=== PATIENT | female | born 1955 | race Caucasian/White ===

== ENCOUNTER → 2016-08-05 | Outpatient (CLI) | payer OTHER ==
--- NOTE | 2016-08-05 12:40 | MA ---
Screening Digital Mammogram With iCAD Analysis Clinical Indications: Routine screening. Her maternal grandmother was diagnosed with breast cancer in her 70s and a maternal aunt in her 60s. Technique: Standard cephalocaudal and mediolateral oblique projections were obtained. This examinatio n was processed by the iCAD computer aided detection system. Comparison: June 2015, May 2014, May 2013, May 2012, May 2011, April 2011, March 2010, February 2009. Breast density: Type C; Heterogeneously dense. Findings: CAD was reviewed. No masses, suspicious calcifications or other signs of malignancy are id entified. There has been no significant change in the appearance of either breast. Impression: Negative mammogram. BI-RADS 1. Recommendation: Routine screening in one year as long as physical examination is negative in this pat ient with heterogeneously dense breasts. [facility] a result letter to the patient. Dense breast parenchyma diminishes mammographic sensitivity. Negative mammography should not preclude additional workup of a clinically suspicious finding. The patient's information is entered into a reminder system with a target due date for her next mammo gram.
== END ==
LOC: BRMIMAGING 11:08
DX: Z12.31 Encounter for screening mammogram for malignant neoplasm of breast (principal)
CPT/HCPCS: G0202

== ENCOUNTER → 2017-08-20 | Outpatient (CLI) | payer OTHER | LOC: BRMIMAGING 11:08 | PROVIDERS: ATTEND Obstetrics & Gynecology | DX: Z12.31 Encounter for screening mammogram for malignant neoplasm of breast (principal) ==

== ENCOUNTER → 2018-08-21 | Outpatient (CLI) | payer OTHER | LOC: BRMIMAGING 10:52 | PROVIDERS: ATTEND Obstetrics & Gynecology | DX: Z12.31 Encounter for screening mammogram for malignant neoplasm of breast (principal); Z80.3 Family history of malignant neoplasm of breast ==

== ENCOUNTER 2018-09-03 05:28 | Inpatient (IN) | payer OTHER | END 2018-09-08 16:27 | LOC: F3N 05:28 → F2N 13:02 ==

== ENCOUNTER 2018-09-15 14:38 | Inpatient (IN) | payer OTHER ==
[2018-09-15] MEDS ORDERED: ACETAMINOPHEN 325 MG TAB PO PRN (17:22)
[2018-09-15] MEDS ORDERED: GADOBUTROL 10 ML VIAL IVP ONE (18:09)
[2018-09-15] MEDS: NS 1,000 ML IV SCH (21:16)
[2018-09-15] MEDS: oxyCODONE IR 5 MG TAB PO PRN (21:17)
[2018-09-15 22:22] LABS: PLATELET COUNT 410 10^3/uL (150-400)
[2018-09-16] MEDS ORDERED: BUPIVACAINE 0.25% 30 ML SDV ONE (00:03)
[2018-09-16] MEDS ORDERED: EPINEPHrine 1 MG/ML INJ ONE (00:03)
[2018-09-16] MEDS ORDERED: CHLORHEXIDINE GLUC HIBICLENS 118 ML BTL TP ONE (00:03)
[2018-09-16] MEDS ORDERED: THROMBIN (BOVINE) 5,000 UNIT VIAL TP ONE (00:03)
[2018-09-16] MEDS ORDERED: BACITRACIN 50,000 UNITS/10 ML SYR IRR ONE ×2 (00:04→06:50)
[2018-09-16] MEDS ORDERED: AVITENE POWDER 1 GM JAR TP ONE (00:05)
[2018-09-16] MEDS: HYDROmorphONE/DILAUDID 1 MG/ML INJ IVP PRN (03:07)
[2018-09-16 05:19] LABS: PLATELET COUNT 392 10^3/uL (150-400)
[2018-09-16] MEDS ORDERED: MIDAZOLAM 2 MG/2 ML VIAL IVP ONE (05:47)
--- NOTE | 2018-09-16 05:50 | PDANEPAE ---
ANE History of Present Illness infection s/p back surgery on 09/03/18 ANE Past Medical History - Cardiovascular History Hx Hypertension: No Hx Arrhythmias: No Hx Chest Pain: No Hx Coronary Artery / Peripheral Vascular Disease: No Hx CHF / Valvular Disease: No Hx Palpitations: No Cardiovascular History Comment: RUNS LOW BP - Pulmonary History Hx COPD: No Hx Asthma/Reactive Airway Disease: No Hx Recent Upper Respiratory Infection: No Hx Oxygen in Use at Home: No Hx Sleep Apnea: No Sleep Apnea Screening Result - Last Documented: Negative - Neurologic History Hx Cerebrovascular Accident: No Hx Seizures: No Hx Dementia: No - Endocrine History Hx Diabetes: No Hypothyroid: Yes Hyperthyroid: No Obesity: no Endocrine History Comment: HYPOTHYROID - Renal History Hx Renal Disorders: Yes Renal History Comment: URINARY RETENTION - Liver History Hx Hepatic Disorders: No - Neurological & Psychiatric Hx Hx Neurological and Psychiatric Disorders: No - Cancer History Hx Cancer: No Cancer History Comment: BASAL CELLS REMOVED - Congenital Disorder History Hx Congenital Disorders: No - GI History Hx Gastrointestinal Disorders: No Gastrointestinal History Comment: GERD - Other Health History Other Health History: MICH OVARIAN CYSTS. DDD. SCOLOSIS. CHRONIC BACK PAIN - Chronic Pain History Chronic Pain: Yes (BACK) - Surgical History Prior Surgeries: NONE ANE Review of Systems Review of systems is: negative Review of Systems: - Exercise capacity Exercise capacity: >=4 METS ANE Patient History - Allergies Allergies/Adverse Reactions: Penicillins Allergy (Verified 09/03/18 06:36) Rash - Home Medications Home Medications: Levothyroxine [Synthroid 88 mcg (*)] 88 mcg PO HS 01/04/16 [Last Taken 09/02/18 21:00] Multivitamins [Multivitamin (*)] 1 each PO DAILY 01/04/16 [Last Taken 08/24/18] Estring 1 each VG Q90D 08/17/18 [Last Taken 08/24/18] [place]-3 Fatty Acids [Fish Oil 1000 mg (*)] 1,000 mg PO DAILY 08/17/18 [Last Taken 08/24/18] Herbals/Supplements -Info Only 1 ea PO 09/15/18 [Last Taken Unknown] Hydrocodone/Acetaminophen [Hydrocodon-Acetaminophen 5-325] 1 - 2 each PO Q4- 6PRN PRN 09/15/18 [Last Taken Unknown] Ibuprofen [Ibu-200] 200 - 600 mg PO Q8HRS PRN 09/15/18 [Last Taken Unknown] - NPO status NPO Status: no food or drink >8 hours NPO Since - Liquids (Date): 09/15/18 NPO Since - Liquids (Time): 23:55 NPO Since - Solids (Date): 09/15/18 NPO Since - Solids (Time): 22:00 - Anes Hx Anes Hx: no prior problems - Smoking Hx Smoking Status: Former smoker - Family Anes Hx Family Anes Hx: none Family Hx Anesthesia Complications: NONE ANE Labs/Vital Signs - Labs Result Diagrams: 09/16/18 04:45 09/15/18 19:17 - Vital Signs Vital Signs: reviewed preoperatively; see RN documention for details Blood Pressure: 100/65 Heart Rate: 97 Respiratory Rate: 16 O2 Sat (%): 94 Height: 162.56 cm Weight: 54.25 kg ANE Physical Exam - Airway Neck exam: FROM Mallampati Score: Class 2 Mouth exam: normal dental/mouth exam - Pulmonary Pulmonary: no respiratory distress - Cardiovascular Cardiovascular: regular rate and rhythym - ASA Status ASA Status: II, E ANE Anesthesia Plan Anesthesia Plan: general endotracheal anesthesia
[2018-09-16] MEDS ORDERED: MIDAZOLAM 2 MG/2 ML VIAL ONE (05:53)
[2018-09-16] MEDS ORDERED: PROPOFOL 200 MG/20 ML VIAL ONE (05:56)
[2018-09-16] MEDS ORDERED: LACTULOSE 20 GM/30 ML UDCUP PO PRN (05:57)
[2018-09-16] MEDS ORDERED: BISACODYL 10 MG SUPP PR PRN (05:57)
[2018-09-16] MEDS ORDERED: fentaNYL 100 MCG/2 ML INJ ONE (05:57)
[2018-09-16] MEDS ORDERED: NALOXONE HCL 0.4 MG/ML INJ IVP PRN ×2 (05:57→07:11)
[2018-09-16] MEDS ORDERED: diphenhydrAMINE 25 MG CAP PO PRN (05:57)
--- NOTE | 2018-09-16 05:57 | PDHPUP ---
History & Physical Update H&P update statement: This history and physical update is based on an assessment of the patient which was completed after admission or registration (within 24 hours), but prior to the surgery/procedure. H&P update: H&P reviewed & patient examined, no change in patient's condition since H&P completed
[2018-09-16] MEDS ORDERED: ESTRING VG SCH (06:00)
--- NOTE | 2018-09-16 06:22 | SOAPPROG ---
SOAP Progress Note Assessment/Plan: Plan: Pt has post op fluid collection noted on MRI of the L spine. She has an elevated CRP and WBC. She has lower back pain. Dr Kuo is worried about post op infection. CXR ok. UA ok. Pt's MRI was reviewed with Dr Kuo and recommended to take for I and D of L spine incision. Consents reviewed in detail. Risks and need for surgery was discussed and reviewed. Pt understands and agrees and wants to proceed. To OR this am at 0600 09/16/18 06:19 Objective: Vital Signs Temp Pulse Resp BP Pulse Ox 38.1 C 97 16 100/65 94 09/16/18 03:12 09/16/18 05:50 09/16/18 05:50 09/16/18 05:50 09/16/18 05:50 Laboratory Results 09/16/18 04:45 09/15/18 19:17 09/15/18 09/16/18 09/17/18 05:59 05:59 05:59 Output Total 1700 Balance -1700 ICD10 Worksheet Patient Problems: Problems Problem Status Onset Fusion of spine of thoracolumbar region Acute MRSA (methicillin resistant Staphylococcus aureus) Acute 08/02/16
[2018-09-16] MEDS ORDERED: DEXAMETHASONE 4 MG/ML VIAL ONE (06:26)
[2018-09-16] MEDS ORDERED: ONDANSETRON 4 MG/2 ML VIAL ONE (06:26)
[2018-09-16] MEDS ORDERED: ROCURONIUM 50 MG/5 ML VIAL ONE (06:26)
[2018-09-16] MEDS ORDERED: VANCOMYCIN 1 GM VIAL ONE ×2 (06:49→07:03)
[2018-09-16] MEDS ORDERED: VANCOMYCIN HCL/NORMAL SALINE 250 ML IV ONE (07:00)
[2018-09-16] MEDS ORDERED: CEFUROXIME 1,500 MG in NS 50 ML IV SCH (07:00)
[2018-09-16] MEDS ORDERED: SUGAMMADEX SODIUM 200 MG/2 ML VIAL IVP ONE (07:05)
[2018-09-16] MEDS ORDERED: oxyCODONE IR 5 MG TAB PO PRN (07:11)
[2018-09-16] MEDS ORDERED: LABETALOL HCL 5 MG/ML 20 ML MDV IVP PRN (07:11)
[2018-09-16] MEDS ORDERED: PROMETHAZINE HCL 25 MG/ML INJ IVP PRN (07:11)
[2018-09-16] MEDS ORDERED: MEPERIDINE 25 MG/0.5 ML AMP IVP PRN (07:11)
[2018-09-16] MEDS ORDERED: METOCLOPRAMIDE 10 MG/2 ML VIAL IVP PRN (07:11)
[2018-09-16] MEDS ORDERED: PHENYLEPHRINE HCL 100 MCG/ML SYR IVP PRN (07:11)
[2018-09-16] MEDS ORDERED: DEXAMETHASONE 4 MG/ML VIAL IVP PRN (07:11)
[2018-09-16] MEDS ORDERED: ONDANSETRON 4 MG/2 ML VIAL IVP PRN (07:11)
[2018-09-16] MEDS ORDERED: ALBUTEROL 3 ML DEYVIAL IH PRN (07:11)
[2018-09-16] MEDS ORDERED: ACETAMINOPHEN 500 MG TAB PO PRN (07:11)
[2018-09-16] MEDS ORDERED: KETOROLAC 30 MG/1 ML SDV ONE (07:18)
[2018-09-16] MEDS ORDERED: BACITRACIN ZINC 0.5 OZ OINTTUBE TP ONE (07:26)
--- NOTE | 2018-09-16 07:46 | POSTOPPROG ---
Post Op Note Date of Operation: 09/16/18 Surgeon: Yan Nolasco Biology Lecturer: RENATA Hayden Anesthesiologist: MD Tom Anesthesia: GET(General Endotracheal) Pre-op Diagnosis: back pain after T-L spine surgery, fevers Post-op Diagnosis: wound infection Indication: elevated CRP/ESR and fevers Procedure: wound washout for T-L spine fusion Findings: see op report Inf/Abcess present in the surg proc area at time of surgery?: No Depth: Deep Incisional (Fascial) EBL: 100-500 Total fluids administered: see anesthesia record Complications: none Bowel Protocol: Yes Clean Closure Performed: Yes Drains: Baldo Lord Specimen(s): cultures
[2018-09-16] MEDS: fentaNYL 100 MCG/2 ML INJ IVP PRN ×4 (07:49→08:27)
--- NOTE | 2018-09-16 07:52 | SOAPPROG ---
SOAP Progress Note Assessment/Plan: Post Op Visit: S: Awake and alert. NAD. Pt with expected back pain O: AFVSS/PERRLA/EOMI no droop CN 2-12 grossly intact +lt touch 5/5 BUE/BLE = ROLF in place Dressing in place A/P: 63 yo female that is s/p wound wash out of a T-L fusion from 3 weeks ago -orders in place -call with any questions or concerns -pt understands and agrees -Dr Adams consulted -Hospitalist consulted -Pharmacy to dose Vanco -pt understands and agrees 09/16/18 07:51 Objective: Vital Signs Temp Pulse Resp BP Pulse Ox 38.1 C 97 16 100/65 94 09/16/18 03:12 09/16/18 07:20 09/16/18 07:20 09/16/18 07:20 09/16/18 07:20 Microbiology 09/16/18 06:50 Gram Stain - Final Other - Eswab 09/16/18 06:50 Gram Stain - Final Other - Eswab 09/16/18 06:50 Gram Stain - Final Other - Eswab Laboratory Results 09/16/18 04:45 09/15/18 19:17 09/15/18 09/16/18 09/17/18 05:59 05:59 05:59 Output Total 1700 Balance -1700 ICD10 Worksheet Patient Problems: Problems Problem Status Onset Arthrodesis status Acute Post op infection Acute Fusion of spine of thoracolumbar region Acute MRSA (methicillin resistant Staphylococcus aureus) Acute 08/02/16 - ICD10 Problem Qualifiers (1) Post op infection Qualifiers: Encounter type: initial encounter Postoperative infection type: deep incisional surgical site Qualified Code(s): T81.42XA - Infection following a procedure, deep incisional surgical site, initial encounter (2) Arthrodesis status
[2018-09-16] MEDS ORDERED: VANCOMYCIN HCL/NORMAL SALINE 250 ML IV SCH ×3 (08:00→19:30)
[2018-09-16] MEDS: HYDROmorphONE/DILAUDID 2 MG/ML INJ IVP PRN ×3 (08:00→08:39)
[2018-09-16] MEDS: ACETAMINOPHEN 500 MG TAB PO SCH ×2 (08:34→22:20)
--- NOTE | 2018-09-16 08:59 | PDMN ---
Medical Necessity Medical necessity: Change to IP, as of 09/16/18, per PA & MCG MG-SIC Systemic or Infectious Condition; los >2 mn for eval/tx of post-op wound infection w/ elevated WBC/CRP & fevers; fluid collection noted on MRI of spine; requiring urgent I&D, PICC placement, IV abx & pain management; hx recent T11-L5 fusion
[2018-09-16] MEDS: ONDANSETRON 4 MG/2 ML VIAL IVP PRN (09:32)
[2018-09-16] MEDS: METHOCARBAMOL 750 MG TAB PO PRN ×2 (09:35→15:15)
[2018-09-16] MEDS: GABAPENTIN 300 MG CAP PO SCH ×2 (09:36→22:20)
[2018-09-16] MEDS: SENNOSIDES/DOCUSATE SODIUM TAB PO SCH ×2 (09:36→20:24)
[2018-09-16] MEDS: POLYETHYLENE GLYCOL 3350 17 GM PKT PO PRN (09:37)
[2018-09-16] MEDS: HYDROCODONE/APAP 5/325 TAB PO PRN ×3 (09:38→20:24)
[2018-09-16] MEDS: FAMOTIDINE 20 MG TAB PO SCH ×2 (09:46→20:25)
--- NOTE | 2018-09-16 10:33 | ASMTCMCOM ---
CM Note CM Note Notes: Pt had I&D for wound infection, had a spinal fusion 3 weeks ago at [facility]. Pt went to [facility] inpatient rehab and d/c from [facility] 09/12/18. Pt now on IV Vanco. Pt has no HHC, pt d/c from [facility] with outpatient therapies set up. Pt resides with renetta Mejia who has been bedside. OT/PT evals pending. CM to follow for d/c planning. Date Signed: 09/16/2018 10:33 AM Electronically Signed By:BRANDY Phillip
--- NOTE | 2018-09-16 10:35 | GOP ---
[f rep st] OPERATIVE REPORT DATE OF OPERATION: 09/16/2018 SURGEON: Yan Nolasco MD NEUROSURGEON: Dr. Yan Nolacso WIRE TINNER: Marshal Hayden PA-C ANESTHESIA: General endotracheal. PREOPERATIVE DIAGNOSIS: Infected complex deep postsurgical wound of the thoracolumbar spine. POSTOPERATIVE DIAGNOSIS: Infected complex deep postsurgical wound of the thoracolumbar spine. PROCEDURE PERFORMED: Incision and drainage/washout of deep complex postoperative wound in the thorac olumbar spine. FINDINGS: ESTIMATED BLOOD LOSS: Trace. INDICATIONS: The patient is a 63-year-old woman who recently underwent extensive thoracolumbar spina l reconstruction surgery involving instrumentation and multilevel fusion who presents with fevers, sw eats, chills, and elevated white blood count. She presents now for exploration of her wound. DESCRIPTION OF PROCEDURE: After informed consent was obtained, the patient was taken to the operatin g room and placed in the prone position on the Baldo table. The thoracolumbosacral areas were prep ped and draped in a sterile fashion, and the prior incision carefully opened all the way down to belo w the fascia where there was an extensive amount of purulent material and was widely decompressed and copiously irrigated with approximately 4 to 5 liters of antibiotic solution. A drain was then place d and vancomycin powder placed in the wound, and the wound was then closed in a layered fashion using interrupted Vicryl sutures, followed by tyler in the skin. COMPLICATIONS: None. DISPOSITION: The patient was extubated and transferred to the recovery room in stable condition. /[id number]/MODL
--- NOTE | 2018-09-16 19:32 | GCON ---
[f rep st] CONSULTATION INFECTIOUS DISEASE CONSULTATION REFERRING PHYSICIAN: Yan Nolasco MD REASON FOR CONSULTATION: Postoperative infection and bacteremia. HPI: 63-year-old woman who is healthy, other than osteoarthritis of the spine who underwent a T11 to L5 fusion on 09/03/2018. She did well postoperatively with significant relief in the back pain and leg pain prior to the procedure. She originally went to rehab, but was discharged on the , at which time she started to note increasing low back pain. This back pain was progressive and was characterized as " massive" by September 14, at which time she underwent laboratory evaluation and found to have a markedly elevated white count at 20,000, an ESR of 144, and a CRP of 36. She underwent an MRI of the T and L-spine, and it was identified she had an ill-defined fluid collection, most prominent at L3-L4. Patient went back to the OR today, September 16 with purulence noted down to hardware. Debridement occurred and drain was placed postoperatively. Preoperatively, blood cultures were collected and grew out in less than 24 hours showing MRSA. Gram stain of tissue from the OR also showed GPCs. Patient was empirically started on IV vancomycin once hospitalized. Notably, patient does have a history of MRSA 2 years ago. Preceding return to the hospital today, patient did describe chills at home and a temperature over 102. PAST MEDICAL/SURGICAL HISTORY: Ingrown toenail 2 years ago, positive for MRSA. She was evaluated by Infectious Disease doctor in [place]. She had bilateral oophorectomy for cysts. 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 No tobacco. Minimal alcohol. She lives in [place]. She is for 30 years. FAMILY HISTORY: Positive for colon cancer in her dad and breast cancer in multiple first-degree relatives. ALLERGIES: Penicillin occurred 30 years ago with a rash, did not require hospitalization. MEDICATIONS: Vancomycin x1 one g and was dosed at 750 mg IV q.12 h. REVIEW OF SYSTEMS: A complete 10-point review of systems was performed and is negative, except as mentioned in the HPI. PHYSICAL EXAMINATION: VITAL SIGNS: Reviewed. GENERAL: This is a pleasant articulate woman who appears younger than her stated age, lying in bed with mild pallor, in no acute distress. HEENT: Good dentition. Moist mucous membranes. No oral ulcerations or exudate. NECK: Supple. CARDIOVASCULAR: Regular rate and rhythm with a 2/6 systolic murmur loudest at the upper left sternal border. CHEST: Clear to auscultation bilaterally. ABDOMEN: Soft. BACK : Incision was covered with recent surgical dressings and a ROLF drain was in place with no drainage in the bulb at this point. NEUROLOGIC: the lower extremity strength and sensation were intact. SKIN: No rashes. Peripheral IV right forearm clean, dry, and intact. LABORATORY: Showed elevated white count, normal creatinine. Blood cultures from 09/15/2018, showed 2 sets positive for MRSA. OR samples from today, gram- positive cocci 3+ and PMNs. IMAGING: As per HPI. ASSESSMENT AND PLAN: Methicillin-resistant Staphylococcus aureus deep postoperative thoracic and lumbar spine deep wound infection complicated by bacteremia. 1. Contact precautions. 2. Systolic murmur noted on exam. We will perform a surface echo and discussed the potential for complications, such as endocarditis with patient at bedside. 3. Discussed duration of intravenous antibiotic therapy and process for blood culture clearance and placement of the PICC line, as well as suppressive antibiotics at the end of therapy. 4. Discussed risks and benefits of intravenous vancomycin, including renal toxicity and complication of Clostridium difficile. Time was 85 minutes, greater than 50% of time spent with education and counseling regarding IV antibiotic therapy, duration of 8 weeks, and planned additional evaluation with echocardiogram, and concerns for complications of endocarditis. /[id number]/MODL TIARRA
--- NOTE | 2018-09-16 19:32 | GHP ---
[f rep st] PREOP HISTORY AND PHYSICAL DATE OF ADMISSION: 09/15/2018 CHIEF COMPLAINT: Back pain. HISTORY OF PRESENT ILLNESS: The patient is a 63-year-old female who underwent a T11 through L5 posterior instrumentation and fusion with Dr. Nolasco approximately 3 weeks ago. She was discharged from [facility] and sent to inpatient rehab. She was discharged from rehab on September 12. She noticed some worsening back pain on the and contacted [facility] on September 14. Her back pain had improved by then, and she had a followup appointment scheduled for September 16. It was discussed that we should have her just monitor her symptoms. She contacted [facility] again on 09/15/18 with worsening back pain and spasms. Some blood work was obtained including a CBC, ESR, and CRP, all of which were elevated. At that point, it was decided she should be admitted to the hospital for further evaluation and treatment. She currently complains of ongoing back pain. She has some hypersensitivity in the right anterior thigh. She is not having any leg weakness, ataxia, bowel or bladder problems, or incontinence. She has noticed some shivering. PAST MEDICAL HISTORY: Recent spine surgery. MEDICATIONS: Prior to admission, please see medication list. ALLERGIES: No known drug allergies. FAMILY HISTORY: Patient has no family history of spinal problems. SOCIAL HISTORY: Patient is with grown children. She denies smoking, drinking, drug use. REVIEW OF SYSTEMS: Negative. PHYSICAL EXAMINATION: GENERAL: Patient is a 63-year-old female lying in bed in no apparent distress today. HEAD/EYES/EARS/NOSE/THROAT: Negative for drainage. EXTREMITIES: Sumpter, warm, and dry. NEUROLOGICAL: Patient is awake, alert, oriented x4. Pupils equal, round, reactive to light. Extraocular motions are intact. There is no evidence of facial droop. Tongue and uvula are midline. Spinal access muscles are intact. Her motor strength is 5/5 in her arms and legs. Her sensation is grossly intact to light touch in her arms and legs. Deep tendon reflexes are 1/4 throughout. Her incision is clean, dry , and intact. DIAGNOSTIC STUDIES: MRI of the lumbar spine at [facility] on shows postoperative changes consistent with a T11 through L5 fusion. There is a small amount of paraspinal fluid localized to the L3-4 level with slight enhancement. Blood cultures on admission 09/15/18 are positive for MRSA. Blood work prior to admission on 09/15/18, shows a white blood cell count of 20, ESR of 144, and CRP of 36, as well as elevated platelets of 540. IMPRESSION: This is a 63-year-old female who is approximately 3 weeks out from a T11 through L5 posterior instrumentation and fusion, admitted with a wound infection and methicillin-resistant Staphylococcus aureus bacteremia. She is neurologically stable. PLAN: All the above were discussed in detail with the patient. This patient was seen and examined by Dr. Nolasco. Dr. Nolasco took the patient to the operating this morning at 6 a.m. for incision and drainage of her lumbar wound. Initial cultures are consistent with gram-positive cocci, and she does have an MRSA bacteremia. She has been started on IV vancomycin, and Dr. Adams from Infectious Disease is seeing the patient currently. At this point in time , she has a ROLF drain in place, and we will continue the ROLF drain for an extended period of time. Her antibiotics will be handled by Infectious Disease. Please call with any neurological changes. /[id number]/MODL MTDD
--- NOTE | 2018-09-16 19:33 | GCON ---
[f rep st] CONSULTATION DATE OF CONSULTATION: 09/16/2018 REASON FOR CONSULTATION: I was asked by Dr. Nolasco to see the patient in regard to her medica l problems. HISTORY OF PRESENT ILLNESS: This is a 63-year-old female who had a recent T11-L5 fusion with rods on September 03. She did well postoperatively. She went to rehab shortly and was discharged. Approxim ately 4 days ago, she had an increase in her back pain, became severe yesterday. She saw Dr. Mya hernandez, labs revealed an ESR of 144 and a white count of 20,000. MRI showed a fluid collection in th e operative bed. She was taken back to the operating room where they found pus all the way down to h er hardware. Blood cultures were drawn and have already grown out MRSA. She is also complaining of some right leg neuropathic pain. PAST MEDICAL/SURGICAL HISTORY: 1. MRSA about 2 years ago due to an ingrown toenail. 2. Bilateral oophorectomy. 3. Facelift 10 years ago. MEDICATIONS: Please see medication reconciliation. ALLERGIES: Possibly to penicillin. FAMILY HISTORY: Cancer in her family. 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 She drinks about 1 glass of wine a wee k. REVIEW OF SYSTEMS: A 10-point review of systems is conducted and is negative except per HPI. PHYSICAL EXAM: VITAL SIGNS: Temperature is 39.4, heart rate is 97, blood pressure 100/65, heart rat e 83, respiration rate 16, saturating 94% on 2 L. GENERAL: The patient is a pleasant female who is resting comfortably. She is wearing a lumbar back support. She is in no acute distress. HEENT: ows her to be normocephalic, atraumatic. CARDIOVASCULAR: Shows regular rate and rhythm. I do not a ppreciate any murmurs, rubs, or gallops. PULMONARY: Shows her lungs to be clear to auscultation shree aterally. ABDOMEN: Below her brace is soft, nontender, nondistended. BACK: Shows her to have a short rgical dressing in place. It is mildly soaked through with serosanguineous fluid. SKIN: Shows no r grace. : No Iserra. NEUROLOGIC: Shows her to be alert and oriented x3. She is moving all extremit ies. PSYCHIATRIC: Exam shows normal mood and affect. LABORATORY DATA: Notable for white count of 20,000. ESR of 144. DATA: 1. Discussed with Dr. Adams. 2. Her MRI showed a fluid collection. IMPRESSION AND PLAN: 1. Perioperative infection down to rods with methicillin-resistant Staphylococcus aureus bacteremia: Vancomycin is being dosed per Infectious Disease. Echocardiogram has been ordered to evaluate for endocarditis. 2. Right leg neuropathic pain: I have placed a call to Bandar Hayden to further discuss this. I will review her gabapentin dose and potentially increase this. Thank you for involving Hospital Medicine in the care of this patient. We will continue to follow natividad watts. /[id number]/MODL
[2018-09-16 19:52] LABS: PLATELET COUNT 416 10^3/uL (150-400)
[2018-09-16] MEDS: VANCOMYCIN 750 MG in D5W 150 ML IV SCH (20:31)
[2018-09-16] MEDS ORDERED: LEVOTHYROXINE 88 MCG TAB PO SCH (21:00)
[2018-09-17] MEDS: ACETAMINOPHEN 500 MG TAB PO SCH ×4 (00:10→22:28)
[2018-09-17] MEDS: GABAPENTIN 300 MG CAP PO SCH ×4 (00:13→21:57)
[2018-09-17] MEDS: NS 1,000 ML IV SCH (00:40)
[2018-09-17] MEDS: METHOCARBAMOL 750 MG TAB PO PRN ×3 (00:49→23:47)
[2018-09-17] MEDS: oxyCODONE IR 5 MG TAB PO PRN ×6 (02:14→23:47)
[2018-09-17 05:43] LABS: PLATELET COUNT 374 10^3/uL (150-400)
--- NOTE | 2018-09-17 08:19 | NEUSURGPN ---
Date of Surgery: 09/16/18 Post Op Day: 1 Assessment/Plan: Assessment: 63 yo female that is s/p wound wash out of a T-L fusion from 3 weeks ago POD #1 Plan: -s/p I & D-POD #1: Pt with continued dc from incision. Initially drain was not working. Drain pulled back about 1.5 inches after securing stitch was removed. Drain was able to be pulled back. Drain flushed and working now. We will continue to watch this at this time. Dr Kuo updated -orders in place -call with any questions or concerns -pt understands and agrees -ID on board -Hospitalist on board -Pharmacy to dose Vanco-appreciate their input -pt understands and agrees -call with any questions or concerns Subjective: Awake and alert. NAD. Eating/drinking and voiding. No n/v/d. No neri/neck/ chest/abd or gu complaints. Objective: AFVSS/PERRLA/EOMI no droop CN 2-12 grossly intact +lt touch 5/5 BUE/BLE = ROLF in place-backed out 1.5 inches Dressing changed Neuro Check Frequency: per routine Urinary Catheter in Place: No - Physician Discussed Patient with : [facility] Physical Exam - Vitals, I&O, Labs I and O 09/16/18 09/17/18 09/18/18 05:59 05:59 05:59 Intake Total 1250 Output Total 1700 1 Balance -1700 1249 Weight 54.25 kg 54.25 kg Intake: IV Intake (ml) 800 IV Infused (ml) 450 Ns 1,000 ml @ 75 mls/hr 450 IV CONT CHEVY Rx#: [id number] Output: Urine (ml) 1700 1 Bedside Commode 1700 Toilet 1 Other: Number of Voids Bedside Commode 1 Number of Stools Toilet 1 Microbiology 09/15/18 19:21 Blood Panel (PCR) - Final Blood MRSA 09/16/18 06:50 Gram Stain - Final Other - Eswab 09/16/18 06:50 Gram Stain - Final Other - Eswab 09/16/18 06:50 Gram Stain - Final Other - Eswab Vital Signs Temp Pulse Resp BP Pulse Ox 36.8 C 83 14 83/53 L 96 09/17/18 07:58 09/17/18 07:58 09/17/18 07:58 09/17/18 04:00 09/17/18 07:58 Laboratory Results 09/17/18 05:00 09/17/18 05:00 ICD10 Worksheet Patient Problems: Problems Problem Status Onset Arthrodesis status Acute Post op infection Acute Fusion of spine of thoracolumbar region Acute MRSA (methicillin resistant Staphylococcus aureus) Acute 08/02/16 - ICD10 Problem Qualifiers (1) Post op infection Qualifiers: Encounter type: initial encounter Postoperative infection type: deep incisional surgical site Qualified Code(s): T81.42XA - Infection following a procedure, deep incisional surgical site, initial encounter (2) Arthrodesis status
[2018-09-17] MEDS: FAMOTIDINE 20 MG TAB PO SCH ×2 (08:37→21:57)
[2018-09-17] MEDS: VANCOMYCIN 750 MG in D5W 150 ML IV SCH ×2 (08:37→21:57)
[2018-09-17] MEDS: SENNOSIDES/DOCUSATE SODIUM TAB PO SCH ×2 (08:40→21:57)
--- NOTE | 2018-09-17 12:50 | PCMIDPN ---
Assessment/Plan: # MRSA deep postop infection complicated by MRSA bacteremia. Some measures of improvement with resolved leukocytosis and fever, but patient's back pain is minimally improved. --continue IV vancomycin, check vancomycin trough tomorrow. --repeat blood cultures tomorrow --will have to exchange PICC line over a wire after blood cultures are cleared --continue to monitor closely to reassess need for repeat debridement, place patient NPO after midnight --follow up on formal sensi MRSA # Systolic Murmur --ECHO to evaluate for possible endocarditis # H/o MRSA prior to surgery Medications Vancomycin 750 mg IV q.12, # 2 Microbiology 09/15/18 19:21 Blood Cx /2: MRSA 09/16/18 06:50 Surgical specimens all positive: MRSA Subjective: Patient with minimal improvement in back pain today. She felt a tiny bit better late yesterday but now her pain is back to levels it was prior to washout. Troubles with ROLF drain today with leakage of fluid around the drain. Objective: Vital Signs Temp Pulse Resp BP Pulse Ox 37.0 C 81 14 105/65 94 09/17/18 12:00 09/17/18 12:00 09/17/18 12:00 09/17/18 12:00 09/17/18 12:00 Microbiology 09/16/18 06:50 Gram Stain - Final Other - Eswab 09/16/18 06:50 Gram Stain - Final Other - Eswab 09/16/18 06:50 Gram Stain - Final Other - Eswab 09/15/18 19:21 Blood Panel (PCR) - Final Blood MRSA Laboratory Results 09/17/18 05:00 09/17/18 05:00 09/16/18 09/17/18 09/18/18 05:59 05:59 05:59 Intake Total 1250 Output Total 1700 1 500 Balance -1700 1249 -500 ESR 26 MM/HR (0-30) 09/15/18 22:10 C-Reactive Protein 220.9 mg/L (<10.0) H 09/15/18 22:10 - Physical Exam General Appearance: alert, no apparent distress Respiratory: No accessory muscle use Back: other (Al erythema over the thoracic component of incision with some dehiscence; ROLF drain with serosanguineous fluid, lumbar portion of incision with gauze saturated with serosanguineous fluid) Skin: pallor, No rash Neuro/Psych: alert, normal mood/affect, oriented x 3 - Line/s RUE PICC Lines: No drainage, No erythema - Time Spent With Patient Time Spent with Patient: greater than 35 minutes (Extensively reviewed course of treatment including 8 weeks of IV therapy, risks and benefits of vancomycin and need for ongoing suppressive antibiotic therapy following IV antibiotics) Time Spent with Patient: Greater than 35 minutes spent on this patients care, greater than 50% of time spent counseling, educating, and coordinating care regarding the above mentioned plan. ICD10 Worksheet Patient Problems: Problems Problem Status Onset Arthrodesis status Acute Post op infection Acute Fusion of spine of thoracolumbar region Acute MRSA (methicillin resistant Staphylococcus aureus) Acute 08/02/16
[2018-09-17] MEDS ORDERED: NEOMY SULF/BACITRAC ZN/POLY 30 GM OINTTUBE TP SCH (13:00)
--- NOTE | 2018-09-17 13:22 | HOSPPROG ---
Hospitalist Progress Note Assessment/Plan: # MRSA post-op infection with bacteremia - s/p debridement, operative cultures with MRSA - recheck BCx today - echo pending - cont pain control # R leg neuropathic pain - cont gabapentin # hypotension - this is approx baseline for her # Katelynna - better today Subjective: seen with her ; ongoing back pain; ongoing leg pain; normally her BP runs low Objective: Vital Signs Temp Pulse Resp BP Pulse Ox 37.0 C 81 14 105/65 94 09/17/18 12:00 09/17/18 12:00 09/17/18 12:00 09/17/18 12:00 09/17/18 12:00 Microbiology 09/16/18 06:50 Gram Stain - Final Other - Eswab 09/16/18 06:50 Gram Stain - Final Other - Eswab 09/16/18 06:50 Gram Stain - Final Other - Eswab 09/15/18 19:21 Blood Panel (PCR) - Final Blood MRSA Laboratory Results 09/17/18 05:00 09/17/18 05:00 09/16/18 09/17/18 09/18/18 05:59 05:59 05:59 Intake Total 1250 Output Total 1700 1 590 Balance -1700 1249 -590 high risk with MRSA bacteremia - Physical Exam Constitutional: no apparent distress, appears nourished, other (wearing brace) Cardiovascular: regular rate and rhythym, no murmur, rub, or gallop Respiratory: no respiratory distress, no rales or rhonchi, clear to auscultation Gastrointestinal: soft, non-tender abdomen, no palpable masses, No guarding, No rebound ICD10 Worksheet Patient Problems: Problems Problem Status Onset MRSA (methicillin resistant Staphylococcus aureus) Acute 08/02/16 Fusion of spine of thoracolumbar region Acute Post op infection Acute Arthrodesis status Acute
[2018-09-17] MEDS ORDERED: LEVOTHYROXINE 88 MCG TAB PO ONE (16:30)
[2018-09-17] MEDS: HYDROmorphONE/DILAUDID 1 MG/ML INJ IVP PRN ×2 (16:40→23:36)
[2018-09-17] MEDS: HYDROCODONE/APAP 5/325 TAB PO PRN (20:30)
[2018-09-18] MEDS: HYDROmorphONE/DILAUDID 6 MG/30 ML PCA IV PRN (01:00)
[2018-09-18] MEDS: BACITRACIN/POLYMYXIN B SULFATE 28.3 GM TUBE TP SCH ×3 (02:09→22:43)
[2018-09-18 03:27] LABS: PLATELET COUNT 409 10^3/uL (150-400)
[2018-09-18] MEDS: GABAPENTIN 300 MG CAP PO SCH ×4 (05:10→20:33)
[2018-09-18] MEDS ORDERED: LEVOTHYROXINE 88 MCG TAB PO ONE (06:00)
[2018-09-18] MEDS: ACETAMINOPHEN 500 MG TAB PO SCH ×3 (06:37→22:42)
[2018-09-18] MEDS ORDERED: VANCOMYCIN 1,000 MG in D5W 150 ML IV SCH (08:31)
--- NOTE | 2018-09-18 08:33 | PDIAF ---
- Diagnosis Diagnosis: MRSA bacteremia and post op infection T-L spine Code Status: Full Code - Medication Management Roll Wrapper Antibiotics: vancomycin 1.75gm IV continous infusion Custodial Antibiotic Stop Date: 11/13/18 Discharge Medications: electronically signed and located in the Home Medication List. PICC Care - Routine: Yes - Labs/Radiology BMP Date: 10/01/18 (Weekly ) CBC w/diff Date: 09/28/18 (Weekly Friday) CMP Date: 09/28/18 (Weekly Friday) CRP Date: 09/28/18 (Weekly Friday) Vanco Trough Date and Time: Weekly Friday and Vanco Random Date: 09/24/18 (Weekly Friday and ) Call or Fax Lab and Imaging Results to: Arlette Adams MD [facility] at fax [phone] - Follow Up Care Current Providers and Referrals: Arlette Adams MD [Medical Doctor] - 09/30/18 1:00 pm PATRIZIA WARD [Primary Care Provider] -
--- NOTE | 2018-09-18 08:43 | SOAPPROG ---
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 Kuo and he is ok with giving blood today. Discussed MRSA infection with Dr. Kuo and Dr. Adams and they agree to another wound washout today. Patient in agreement to proceed. Continue ROLF drain Continue PT/OT as tolerated. 09/18/18 08:40 09/18/18 08:54 Subjective: Lying in bed, pain better controlled now with GUN REPAIR CLERK. Still reports back pain and sciatica bilaterally in buttocks and post thighs. Denies numbness, tingling or weakness Objective: Vital Signs Temp Pulse Resp BP Pulse Ox 37.5 C 87 16 103/66 97 09/18/18 04:59 09/18/18 04:59 09/18/18 04:59 09/18/18 04:59 09/18/18 04:59 Microbiology 09/15/18 19:21 Blood Culture - Final Blood MRSA Blood Panel (PCR) - Final MRSA 09/15/18 19:17 Blood Culture - Final Blood MRSA 09/16/18 06:50 Gram Stain - Final Other - Eswab 09/15/18 22:45 Urine Culture - Final Urine,Clean Catch Escherichia Coli Staphylococcus Sp Coag Neg Two [place] Types 09/16/18 06:50 Gram Stain - Final Other - Eswab 09/16/18 06:50 Gram Stain - Final Other - Eswab Laboratory Results 09/18/18 03:00 09/18/18 07:50 09/17/18 09/18/18 09/19/18 05:59 05:59 05:59 Intake Total 1250 800 Output Total 1 2480 Balance 1249 -1680 Neuro: RICE, sens +LT 5/5 bilateral LE INcision:Draining clear, yellowish fluid. Upper dressing is saturated. ROLF: 280 ml overnight ICD10 Worksheet Patient Problems: Problems Problem Status Onset Arthrodesis status Acute Post op infection Acute Fusion of spine of thoracolumbar region Acute MRSA (methicillin resistant Staphylococcus aureus) Acute 08/02/16
--- NOTE | 2018-09-18 08:49 | PCMIDPN ---
Assessment/Plan: # MRSA deep postop infection complicated by MRSA bacteremia. Some measures of improvement with resolved leukocytosis and fever, but patient's back pain significantly worsened overnight requiring a CARDIOPULMONARY TECHNICIAN AND EEG TECH pump and significant ongoing wound drainage --vanco trough a little low this AM, increase vancomycin 1gm IV q12, plan to dc on continuous infusion --recommended repeat washout of back due today to lack of improvement of severe back pain suggestive of ongoing inflammation and infection in the wound bed. Care coordinated with neurosurgical team --PICC line will need to be exchanged before discharge --repeat blood cultures today # Systolic Murmur --ECHO to evaluate for possible endocarditis # H/o MRSA prior to surgery Medications Vancomycin 1000 mg IV q.12, #3 Microbiology 09/15/18 19:21 Blood Cx 08/08: MRSA vancomycin VAISHNAVI= 1 09/16/18 06:50 Surgical specimens all positive: MRSA Subjective: Patient states she has had the worst back pain of her life last night. Pain radiating down bilateral legs Objective: Vital Signs Temp Pulse Resp BP Pulse Ox 37.5 C 87 16 103/66 97 09/18/18 04:59 09/18/18 04:59 09/18/18 04:59 09/18/18 04:59 09/18/18 04:59 Microbiology 09/15/18 19:21 Blood Culture - Final Blood MRSA Blood Panel (PCR) - Final MRSA 09/15/18 19:17 Blood Culture - Final Blood MRSA 09/16/18 06:50 Gram Stain - Final Other - Eswab 09/15/18 22:45 Urine Culture - Final Urine,Clean Catch Escherichia Coli Staphylococcus Sp Coag Neg Two [place] Types 09/16/18 06:50 Gram Stain - Final Other - Eswab 09/16/18 06:50 Gram Stain - Final Other - Eswab Laboratory Results 09/18/18 03:00 09/18/18 07:50 09/17/18 09/18/18 09/19/18 05:59 05:59 05:59 Intake Total 1250 800 Output Total 1 2480 Balance 1249 -1680 ESR 26 MM/HR (0-30) 09/15/18 22:10 C-Reactive Protein 220.9 mg/L (<10.0) H 09/15/18 22:10 - Physical Exam General Appearance: alert, apparent distress (Due to pain) EENT: pale conjunctiva, dry mucous membranes, No scleral icterus Respiratory: lungs clear, No accessory muscle use Neck: supple Cardiac/Chest: regular rate, rhythm Abdomen: non-tender, soft Back: other (Dressing from back incision completely transient serosanguineous fluid, appearance of T-spine incision somewhat prabha with small amount of necrotic material in the medial portion of the incision, crepitus along left side of incision) Skin: pallor, No jaundice, No rash Neuro/Psych: alert, depressed affect, other (Moving lower extremities equally, motor intact) - Line/s RUE PICC Lines: No drainage, No erythema - Time Spent With Patient Time Spent with Patient: greater than 35 minutes Time Spent with Patient: Greater than 35 minutes spent on this patients care, greater than 50% of time spent counseling, educating, and coordinating care regarding the above mentioned plan. ICD10 Worksheet Patient Problems: Problems Problem Status Onset Arthrodesis status Acute Post op infection Acute Fusion of spine of thoracolumbar region Acute MRSA (methicillin resistant Staphylococcus aureus) Acute 08/02/16
[2018-09-18] MEDS: FAMOTIDINE 20 MG TAB PO SCH ×2 (08:55→20:33)
[2018-09-18] MEDS: METHOCARBAMOL 750 MG TAB PO PRN ×3 (08:55→22:42)
[2018-09-18] MEDS: SENNOSIDES/DOCUSATE SODIUM TAB PO SCH ×2 (08:55→20:33)
[2018-09-18] MEDS: VANCOMYCIN HCL/NORMAL SALINE 250 ML IV SCH ×2 (08:58→20:34)
[2018-09-18] MEDS ORDERED: BACITRACIN 50,000 UNITS/10 ML SYR IRR ONE ×2 (09:09→10:27)
[2018-09-18] MEDS ORDERED: BUPIVACAINE/EPI 0.25% 10 ML SDV ONE (09:09)
--- NOTE | 2018-09-18 09:15 | POSTANESTH ---
Post Anesthetic Evaluation Cardiovascular Status: Normal, Stable Respiratory Status: Normal, Stable Level of Consciousness/Mental Status: Can Participate in Eval Pain Control: Adequate, Prn Tx Ordered Nausea/Vomiting Control: Adequate, Prn Tx Ordered Complications Possibly Related to Anesthesia: None Noted Notes: for surgery on 09/16/18
--- NOTE | 2018-09-18 09:17 | PDANEPAE ---
ANE History of Present Illness back infection s/p back surgery ANE Past Medical History - Cardiovascular History Hx Hypertension: No Hx Arrhythmias: No Hx Chest Pain: No Hx Coronary Artery / Peripheral Vascular Disease: No Hx CHF / Valvular Disease: No Hx Palpitations: No Cardiovascular History Comment: RUNS LOW BP - Pulmonary History Hx COPD: No Hx Asthma/Reactive Airway Disease: No Hx Recent Upper Respiratory Infection: No Hx Oxygen in Use at Home: No Hx Sleep Apnea: No Sleep Apnea Screening Result - Last Documented: Negative - Neurologic History Hx Cerebrovascular Accident: No Hx Seizures: No Hx Dementia: No - Endocrine History Hx Diabetes: No Hypothyroid: Yes Hyperthyroid: No Obesity: no Endocrine History Comment: HYPOTHYROID - Renal History Hx Renal Disorders: Yes Renal History Comment: URINARY RETENTION - Liver History Hx Hepatic Disorders: No - Neurological & Psychiatric Hx Hx Neurological and Psychiatric Disorders: No - Cancer History Hx Cancer: No Cancer History Comment: BASAL CELLS REMOVED - Congenital Disorder History Hx Congenital Disorders: No - GI History Hx Gastrointestinal Disorders: No Gastrointestinal History Comment: GERD - Other Health History Other Health History: MICH OVARIAN CYSTS. DDD. SCOLOSIS. CHRONIC BACK PAIN - Chronic Pain History Chronic Pain: Yes (BACK) - Surgical History Prior Surgeries: NONE ANE Review of Systems Review of systems is: negative Review of Systems: - Exercise capacity Exercise capacity: >=4 METS ANE Patient History - Allergies Allergies/Adverse Reactions: Penicillins Allergy (Verified 09/03/18 06:36) Rash - Home Medications Home medications: home medication list seen and reviewed Home Medications: RX: Levothyroxine [Synthroid 88 mcg (*)] 88 mcg PO HS 01/04/16 [Last Taken 09/02 21:00] RX: Multivitamins [Multivitamin (*)] 1 each PO DAILY 01/04/16 [Last Taken ] Estring 1 each VG Q90D 08/17/18 [Last Taken 08/24/18] RX: [place]-3 Fatty Acids [Fish Oil 1000 mg (*)] 1,000 mg PO DAILY 08/17/18 [Last Taken 08/24/18] Hydrocodone/Acetaminophen [Hydrocodon-Acetaminophen 5-325] 1 - 2 each PO Q4- 6PRN PRN 09/15/18 [Last Taken Unknown] Ibuprofen [Ibu-200] 200 - 600 mg PO Q8HRS PRN 09/15/18 [Last Taken Unknown] RX: Herbals/Supplements -Info Only 1 ea PO DAILY 09/15/18 [Last Taken Unknown] - NPO status NPO Status: no food or drink >8 hours NPO Since - Liquids (Date): 09/15/18 NPO Since - Liquids (Time): 23:55 NPO Since - Solids (Date): 09/15/18 NPO Since - Solids (Time): 22:00 - Anes Hx Anes Hx: no prior problems - Smoking Hx Smoking Status: Former smoker - Family Anes Hx Family Hx Anesthesia Complications: NONE ANE Labs/Vital Signs - Labs Result Diagrams: 09/18/18 03:00 09/18/18 07:50 - Vital Signs Vital Signs: reviewed preoperatively; see RN documention for details Blood Pressure: 103/66 Heart Rate: 87 Respiratory Rate: 16 O2 Sat (%): 97 Height: 162.56 cm Weight: 54.25 kg ANE Physical Exam - Airway Neck exam: FROM Mallampati Score: Class 2 Mouth exam: normal dental/mouth exam - Pulmonary Pulmonary: no respiratory distress - Cardiovascular Cardiovascular: regular rate and rhythym - ASA Status ASA Status: II ANE Anesthesia Plan Anesthesia Plan: general endotracheal anesthesia
[2018-09-18] MEDS ORDERED: NS 1,000 ML IV ONE (09:28)
[2018-09-18] MEDS ORDERED: MIDAZOLAM 2 MG/2 ML VIAL IVP ONE (09:29)
[2018-09-18] MEDS ORDERED: PROPOFOL 200 MG/20 ML VIAL ONE (09:36)
[2018-09-18] MEDS ORDERED: LIDOCAINE 2% 5 ML SDV ONE (09:38)
[2018-09-18] MEDS ORDERED: ROCURONIUM 50 MG/5 ML VIAL ONE (09:39)
[2018-09-18] MEDS ORDERED: fentaNYL 100 MCG/2 ML INJ ONE ×2 (09:40→12:08)
[2018-09-18] MEDS ORDERED: LABETALOL HCL 5 MG/ML 20 ML MDV IVP PRN (10:21)
[2018-09-18] MEDS ORDERED: NALOXONE HCL 0.4 MG/ML INJ IVP PRN (10:21)
[2018-09-18] MEDS ORDERED: ACETAMINOPHEN 500 MG TAB PO PRN (10:21)
[2018-09-18] MEDS ORDERED: METOCLOPRAMIDE 10 MG/2 ML VIAL IVP PRN (10:21)
[2018-09-18] MEDS ORDERED: ALBUTEROL 3 ML DEYVIAL IH PRN (10:21)
[2018-09-18] MEDS ORDERED: oxyCODONE IR 5 MG TAB PO PRN (10:21)
[2018-09-18] MEDS ORDERED: MEPERIDINE 25 MG/0.5 ML AMP IVP PRN (10:21)
[2018-09-18] MEDS ORDERED: DIAZEPAM 5 MG/ML 1 ML SYR IVP PRN (10:21)
[2018-09-18] MEDS ORDERED: PHENYLEPHRINE HCL 100 MCG/ML SYR IVP PRN (10:21)
[2018-09-18] MEDS ORDERED: PROMETHAZINE HCL 25 MG/ML INJ IVP PRN (10:21)
[2018-09-18] MEDS ORDERED: LR 500 ML IV PRN (10:21)
[2018-09-18] MEDS ORDERED: ONDANSETRON 4 MG/2 ML VIAL IVP PRN (10:21)
[2018-09-18] MEDS ORDERED: VANCOMYCIN 1 GM VIAL ONE (10:40)
[2018-09-18] MEDS ORDERED: ONDANSETRON 4 MG/2 ML VIAL ONE (10:49)
[2018-09-18] MEDS ORDERED: KETOROLAC 30 MG/1 ML SDV ONE (10:50)
[2018-09-18] MEDS ORDERED: SUGAMMADEX SODIUM 200 MG/2 ML VIAL IVP ONE (10:50)
[2018-09-18] MEDS ORDERED: BACITRACIN ZINC 0.5 OZ OINTTUBE TP ONE (11:00)
[2018-09-18] MEDS ORDERED: CALCIUM CHLORIDE 1 GM/10 ML INJ ONE (11:07)
--- NOTE | 2018-09-18 11:53 | GOP ---
[f rep st] OPERATIVE REPORT DATE OF OPERATION: 09/18/2018 SURGEON: Yan Nolasco MD NEUROSURGEON: Yan Nolasco MD CAMERA SYSTEMS ENGINEER: None. ANESTHESIA: General endotracheal. PREOPERATIVE DIAGNOSIS: Recurring thoracolumbar complex deep postoperative wound infection. POSTOPERATIVE DIAGNOSIS: Recurring thoracolumbar complex deep postoperative wound infection. PROCEDURE PERFORMED: Redo incision and drainage of infected wound and placement of Baldo-Lord daron in. Use of intraoperative microscopy. Identification and repair of spinal leak not requiring chadd ctomy FINDINGS: ESTIMATED BLOOD LOSS: 100 cc. INDICATIONS: The patient is a 63-year-old woman with a recent complex thoracolumbar decompression an d fusion and stabilization complicated by a wound infection, which was washed out 2 days ago and now presents for washout again due to ongoing pain and drainage from her incision. DESCRIPTION OF PROCEDURE: After informed consent was obtained, the patient was taken to the operatin g room and placed in the prone position on the Baldo table. The thoracolumbosacral areas were prep ped and draped in sterile fashion and the prior wound carefully opened all the way down to the instru mentation in spinal area, which was copiously irrigated with antibiotic irrigation with the pulse lav age. Upon removing all the irrigation fluid, there was a small tear in the dura from what appeared t o be a piece of sharp allograft. This was removed and a single neural 4-0 Nurolon suture placed with good closure. A piece of DuraGen was placed over this and a piece of Gelfoam over that. The wound was further copiously irrigated and debrided of any infected looking material. A drain was placed, a nd the wound was closed in a layered fashion using interrupted Vicryl sutures, followed by a running Prolene on the skin. COMPLICATIONS: None. DISPOSITION: The patient is currently in the process of being repositioned for extubation. /[id number]/MODL
[2018-09-18] MEDS ORDERED: HYDROCODONE/APAP 5/325 TAB ONE (12:02)
--- NOTE | 2018-09-18 12:02 | POSTANESTH ---
Post Anesthetic Evaluation Cardiovascular Status: Normal, Stable Respiratory Status: Normal, Stable Level of Consciousness/Mental Status: Can Participate in Eval Pain Control: Adequate, Prn Tx Ordered Nausea/Vomiting Control: Adequate, Prn Tx Ordered Complications Possibly Related to Anesthesia: None Noted
--- NOTE | 2018-09-18 12:03 | POSTOPPROG ---
Post Op Note Date of Operation: 09/18/18 Surgeon: Yan Nolasco Contractor General Engineering: none Anesthesiologist: Ha richards MD Anesthesia: GET(General Endotracheal) Pre-op Diagnosis: Persistent wound infection with drainage Post-op Diagnosis: wound infection. Durotomy Indication: continued wound drainage after initial I&D on 09/15/18 Procedure: Thoracolumbar wound I&D Findings: pus Inf/Abcess present in the surg proc area at time of surgery?: Yes Depth: Deep Incisional (Fascial) EBL: Minimal Complications: Durotomy Drains: Baldo Lord (to dimple suction) Specimen(s): none
--- NOTE | 2018-09-18 12:07 | ASMTCMCOM ---
CM Note CM Note Notes: Pt to have another washout today. Pt to d/c with IV Vanco continuous, referral sent to [facility] and [facility] can accept pt. kristyn will secure the HC, informed Deja with [facility] that prior to the original spinal fusion pt was set up with [facility] by MD office so maybe they can do the HC, Deja to discuss with Hayley at [facility]. OT rec home/HHC, PT eval is pending and may not happen today due to pt having another washout. CM to follow. D/c plan of care: Home with IV antibiotics provided by [facility] and HC Date Signed: 09/18/2018 12:06 PM Electronically Signed By:RBANDY Phillip
[2018-09-18] MEDS: fentaNYL 100 MCG/2 ML INJ IVP PRN ×3 (12:10→12:39)
[2018-09-18] MEDS: HYDROCODONE/APAP 5/325 TAB PO PRN (12:10)
[2018-09-18] MEDS ORDERED: HYDROmorphONE/DILAUDID 2 MG/ML INJ ONE (12:20)
[2018-09-18] MEDS: HYDROmorphONE/DILAUDID 2 MG/ML INJ IVP PRN ×2 (12:21→12:39)
--- NOTE | 2018-09-18 12:59 | SOAPPROG ---
SOAP Progress Note Assessment/Plan: Assesment: Status post wound I&D Doing well in PACU Plan: CPM in PACU transfer to floor per protocol HOB flat x 48 hrs ROLF to dimple suction Subjective: Awake, conversant, but falls asleep once she stops talking.Pain well controlled denies numbness, tingling or weakness Objective: Vital Signs Temp Pulse Resp BP Pulse Ox 36.3 C 87 13 131/78 H 97 09/18/18 12:45 09/18/18 10:20 09/18/18 12:01 09/18/18 12:01 09/18/18 12:45 Microbiology 09/16/18 06:50 Gram Stain - Final Other - Eswab 09/16/18 06:50 Gram Stain - Final Other - Eswab 09/16/18 06:50 Gram Stain - Final Other - Eswab 09/15/18 19:21 Blood Culture - Final Blood MRSA Blood Panel (PCR) - Final MRSA 09/15/18 19:17 Blood Culture - Final Blood MRSA 09/15/18 22:45 Urine Culture - Final Urine,Clean Catch Escherichia Coli Staphylococcus Sp Coag Neg Two [place] Types Laboratory Results 09/18/18 03:00 09/18/18 07:50 09/17/18 09/18/18 09/19/18 05:59 05:59 05:59 Intake Total 6686 108 9153 Output Total 1 2480 130 Balance 1249 -1680 2490 Neuro: RICE to command, sens +LT ROLF: 5ml in bulb Vitals: HR: 78 O2: 94% nasal cannula BP: 109/72 ICD10 Worksheet Patient Problems: Problems Problem Status Onset Arthrodesis status Acute Post op infection Acute Fusion of spine of thoracolumbar region Acute MRSA (methicillin resistant Staphylococcus aureus) Acute 08/02/16
[2018-09-18] MEDS: VANCOMYCIN 750 MG in D5W 150 ML IV SCH (15:44)
--- NOTE | 2018-09-18 16:39 | HOSPPROG ---
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 dilaudid PO # durotomy - laying flat x 48 hours # R leg neuropathic pain - cont gabapentin # hypotension - this is approx baseline for her # hypoNa - stable, follow again tomorrow Subjective: s/p repeat washout and durotomy repair today; now laying flat Objective: Vital Signs Temp Pulse Resp BP Pulse Ox 36.7 C 76 14 107/74 96 09/18/18 15:15 09/18/18 15:15 09/18/18 15:15 09/18/18 15:15 09/18/18 15:15 Microbiology 09/16/18 06:50 Gram Stain - Final Other - Eswab 09/16/18 06:50 Gram Stain - Final Other - Eswab 09/16/18 06:50 Gram Stain - Final Other - Eswab 09/15/18 19:21 Blood Culture - Final Blood MRSA Blood Panel (PCR) - Final MRSA 09/15/18 19:17 Blood Culture - Final Blood MRSA 09/15/18 22:45 Urine Culture - Final Urine,Clean Catch Escherichia Coli Staphylococcus Sp Coag Neg Two [place] Types Laboratory Results 09/18/18 03:00 09/18/18 07:50 09/17/18 09/18/18 09/19/18 05:59 05:59 05:59 Intake Total 0833 240 6301 Output Total 1 2480 130 Balance 1249 -1680 2490 high risk with MRSA bacteremia - Physical Exam Constitutional: uncomfortable Eyes: anicteric sclera Ears, Nose, Mouth, Throat: hearing normal Cardiovascular: No edema Respiratory: no respiratory distress Gastrointestinal: No distension Genitourinary: No stuart in urethra Skin: warm Neurologic: AAOx3 Psychiatric: not anxious ICD10 Worksheet Patient Problems: Problems Problem Status Onset MRSA (methicillin resistant Staphylococcus aureus) Acute 08/02/16 Fusion of spine of thoracolumbar region Acute Post op infection Acute Arthrodesis status Acute
[2018-09-18] MEDS: HYDROmorphONE/DILAUDID 2 MG TAB PO PRN ×3 (17:17→23:42)
[2018-09-19] MEDS: GABAPENTIN 300 MG CAP PO SCH ×4 (05:59→20:41)
[2018-09-19] MEDS: HYDROmorphONE/DILAUDID 2 MG TAB PO PRN ×5 (05:59→20:39)
[2018-09-19] MEDS: ACETAMINOPHEN 500 MG TAB PO SCH ×3 (05:59→20:40)
[2018-09-19 06:20] LABS: PLATELET COUNT 431 10^3/uL (150-400)
[2018-09-19] MEDS: FAMOTIDINE 20 MG TAB PO SCH ×2 (08:45→20:39)
[2018-09-19] MEDS: METHOCARBAMOL 750 MG TAB PO PRN ×3 (08:46→20:39)
[2018-09-19] MEDS: SENNOSIDES/DOCUSATE SODIUM TAB PO SCH ×2 (08:46→20:40)
[2018-09-19] MEDS: VANCOMYCIN HCL/NORMAL SALINE 250 ML IV SCH ×2 (08:55→20:41)
--- NOTE | 2018-09-19 09:12 | HOSPPROG ---
Hospitalist Progress Note Assessment/Plan: # MRSA post-op infection with bacteremia - s/p debridement x 2, operative cultures with MRSA -IV Vancomycin - +bld cultures 09/18 - echo with no vegetations (printed report in chart; not in [employer]). May warrant ADRIANA if cultures don't clear -exchange PICC line once blood cxs clear #Urinary retention: >1000mL. Sierra placed #Neurpathic hogue: better with increased PO Dilaudid -increase Gabapentin #Durotomy - laying flat x 48 hours, 12pm Friday #ABLA: 2 units RBCs 09/18 #Hypotension -resolved # hypoNa -resolved #Diet: reg #DVT ppx: Lovenox #Disp: inpatient admission with ongoing bacteremia. IV abx and Dilaudid Subjective: pain 10 currently. Shooting pain down right leg Objective: Vital Signs Temp Pulse Resp BP Pulse Ox 36.8 C 76 18 119/74 97 09/19/18 08:00 09/19/18 08:00 09/19/18 08:00 09/19/18 08:00 09/19/18 08:00 Microbiology 09/18/18 09:05 Blood Panel (PCR) - Final Blood MRSA 09/16/18 06:50 Gram Stain - Final Other - Eswab 09/16/18 06:50 Gram Stain - Final Other - Eswab 09/16/18 06:50 Gram Stain - Final Other - Eswab 09/15/18 19:21 Blood Culture - Final Blood MRSA Blood Panel (PCR) - Final MRSA 09/15/18 19:17 Blood Culture - Final Blood MRSA Laboratory Results 09/19/18 06:00 09/19/18 06:00 09/18/18 09/19/18 09/20/18 05:59 05:59 05:59 Intake Total 800 3945 450 Output Total 2480 1910 195 Balance -1680 2035 255 - Time Spent With Patient Time Spent with Patient: greater than 35 minutes Time Spent with Patient: Greater than 35 minutes spent on this patients care, greater than 50% of time spent counseling, educating, and coordinating care regarding the above mentioned plan. - Physical Exam Constitutional: other (pale) Eyes: pale conjunctiva Ears, Nose, Mouth, Throat: moist mucous membranes Cardiovascular: regular rate and rhythym Respiratory: no respiratory distress (anteriorly) Gastrointestinal: normoactive bowel sounds Skin: warm, No rash Musculoskeletal: other (ROLF drain in place) Neurologic: AAOx3 Psychiatric: interacting appropriately ICD10 Worksheet Patient Problems: Problems Problem Status Onset Arthrodesis status Acute Post op infection Acute Fusion of spine of thoracolumbar region Acute MRSA (methicillin resistant Staphylococcus aureus) Acute 08/02/16
--- NOTE | 2018-09-19 09:55 | SOAPPROG ---
SOAP Progress Note Assessment/Plan: Assesment: POD #1 Status post SECOND wound I&D 09/18. First I&D was on 09/15 for MRSA bacteremia. ID following and currently on Vanco. Pain controlled this AM, but had flare up of bilateral posterior thigh pain again overnight again. Dilaudid working well for pain control. Required straight cath overnight and now has 1000ml in bladder this AM. Will place stuart. No new leg weakness or tingling. Plan: Place stuart this AM for bladder scan of 1000ml and pt unable to void while flat HOB flat x 48 hrs - until 1199 ROLF to dimple suction Lovenox starts today. 09/19/18 09:51 09/19/18 09:57 09/19/18 09:58 09/19/18 09:59 Subjective: Lying in bed, flat. Reports inability to urinate due to flat position. Required straight cath overnight. Denies leg weakness or tingling. Had one episode of severe sciatica overnight - better this AM. Objective: Vital Signs Temp Pulse Resp BP Pulse Ox 36.8 C 76 18 119/74 97 09/19/18 08:00 09/19/18 08:00 09/19/18 08:00 09/19/18 08:00 09/19/18 08:00 Microbiology 09/16/18 06:50 Gram Stain - Final Other - Eswab 09/16/18 06:50 Gram Stain - Final Other - Eswab 09/16/18 06:50 Gram Stain - Final Other - Eswab 09/18/18 09:05 Blood Panel (PCR) - Final Blood MRSA 09/15/18 19:21 Blood Culture - Final Blood MRSA Blood Panel (PCR) - Final MRSA 09/15/18 19:17 Blood Culture - Final Blood MRSA Laboratory Results 09/19/18 06:00 09/19/18 06:00 09/18/18 09/19/18 09/20/18 05:59 05:59 05:59 Intake Total 800 3945 450 Output Total 2480 0 195 Balance -0 2034 255 Neuro: RICE, sens +LT 5/5 bilateral LE Dressing dry, no drainage from incison ROLF: to dimple suction with 195ml since surgery ICD10 Worksheet Patient Problems: Problems Problem Status Onset Arthrodesis status Acute Post op infection Acute Fusion of spine of thoracolumbar region Acute MRSA (methicillin resistant Staphylococcus aureus) Acute 08/02/16
[2018-09-19] MEDS: HYDROmorphONE/DILAUDID 6 MG/30 ML PCA IV PRN (10:47)
[2018-09-19] MEDS: ENOXAPARIN 40 MG/0.4 ML SYR SC SCH (10:50)
[2018-09-19] MEDS: BACITRACIN/POLYMYXIN B SULFATE 28.3 GM TUBE TP SCH ×2 (12:02→20:12)
--- NOTE | 2018-09-19 15:40 | PCMIDPN ---
Assessment/Plan: Assessment: MRSA bacteremia from a postoperative lumbar deep infection site with hardware. Patient is status post washout yesterday. She continues on vancomycin but has a trough of 8.5. Will increase vancomycin dose appropriately. Will recheck blood cultures tomorrow. Echocardiogram without evidence of vegetation on aortic, mitral or tricuspid valves. Plan: 1. Continue IV vancomycin at increased dose. 2. Repeat blood cultures tomorrow morning. 3. Follow clinical course. 4. Follow up on culture data. 09/19/18 15:37 09/19/18 15:38 Subjective: Patient is resting in her hospital bed. She is having a mild return of sciatic pain in her legs. No fevers or chills. Objective: Vancomycin # 4 Vital Signs Temp Pulse Resp BP Pulse Ox 36.9 C 76 16 118/74 96 09/19/18 14:29 09/19/18 14:29 09/19/18 14:29 09/19/18 14:29 09/19/18 14:29 Microbiology 09/18/18 09:05 Blood Panel (PCR) - Final Blood MRSA 09/16/18 06:50 Gram Stain - Final Other - Eswab 09/16/18 06:50 Gram Stain - Final Other - Eswab 09/16/18 06:50 Gram Stain - Final Other - Eswab Laboratory Results 09/19/18 06:00 09/19/18 06:00 09/18/18 09/19/18 09/20/18 05:59 05:59 05:59 Intake Total 800 3945 1750 Output Total 2480 1910 1395 Balance -1680 2035 355 ESR 26 MM/HR (0-30) 09/15/18 22:10 C-Reactive Protein 220.9 mg/L (<10.0) H 09/15/18 22:10 - Physical Exam General Appearance: WD/WN, alert, no apparent distress, non-toxic Respiratory: lungs clear, normal breath sounds, No respiratory distress Cardiac/Chest: regular rate, rhythm, No tachycardia Skin: normal color, warm/dry, No rash Neuro/Psych: alert, normal mood/affect, oriented x 3 ICD10 Worksheet Patient Problems: Problems Problem Status Onset Arthrodesis status Acute Post op infection Acute Fusion of spine of thoracolumbar region Acute MRSA (methicillin resistant Staphylococcus aureus) Acute 08/02/16
[2018-09-19] MEDS: POLYETHYLENE GLYCOL 3350 17 GM PKT PO PRN (17:50)
[2018-09-19] MEDS ORDERED: VANCOMYCIN 1.25 GM in D5W 250 ML IV SCH (21:00)
[2018-09-20] MEDS: HYDROmorphONE/DILAUDID 2 MG TAB PO PRN ×7 (02:10→22:05)
[2018-09-20] MEDS: GABAPENTIN 300 MG CAP PO SCH ×3 (06:03→21:56)
[2018-09-20] MEDS: ACETAMINOPHEN 500 MG TAB PO SCH ×3 (06:04→21:56)
[2018-09-20] MEDS: MAGNESIUM HYDROXIDE 30 ML UDCUP PO PRN (08:16)
[2018-09-20] MEDS: METHOCARBAMOL 750 MG TAB PO PRN ×2 (08:16→21:56)
[2018-09-20] MEDS: FAMOTIDINE 20 MG TAB PO SCH ×2 (08:16→21:56)
[2018-09-20] MEDS: ENOXAPARIN 40 MG/0.4 ML SYR SC SCH (08:16)
[2018-09-20] MEDS: SENNOSIDES/DOCUSATE SODIUM TAB PO SCH ×2 (08:16→21:55)
[2018-09-20] MEDS: BACITRACIN/POLYMYXIN B SULFATE 28.3 GM TUBE TP SCH ×2 (08:17→20:34)
--- NOTE | 2018-09-20 09:19 | SOAPPROG ---
SOAP Progress Note Assessment/Plan: Assesment: POD #2 Status post SECOND wound I&D 09/18. First I&D was on 09/15 for MRSA bacteremia. ID following and currently on Vanco. Pain much better this AM. Dilaudid working well for pain control. Sierra for urinary retention No MORA No new leg weakness or tingling. Plan: OK to raise HOB up to 30 degrees starting at 1200, monitor for 1 hr and if doing well raise HOB to 45 degrees x 1 hr and if doing well then ok to ambulate w assist. ROLF to dimple suction Continue Lovenox ABx per ID 09/20/18 09:18 Subjective: Lying flat in bed. Doing well today. She states her pain is "much better" today. No further sciatica or severe back pain. Denies numbness tingling or weakness. Objective: Vital Signs Temp Pulse Resp BP Pulse Ox 36.6 C 71 16 123/74 H 90 L 09/20/18 08:00 09/20/18 08:00 09/20/18 08:00 09/20/18 08:00 09/20/18 08:00 Microbiology 09/18/18 09:05 Blood Panel (PCR) - Final Blood MRSA 09/16/18 06:50 Gram Stain - Final Other - Eswab 09/16/18 06:50 Gram Stain - Final Other - Eswab 09/16/18 06:50 Gram Stain - Final Other - Eswab Laboratory Results 09/19/18 06:00 09/19/18 06:00 09/19/18 09/20/18 09/21/18 05:59 05:59 05:59 Intake Total 3945 4750 Output Total 1910 3140 Balance 2035 1610 Neuro: RICE, Sens +LT 5/5 bilateral LE Incision: CDI, no drainage ROLF: serosanguinous 10 ml in bulb this AM ICD10 Worksheet Patient Problems: Problems Problem Status Onset Arthrodesis status Acute Post op infection Acute Fusion of spine of thoracolumbar region Acute MRSA (methicillin resistant Staphylococcus aureus) Acute 08/02/16
[2018-09-20] MEDS: VANCOMYCIN HCL/NORMAL SALINE 250 ML IV SCH ×2 (09:32→21:56)
--- NOTE | 2018-09-20 10:28 | ECHO ---
[email or web address] [address] [address] Main: [phone] Echocardiography Examination Transthoracic Name: INOCENCIO ROLLINS MR#: [id number] Study Date: 09/16/2018 Study Time: 02:21 PM Date of : 1955 Age: 63 year(s) Height: 162.6 cm (64 in.) Weight: 49.9 kg (110 lb.) BSA: 1.52 m2 Gender: Female Examination: Echo Contrast: Image Quality: Adequate Rhythm: Heart Rate: BP: 88 mmHg/58 mmHg Indication: Murmur/infection/R/O vegetation Procedure Staff Referring Physician: Mold Stamper: Farzana Jauregui [facility] Reading Physician: Sarwat Tejada MD Requesting Provider: Indication: Murmur/infection/R/O vegetation Measurements Chambers AV/MV Label Value Normal Value Label Value Normal Value EF lower range (%) 70 % AR PHT 0.46 s EF upper range (%) 75 % AR PHT 457 ms IVSd, 2D 0.8 cm (0.6cm - 1.1cm) AR Vena contracta 0.3 cm LVDd, 2D 4.3 cm (3.9cm - 5.3cm) AR Vmax 3.26 m/s LVDs, 2D 2.6 cm (2.1cm - 4cm) AV PGmax 6 mmHg LVEF, 2D 69 % (54% - 74%) AV Vmax, Caliper 1.23 m/s LVEF, MOD2 64 % (55% - 70%) DAVID (continuity eq. 2.6 cm2 LVEF, MOD4 67 % (55% - 70%) Vmax) LVOT PGmax 5 mmHg MV A Vmax 0.36 m/s LVOT Vmax 1.11 m/s (0.7m/s - 1.1m/s) MV DT 141 ms LVOTd 1.9 cm (1.8cm - 2cm) MV E' lateral 0.12 m/s LVPWd, 2D 0.6 cm MV E' mean 0.12 m/s RVDd, 2D 3.3 cm (1.9cm - 3.8cm) MV E' septal 0.12 m/s TAPSE 2 cm MV E Vmax 0.63 m/s LA Area, A2C 20.9 cm2 (0cm2 - 20cm2) MV E/A 1.75 LA Volume, A2C 58 ml (22ml - 52ml) MV E/E' lateral 5.1 LA Volume, A4C 56 ml (22ml - 52ml) MV E/E' mean 5.25 LA Volume, BP 57 ml (22ml - 52ml) MV E/E' septal 5.2 (0.45 - 1.25) LAD Index, 2D 2.04 cm/m2 TV/PV LADs, 2D 3.1 cm (2.7cm - 3.8cm) Label Value Normal Value Patient: INOCENCIO ROLLINS Study Date: 09/16/2018 Page 1 of 3 02:21 PM LAESV index, MOD4 36.8 ml/m2 RA Pressure 5 mmHg Additional Vessels RVSP 30 mmHg Label Value Normal Value TR Pmax 25 mmHg AoAsc 3.8 cm TR Vmax 2.5 m/s AoRoot, 2D 3.9 cm (1.4cm - 2.6cm) PV PGmax 3 mmHg PV Vmax, Caliper 0.87 m/s (0.6m/s - 0.9m/s) Conclusions There is no evidence of endocarditis on the basis of this study. If endocarditis is strongly suspected a ADRIANA could be considered . The aortic, mitral and tricuspid valves are well visualized and a vegetation is not identified on those 3 valves. The pulmonic valve is least likely to be associated with endocarditis but is not well seen. Left Ventricle: Left ventricle is normal in size. EF range is estimated at 70 % - 75 %. There is no regional wall motion abnormalities. Left ventricular diastolic function parameters are normal. Right Ventricle: Normal size right ventricle. Right ventricular wall thickness is normal. Left Atrium: The left atirum is borderline dilated. The interatrial septal wall appears slightly aneurysmal bowing towards the right side. Mitral Valve: Mild mitral regurgitation. Aortic Valve: Mild aortic regurgitation is present. Tricuspid Valve: Mild tricuspid regurgitation. Pulmonic Valve: Pulmonic valve is poorly visualized. Pulmonic leaflets exhibit normal cuspal separation. Findings Left Ventricle: Left ventricle is normal in size. Normal global systolic left ventricular function. The ejection fraction, measured by MOD4, is 67 %. EF range is estimated at 70 % - 75 %. Left ventricle wall thickness is normal. There is no regional wall motion abnormalities. Left ventricular diastolic function parameters are normal. IVS: The septum is intact. Right Ventricle: Normal size right ventricle. Right ventricular wall thickness is normal. Right ventricular systolic function is normal. Left Atrium: The left atirum is borderline dilated. The interatrial septal wall appears slightly aneurysmal bowing towards the right side. IAS: Normal appearing atrial septum. Patient: INOCENCIO ROLLINS Study Date: 09/16/2018 Page 2 of 3 02:21 PM Right Atrium: The right atrium is normal in size. Mitral Valve: Normal . Mild mitral regurgitation. No mitral valve stenosis. Aortic Valve: Aortic leaflets exhibit normal cuspal separation. Mild aortic regurgitation is present. There is no aortic stenosis. Tricuspid Valve: Tricuspid valve leaflets are normal in appearance and function. Mild tricuspid regurgitation. No tricuspid valve stenosis. Right Ventricular systolic pressure is measured at 30 mmHg. Pulmonary artery pressure normal. Pulmonic Valve: Pulmonic valve is poorly visualized. Pulmonic leaflets exhibit normal cuspal separation. Trivial pulmonic valve regurgitation is present. There is no pulmonic valve stenosis. Aorta: The aorta is normal. Mild aortic root dilatation. The aortic root size in 2D measures 3.9 cm. The ascending aorta measures 3.8 cm. Aorta Measurements AoRoot, 2D is 3.9 cm. Pulmonary Artery: The pulmonary artery morphology appears normal. IVC: The inferior vena cava is normal in size and course. Pericardium: No pericardial effusion. No pleural effusion present. Exam Details Procedure Ordered: Echo Procedure Status: Routine study Image Quality: Adequate Facility Location: Cardiac Echo 1 (No Signature Object) Patient: INOCENCIO ROLLINS Study Date: 09/16/2018 Page 3 of 3 02:21 PM [id number]
--- NOTE | 2018-09-20 15:34 | HOSPPROG ---
Hospitalist Progress Note Assessment/Plan: # MRSA post-op infection with bacteremia - s/p debridement x 2, operative cultures with MRSA -Vanc increased yesterday, repeat blood cultures today - echo with no vegetations (printed report in chart; [facility] -exchange PICC line once blood cxs clear #Urinary retention: >1000mL. Stuart placed #Pain: improved with increased Gabapentin. Using lower-dose PO Dilaudid. 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 IV abx and Dilaudid bedside and questions answered. Subjective: "had a good night" Pain better-controlled Objective: Vital Signs Temp Pulse Resp BP Pulse Ox 36.1 C 77 19 126/84 H 92 09/20/18 11:16 09/20/18 11:16 09/20/18 11:16 09/20/18 11:16 09/20/18 11:16 Microbiology 09/18/18 09:05 Blood Panel (PCR) - Final Blood MRSA 09/16/18 06:50 Gram Stain - Final Other - Eswab 09/16/18 06:50 Gram Stain - Final Other - Eswab 09/16/18 06:50 Gram Stain - Final Other - Eswab Laboratory Results 09/19/18 06:00 09/19/18 06:00 09/19/18 09/20/18 09/21/18 05:59 05:59 05:59 Intake Total 3945 4750 Output Total 1910 3140 Balance 2035 1610 - Time Spent With Patient Time Spent with Patient: greater than 35 minutes Time Spent with Patient: Greater than 35 minutes spent on this patients care, greater than 50% of time spent counseling, educating, and coordinating care regarding the above mentioned plan. - Physical Exam Constitutional: no apparent distress, other (pale) Eyes: pale conjunctiva Ears, Nose, Mouth, Throat: moist mucous membranes Cardiovascular: regular rate and rhythym Respiratory: no respiratory distress Gastrointestinal: normoactive bowel sounds Genitourinary: stuart in urethra (yellow urine) Skin: warm Musculoskeletal: full muscle strength, other (ROLF with sanginous drainage) Neurologic: AAOx3 Psychiatric: interacting appropriately ICD10 Worksheet Patient Problems: Problems Problem Status Onset Arthrodesis status Acute Post op infection Acute Fusion of spine of thoracolumbar region Acute MRSA (methicillin resistant Staphylococcus aureus) Acute 08/02/16
--- NOTE | 2018-09-20 17:10 | PCMIDPN ---
Assessment/Plan: Assessment: MRSA bacteremia from a postoperative lumbar deep infection site with hardware. Patient is status post washout on Friday. She continues on vancomycin at prior dose and trough was 12.4. Did not increase dose yesterday. Will allow to continue to collect. Echocardiogram without evidence of vegetation on aortic, mitral or tricuspid valves. Plan: 1. Continue IV vancomycin at 1 g dose. 2. Follow repeat blood cultures. 3. Follow clinical course. Subjective: Patient doing well today. Reduced back pain. No fevers or chills. Overall feels better. Tolerating antibiotic without issue. Objective: Vancomycin # 5 Vital Signs Temp Pulse Resp BP Pulse Ox 37.3 C 78 19 121/80 H 92 09/20/18 15:42 09/20/18 15:42 09/20/18 15:42 09/20/18 15:42 09/20/18 15:42 Microbiology 09/18/18 09:05 Blood Panel (PCR) - Final Blood MRSA Laboratory Results 09/19/18 06:00 09/19/18 06:00 09/19/18 09/20/18 09/21/18 05:59 05:59 05:59 Intake Total 3945 4750 Output Total 1910 3140 570 Balance 2035 1610 -570 ESR 26 MM/HR (0-30) 09/15/18 22:10 C-Reactive Protein 220.9 mg/L (<10.0) H 09/15/18 22:10 - Physical Exam General Appearance: WD/WN, alert, no apparent distress, non-toxic Respiratory: lungs clear, normal breath sounds, No respiratory distress Cardiac/Chest: regular rate, rhythm, No tachycardia Skin: normal color, warm/dry, No rash Neuro/Psych: alert, normal mood/affect, oriented x 3 ICD10 Worksheet Patient Problems: Problems Problem Status Onset Arthrodesis status Acute Post op infection Acute Fusion of spine of thoracolumbar region Acute MRSA (methicillin resistant Staphylococcus aureus) Acute 08/02/16
[2018-09-21] MEDS: HYDROmorphONE/DILAUDID 2 MG TAB PO PRN ×6 (01:13→22:31)
[2018-09-21] MEDS: METHOCARBAMOL 750 MG TAB PO PRN ×3 (04:35→17:01)
[2018-09-21] MEDS: GABAPENTIN 300 MG CAP PO SCH ×3 (06:19→22:24)
[2018-09-21] MEDS: ACETAMINOPHEN 500 MG TAB PO SCH ×3 (06:20→22:23)
--- NOTE | 2018-09-21 07:28 | SOAPPROG ---
SOAP Progress Note Assessment/Plan: Assessment: 63 yo F sp T11-L5 fusion and wound washout on 09/15/18 and 09/18/18 for MRSA wound infection Plan: neuro: stable and doing well overall on vanco for MRSA wound infection ROLF x 1 will keep until drainage is minimal constipation, BM on 09/20/17 PT/OT scd/raj/lovenox for dvt prophylaxis please call with neuro changes discussed with Dr Kuo 09/21/18 07:25 Subjective: + back pain improving, no leg pain, no weakness. no headaches. Objective: Vital Signs Temp Pulse Resp BP Pulse Ox 37.0 C 80 16 117/75 90 L 09/20/18 23:06 09/20/18 23:06 09/20/18 23:06 09/20/18 23:06 09/20/18 23:06 Microbiology 09/18/18 09:05 Blood Panel (PCR) - Final Blood MRSA Laboratory Results 09/19/18 06:00 09/19/18 06:00 09/20/18 09/21/18 09/22/18 05:59 05:59 05:59 Intake Total 4750 750 Output Total 3140 640 900 Balance 1610 110 -900 AAOx4, +FC PERRL, EOMI, no facial droop 5/5 + light touch C/D/I ICD10 Worksheet Patient Problems: Problems Problem Status Onset Arthrodesis status Acute Post op infection Acute Fusion of spine of thoracolumbar region Acute MRSA (methicillin resistant Staphylococcus aureus) Acute 08/02/16
[2018-09-21] MEDS: SENNOSIDES/DOCUSATE SODIUM TAB PO SCH ×2 (08:26→22:24)
[2018-09-21] MEDS: FAMOTIDINE 20 MG TAB PO SCH ×2 (08:26→22:23)
[2018-09-21] MEDS: BACITRACIN/POLYMYXIN B SULFATE 28.3 GM TUBE TP SCH ×2 (08:37→22:24)
[2018-09-21] MEDS: VANCOMYCIN HCL/NORMAL SALINE 250 ML IV SCH ×2 (08:55→22:21)
[2018-09-21] MEDS: HYDROmorphONE/DILAUDID 1 MG/ML INJ IVP PRN (09:43)
[2018-09-21] MEDS: ENOXAPARIN 40 MG/0.4 ML SYR SC SCH (09:54)
[2018-09-21] MEDS ORDERED: NALOXONE HCL 0.4 MG/ML INJ IVP PRN ×2 (10:14→17:48)
[2018-09-21] MEDS: HYDROmorphONE/DILAUDID 6 MG/30 ML PCA IV PRN (10:39)
[2018-09-21] MEDS ORDERED: GABAPENTIN 300 MG CAP PO SCH (12:12)
--- NOTE | 2018-09-21 14:39 | PCMIDPN ---
Assessment/Plan: Assessment/Plan: * MRSA bacteremia secondary to MRSA postoperative back infection status post incision and drainage x2: Plans for repeat washout today to assess for ongoing CSF leak given worsening leg pain and headache when upright. Continue vancomycin at current dosing with likelihood will slowly accumulate with goal trough approximately 15. Continue to follow creatinine on vancomycin therapy. Repeat blood cultures from 09/20/2018 are no growth to date. Will need PICC line change once bacteremia has been documented to have cleared. 09/21/18 14:36 Subjective: Patient with worsening leg pain and headache after being upright. Plans for repeat incision and drainage with assessment for ongoing CSF leak this afternoon by Neurosurgery. Objective: Vital Signs Temp Pulse Resp BP Pulse Ox 37.8 C 97 18 122/72 H 93 09/21/18 13:18 09/21/18 13:18 09/21/18 13:18 09/21/18 13:18 09/21/18 13:18 Microbiology 09/18/18 09:05 Blood Panel (PCR) - Final Blood MRSA Laboratory Results 09/19/18 06:00 09/20/18 09/21/18 09/22/18 05:59 05:59 05:59 Intake Total 4750 750 300 Output Total 3140 640 960 Balance 1610 110 -660 ESR 26 MM/HR (0-30) 09/15/18 22:10 C-Reactive Protein 220.9 mg/L (<10.0) H 09/15/18 22:10 Vancomycin # 6 Blood cultures x2 09/20/2018 no growth to date Laboratory Tests 09/20/18 08:05 Vancomycin Trough 12.4 - Physical Exam General Appearance: alert, no apparent distress, non-toxic EENT: No scleral icterus, No conjunctival petechiae Respiratory: lungs clear, No respiratory distress Cardiac/Chest: regular rate, rhythm, No systolic murmur Extremities: No inflammation Abdomen: non-tender, No distended Back: other (ROLF with serosanguineous output) Neuro/Psych: No motor weakness ICD10 Worksheet Patient Problems: Problems Problem Status Onset Arthrodesis status Acute Post op infection Acute Fusion of spine of thoracolumbar region Acute MRSA (methicillin resistant Staphylococcus aureus) Acute 08/02/16
[2018-09-21] MEDS ORDERED: CHLORHEXIDINE GLUC HIBICLENS 118 ML BTL TP ONE (14:58)
[2018-09-21] MEDS ORDERED: BUPIVACAINE 0.25% 30 ML SDV ONE ×2 (14:58→15:06)
[2018-09-21] MEDS ORDERED: AVITENE POWDER 1 GM JAR TP ONE (14:58)
[2018-09-21] MEDS ORDERED: THROMBIN (BOVINE) 5,000 UNIT VIAL TP ONE (14:58)
[2018-09-21] MEDS ORDERED: BACITRACIN 50,000 UNITS/10 ML SYR IRR ONE (14:59)
[2018-09-21] MEDS ORDERED: BUPIVACAINE/EPI 0.25% 10 ML SDV ONE (14:59)
[2018-09-21] MEDS ORDERED: EPINEPHrine 1 MG/ML INJ ONE (15:06)
[2018-09-21] MEDS ORDERED: HYDROmorphONE/DILAUDID 2 MG/ML INJ ONE ×3 (15:42→19:08)
[2018-09-21] MEDS ORDERED: HYDROmorphONE/DILAUDID 2 MG/ML INJ IVP PRN ×2 (16:00→17:48)
[2018-09-21] MEDS ORDERED: HYDROmorphONE/DILAUDID 2 MG/ML INJ IVP ONE (16:30)
[2018-09-21] MEDS ORDERED: HYDROmorphONE/DILAUDID 2 MG TAB ONE (16:56)
[2018-09-21] MEDS ORDERED: METHOCARBAMOL 750 MG TAB ONE (16:56)
[2018-09-21] MEDS ORDERED: MIDAZOLAM 2 MG/2 ML VIAL ONE ×2 (17:12→18:47)
--- NOTE | 2018-09-21 17:27 | HOSPPROG ---
Hospitalist Progress Note Assessment/Plan: # MRSA post-op infection with bacteremia - s/p debridement x 2, operative cultures with MRSA -Vanc, Cr stable. Cxs 09/20 NGTD - echo with no vegetations (printed report in chart; not in [employer]) -exchange PICC line once blood cxs clear #Severe MORA: concern for CSF leak; NSGY to take to OR today #Metabolic encephalopathy: due to pain, opioids. Hope improvement after procedure, so can wean downs meds #Urinary retention: stuart #Pain: uncontrolled today. [employer]CH[employer] restarted today. Was doing well on Dilaudid. Increase Gabapentin when MS improves #ABLA: 2 units RBCs 09/18 #Hypotension -resolved # hypoNa -resolved #Diet: reg #DVT ppx: Lovenox #Disp: inpatient admission with ongoing bacteremia. IV abx and Dilaudid bedside and questions answered. Subjective: pain controlled until completing PT this morning. Now 04/15 in head and legs Objective: Vital Signs Temp Pulse Resp BP Pulse Ox 37.2 C 97 18 122/72 H 93 09/21/18 15:38 09/21/18 15:38 09/21/18 15:38 09/21/18 15:38 09/21/18 15:38 Microbiology 09/16/18 06:50 Gram Stain - Final Other - Eswab 09/16/18 06:50 Gram Stain - Final Other - Eswab 09/18/18 09:05 Blood Panel (PCR) - Final Blood MRSA Laboratory Results 09/19/18 06:00 09/21/18 14:00 09/20/18 09/21/18 09/22/18 05:59 05:59 05:59 Intake Total 4750 750 300 Output Total 3140 640 960 Balance 1610 110 -660 - Time Spent With Patient Time Spent with Patient: greater than 35 minutes Time Spent with Patient: Greater than 35 minutes spent on this patients care, greater than 50% of time spent counseling, educating, and coordinating care regarding the above mentioned plan. - Physical Exam Constitutional: uncomfortable, other (very pale) Ears, Nose, Mouth, Throat: moist mucous membranes Cardiovascular: regular rate and rhythym Respiratory: no respiratory distress Gastrointestinal: normoactive bowel sounds Genitourinary: stuart in urethra Skin: warm Musculoskeletal: other (ROLF drain in place) Neurologic: CN II-XII Intact Psychiatric: encephalopathic (moaning), agitated ICD10 Worksheet Patient Problems: Problems Problem Status Onset Arthrodesis status Acute Post op infection Acute Fusion of spine of thoracolumbar region Acute MRSA (methicillin resistant Staphylococcus aureus) Acute 08/02/16
[2018-09-21] MEDS ORDERED: PROPOFOL 200 MG/20 ML VIAL ONE (17:40)
[2018-09-21] MEDS ORDERED: KETAMINE 200 MG/20 ML VIAL ONE (17:43)
--- NOTE | 2018-09-21 17:47 | PDANEPAE ---
ANE Past Medical History - Cardiovascular History Hx Hypertension: No Hx Arrhythmias: No Hx Chest Pain: No Hx Coronary Artery / Peripheral Vascular Disease: No Hx CHF / Valvular Disease: No Hx Palpitations: No Cardiovascular History Comment: RUNS LOW BP - Pulmonary History Hx COPD: No Hx Asthma/Reactive Airway Disease: No Hx Recent Upper Respiratory Infection: No Hx Oxygen in Use at Home: No Hx Sleep Apnea: No Sleep Apnea Screening Result - Last Documented: Negative - Neurologic History Hx Cerebrovascular Accident: No Hx Seizures: No Hx Dementia: No - Endocrine History Hx Diabetes: No Hypothyroid: Yes Hyperthyroid: No Obesity: no Endocrine History Comment: HYPOTHYROID - Renal History Hx Renal Disorders: Yes Renal History Comment: URINARY RETENTION - Liver History Hx Hepatic Disorders: No - Neurological & Psychiatric Hx Hx Neurological and Psychiatric Disorders: No - Cancer History Hx Cancer: No Cancer History Comment: BASAL CELLS REMOVED - Congenital Disorder History Hx Congenital Disorders: No - GI History Hx Gastrointestinal Disorders: No Gastrointestinal History Comment: GERD - Other Health History Other Health History: MICH OVARIAN CYSTS. DDD. SCOLOSIS. CHRONIC BACK PAIN - Chronic Pain History Chronic Pain: Yes (BACK) - Surgical History Prior Surgeries: NONE ANE Review of Systems Review of Systems: ANE Patient History - Allergies Allergies/Adverse Reactions: Penicillins Allergy (Verified 09/03/18 06:36) Rash - Home Medications Home Medications: Levothyroxine [Synthroid 88 mcg (*)] 88 mcg PO HS 01/04/16 [Last Taken 09/02/18 21:00] Multivitamins [Multivitamin (*)] 1 each PO DAILY 01/04/16 [Last Taken 08/24/18] Estring 1 each VG Q90D 08/17/18 [Last Taken 08/24/18] Leroy-3 Fatty Acids [Fish Oil 1000 mg (*)] 1,000 mg PO DAILY 08/17/18 [Last Taken 08/24/18] Herbals/Supplements -Info Only 1 ea PO DAILY 09/15/18 [Last Taken Unknown] Hydrocodone/Acetaminophen [Hydrocodon-Acetaminophen 5-325] 1 - 2 each PO Q4- 6PRN PRN 09/15/18 [Last Taken Unknown] Ibuprofen [Ibu-200] 200 - 600 mg PO Q8HRS PRN 09/15/18 [Last Taken Unknown] - NPO status NPO Since - Liquids (Date): 09/20/18 NPO Since - Liquids (Time): 23:00 NPO Since - Solids (Date): 09/20/18 NPO Since - Solids (Time): 22:00 - Smoking Hx Smoking Status: Former smoker - Family Anes Hx Family Hx Anesthesia Complications: NONE ANE Labs/Vital Signs - Labs Result Diagrams: 09/19/18 06:00 09/21/18 14:00 - Vital Signs Blood Pressure: 122/72 Heart Rate: 97 Respiratory Rate: 18 O2 Sat (%): 93 Height: 162.56 cm Weight: 54.25 kg ANE Physical Exam - Airway Mallampati Score: Class 1 Mouth exam: normal dental/mouth exam - Pulmonary Pulmonary: no respiratory distress, no rales or rhonchi, clear to auscultation - Cardiovascular Cardiovascular: regular rate and rhythym, no murmur, rub, or gallop - ASA Status ASA Status: III, E ANE Anesthesia Plan Anesthesia Plan: general endotracheal anesthesia
[2018-09-21] MEDS ORDERED: DIAZEPAM 5 MG/ML 1 ML SYR IVP PRN (17:48)
[2018-09-21] MEDS ORDERED: fentaNYL 100 MCG/2 ML INJ IVP PRN (17:48)
[2018-09-21] MEDS ORDERED: ONDANSETRON 4 MG/2 ML VIAL IVP PRN (17:48)
[2018-09-21] MEDS ORDERED: ALBUTEROL 3 ML DEYVIAL IH PRN (17:48)
[2018-09-21] MEDS ORDERED: LR 500 ML IV PRN (17:48)
[2018-09-21] MEDS ORDERED: ONDANSETRON 4 MG/2 ML VIAL ONE (17:51)
[2018-09-21] MEDS ORDERED: PHENYLEPHRINE HCL 100 MCG/ML SYR ONE (17:51)
[2018-09-21] MEDS ORDERED: ROCURONIUM 50 MG/5 ML VIAL ONE (17:51)
[2018-09-21] MEDS ORDERED: CALCIUM CHLORIDE 1 GM/10 ML INJ ONE (17:51)
[2018-09-21] MEDS ORDERED: LIDOCAINE 2% 2 ML INJ ONE (17:51)
[2018-09-21] MEDS ORDERED: SUGAMMADEX SODIUM 200 MG/2 ML VIAL IVP ONE (17:51)
[2018-09-21] MEDS ORDERED: HYDROmorphONE/DILAUDID 1 MG/ML INJ IVP PRN (18:00)
[2018-09-21] MEDS ORDERED: VANCOMYCIN 1 GM VIAL ONE (18:01)
[2018-09-21] MEDS ORDERED: BACITRACIN ZINC 0.5 OZ OINTTUBE TP ONE (18:05)
--- NOTE | 2018-09-21 18:35 | SOAPPROG ---
SOAP Progress Note Assessment/Plan: Assessment: 63 yo F sp T11-L5 fusion and wound washout on 09/15/18, 09/18/18 for MRSA wound infection and re-exploration of lumbar wound for csf leak on . Plan: neuro: stable MRSA wound infection, on vanco csf leak, no evidence of leak on reexploration, hob flat until Friday09/25/18 bedrest until 09/25/18 scd/raj/lovenox for dvt prophylaxis please call with neuro changes 09/21/18 07:25 09/21/18 18:33 Subjective: + back pain, no leg pain. Objective: Vital Signs Temp Pulse Resp BP Pulse Ox 37.2 C 97 18 122/72 H 93 09/21/18 15:38 09/21/18 17:47 09/21/18 17:47 09/21/18 17:47 09/21/18 17:47 Microbiology 09/16/18 06:50 Gram Stain - Final Other - Eswab 09/16/18 06:50 Gram Stain - Final Other - Eswab 09/18/18 09:05 Blood Panel (PCR) - Final Blood MRSA Laboratory Results 09/19/18 06:00 09/21/18 14:00 09/20/18 09/21/18 09/22/18 05:59 05:59 05:59 Intake Total 4750 750 300 Output Total 3140 640 960 Balance 1610 110 -660 somnolent PERRL, no facial droop IBRAHIMA x 4 + light touch ICD10 Worksheet Patient Problems: Problems Problem Status Onset Arthrodesis status Acute Post op infection Acute Fusion of spine of thoracolumbar region Acute MRSA (methicillin resistant Staphylococcus aureus) Acute 08/02/16
[2018-09-21] MEDS ORDERED: MIDAZOLAM 2 MG/2 ML VIAL IVP ONE (18:45)
--- NOTE | 2018-09-21 18:45 | POSTANESTH ---
Post Anesthetic Evaluation Cardiovascular Status: Normal, Stable, Similar to Pre-Op Cond Respiratory Status: Normal, Stable, Similar to Pre-op Cond. Level of Consciousness/Mental Status: Mildly Sleepy, Arousable Pain Control: Adequate, Prn Tx Ordered Nausea/Vomiting Control: Adequate, Prn Tx Ordered Complications Possibly Related to Anesthesia: None Noted
--- NOTE | 2018-09-21 18:50 | GOP ---
[f rep st] OPERATIVE REPORT DATE OF OPERATION: 09/21/2018 SURGEON: Yan Nolasco MD ARTIST MODEL: Omer Cintron. ANESTHESIA: General endotracheal. PREOPERATIVE DIAGNOSIS: Recurring complex thoracolumbar postoperative wound infection. POSTOPERATIVE DIAGNOSIS: Recurring complex thoracolumbar postoperative wound infection. PROCEDURE PERFORMED: Incision and drainage/exploration of complex postoperative thoracolumbar spinal fusion wound. FINDINGS: ESTIMATED BLOOD LOSS: Trace. INDICATIONS: The patient is a 63-year-old woman who underwent a complex thoracolumbar spinal reconst ruction complicated by infection that has required multiple washouts, and she presents now for anothe r. DESCRIPTION OF PROCEDURE: After informed consent was obtained, patient was taken to the operating ro om and placed in the prone position on the Baldo table. The thoracolumbosacral areas were prepped and draped in a sterile fashion. The prior incision carefully opened down to the level of the spine and hardware. This was copiously irrigated with antibiotic irrigation after exploring the area and c arefully debriding it again. The location of the prior spinal leak was identified and a Valsalva man euver performed, and no leakage was identified. The dura was very taut, consistent with no leakage. After this, the wound was copiously irrigated and further debrided. Another drain was placed, and t he wound was closed in a layered fashion using interrupted Vicryl sutures followed by a running Prole ne on the skin. COMPLICATIONS: None. DISPOSITION: The patient is currently in the process of being repositioned for extubation. /[id number]/MODL
[2018-09-21] MEDS: NS 1,000 ML IV SCH (22:04)
[2018-09-22] MEDS: HYDROmorphONE/DILAUDID 2 MG TAB PO PRN ×6 (02:04→23:12)
[2018-09-22] MEDS: ACETAMINOPHEN 500 MG TAB PO SCH ×3 (05:43→23:11)
[2018-09-22] MEDS: GABAPENTIN 300 MG CAP PO SCH ×3 (05:45→23:11)
--- NOTE | 2018-09-22 07:41 | NEUSURGPN ---
Date of Surgery: 09/21/18 Post Op Day: 1 Assessment/Plan: Assessment: 63 yo F sp T11-L5 fusion and wound washout on 09/15/18, 09/18/18 for MRSA wound infection and re-exploration of lumbar wound for csf leak on . Plan: -neuro: stable -MRSA wound infection, on vanco -csf leak, no evidence of leak on reexploration, hob flat until Friday09/25/18 -bedrest until 09/25/18 -scd/raj/lovenox for dvt prophylaxis -please call with neuro changes -discussed patient with Dr Kuo Subjective: pain controlled, denies headache Objective: AxOx4 MAEx4 5/ BLE Dressing/incision CDI RLOF patent Neuro Check Frequency: per routine Urinary Catheter in Place: Yes Urinary Catheter Indication: Other (Use Comment) (Bed rest) - Physician Discussed Patient with : Gaurav Neurosurgery Physical Exam - Vitals, I&O, Labs I and O 09/21/18 09/22/18 09/23/18 05:59 05:59 05:59 Intake Total 750 3170 Output Total 640 2950 Balance 110 220 Weight 54.25 kg Intake: Oral (ml) 500 1320 IV Intake (ml) 1100 IV Infused (ml) 250 750 Ns 1,000 ml @ 75 mls/hr 500 IV CONT [facility] Rx#: [id number] Vancomycin HCl/Normal 250 250 Saline 250 ml @ 250 mls/ hr IV Q12H [facility] Rx#: [id number] Output: Urine (ml) 550 2800 Catheter 550 2800 ROLF Drain Output (ml) 90 150 #1 Back 90 150 Other: Number of Stools Catheter 1 Toilet 1 Microbiology 09/16/18 06:50 Gram Stain - Final Other - Eswab 09/16/18 06:50 Gram Stain - Final Other - Eswab Vital Signs Temp Pulse Resp BP Pulse Ox 36.6 C 72 14 108/68 94 09/22/18 07:16 09/22/18 07:16 09/22/18 07:16 09/22/18 07:16 09/22/18 07:16 Laboratory Results 09/19/18 06:00 09/21/18 14:00 ICD10 Worksheet Patient Problems: Problems Problem Status Onset Arthrodesis status Acute Post op infection Acute Fusion of spine of thoracolumbar region Acute MRSA (methicillin resistant Staphylococcus aureus) Acute 08/02/16
[2018-09-22] MEDS: VANCOMYCIN HCL/NORMAL SALINE 250 ML IV SCH ×2 (08:55→20:21)
[2018-09-22] MEDS: SENNOSIDES/DOCUSATE SODIUM TAB PO SCH ×2 (08:58→20:20)
[2018-09-22] MEDS: NS 1,000 ML IV SCH (08:58)
[2018-09-22] MEDS: FAMOTIDINE 20 MG TAB PO SCH ×2 (08:58→20:21)
[2018-09-22] MEDS: ENOXAPARIN 40 MG/0.4 ML SYR SC SCH (08:58)
[2018-09-22] MEDS: HYDROmorphONE/DILAUDID 6 MG/30 ML PCA IV PRN (09:29)
[2018-09-22] MEDS: BACITRACIN/POLYMYXIN B SULFATE 28.3 GM TUBE TP SCH ×2 (09:39→23:16)
--- NOTE | 2018-09-22 10:30 | PCMIDPN ---
Assessment/Plan: 1. MRSA bacteremia secondary to extensive, deep postoperative back infection status post washout x2 (09/15 & 09/18) and reexploration for possible CSF leak ( no leak found) 09/21: Blood cultures seem to have thankfully cleared. If they remain negative tomorrow, can proceed with replacing PICC line. This was all explained to her in detail today. Recent vancomycin trough is fine. Will repeat serum creatinine and liver function tests tomorrow. Suspect will need chronic suppression after IV therapy given likely involvement of underlying hardware. 2. Visual disturbance: Patient will let us know if these unusual "flashes" continue. If they do, needs ophthalmological evaluation. Over 25 min spent with this patient today. 09/22/18 10:33 Subjective: Multiple questions and concerns today. Spent quite some time talking to her about the overall big picture with this infection. Status post re-exploration yesterday for possible CSF leak that was negative. She does have mild leg pain today, and notes that when she looks at my face, she occasionally sees a "flash ". Denies loss of visual bolton, curtains going over her eyes, or dark spots that move. No double vision. Very concerned about her prognosis. Objective: Vancomycin 1 g IV q.12 hours day 7 No fevers Vital Signs Temp Pulse Resp BP Pulse Ox 36.3 C 73 16 107/66 90 L 09/22/18 10:00 09/22/18 10:00 09/22/18 10:00 09/22/18 10:00 09/22/18 10:00 Microbiology 09/16/18 06:50 Gram Stain - Final Other - Eswab 09/16/18 06:50 Gram Stain - Final Other - Eswab Laboratory Results 09/19/18 06:00 09/21/18 14:00 09/21/18 09/22/18 09/23/18 05:59 05:59 05:59 Intake Total 750 3170 Output Total 640 2950 50 Balance 110 220 -50 ESR 26 MM/HR (0-30) 09/15/18 22:10 C-Reactive Protein 220.9 mg/L (<10.0) H 09/15/18 22:10 Blood cultures September 20 x2 no growth so far Blood cultures September 18 MRSA vancomycin VAISHNAVI of 1, susceptible to doxycycline Surface echocardiogram negative for vegetations - Physical Exam General Appearance: alert, other (Laying flat in bed, looks tired, pale) EENT: PERRL/EOMI, pharynx normal, No thrush Respiratory: lungs clear Cardiac/Chest: regular rate, rhythm, No systolic murmur Extremities: other (PICC line right upper extremity looks fine) Abdomen: non-tender, soft Back: other (Patient tells me that her dressings were just changed. Because of that I did not roll her over.) Skin: No rash, No embolic lesions ICD10 Worksheet Patient Problems: Problems Problem Status Onset Arthrodesis status Acute Post op infection Acute Fusion of spine of thoracolumbar region Acute MRSA (methicillin resistant Staphylococcus aureus) Acute 08/02/16
[2018-09-22] MEDS: POLYETHYLENE GLYCOL 3350 17 GM PKT PO PRN (10:45)
--- NOTE | 2018-09-22 11:11 | ASMTCMCOM ---
CM Note CM Note Notes: Pt had another I&D yesterday, is on bed rest until 09/25. OT continues to rec home. PT eval pending. Pt picc still needs replacing. Pt on Vanco IV Q12. D/c plan remains home with [facility] Date Signed: 09/22/2018 11:10 AM Electronically Signed By:BRANDY Phillip
--- NOTE | 2018-09-22 13:59 | HOSPPROG ---
Hospitalist Progress Note Assessment/Plan: 63 yo F w postop SSI, MRSA bacteremia MRSA post-op infection with bacteremia s/p debridement x 2, operative cultures with MRSA Vanc, Cr stable. Cxs 09/20 NGTD echo with no vegetations (printed report in chart; not in [employer]) exchange PICC line once blood cxs clear Severe MORA: CSF leak not seen Metabolic encephalopathy: due to pain, opioids. Hope improvement after procedure , so can wean downs meds 09/22- more alert Urinary retention: stuart Pain: uncontrolled today. SQE restarted today. Was doing well on Dilaudid. Increase Gabapentin when MS improves ABLA: 2 units RBCs 09/18 Hypotension -resolved hypoNa -resolved Diet: reg DVT ppx: Lovenox Disp: inpatient admission with ongoing bacteremia. IV abx and Dilaudid Subjective: case d/w dr timmons. afebrile. no csf leak on surgical eval Objective: Vital Signs Temp Pulse Resp BP Pulse Ox 36.9 C 72 14 108/69 93 09/22/18 11:48 09/22/18 11:48 09/22/18 11:48 09/22/18 11:48 09/22/18 11:48 Microbiology 09/16/18 06:50 Gram Stain - Final Other - Eswab 09/16/18 06:50 Gram Stain - Final Other - Eswab 09/16/18 06:50 Gram Stain - Final Other - Eswab Laboratory Results 09/19/18 06:00 09/21/18 14:00 09/21/18 09/22/18 09/23/18 05:59 05:59 05:59 Intake Total 750 3170 Output Total 640 2950 50 Balance 110 220 -50 - Physical Exam Constitutional: no apparent distress, appears nourished Eyes: PERRL, anicteric sclera Ears, Nose, Mouth, Throat: moist mucous membranes, hearing normal Cardiovascular: regular rate and rhythym, no murmur, rub, or gallop Respiratory: no respiratory distress, no rales or rhonchi Gastrointestinal: normoactive bowel sounds, soft, non-tender abdomen Genitourinary: no bladder fullness, stuart in urethra Skin: warm, normal color Musculoskeletal: full muscle strength Neurologic: AAOx3 ICD10 Worksheet Patient Problems: Problems Problem Status Onset Arthrodesis status Acute Post op infection Acute Fusion of spine of thoracolumbar region Acute MRSA (methicillin resistant Staphylococcus aureus) Acute 08/02/16
[2018-09-22] MEDS: MAGNESIUM HYDROXIDE 30 ML UDCUP PO PRN (16:41)
[2018-09-22] MEDS: ALTEPLASE 2 MG VIAL IVP PRN ×2 (18:32→19:44)
[2018-09-23] MEDS: NS 1,000 ML IV SCH (00:53)
[2018-09-23] MEDS: GABAPENTIN 300 MG CAP PO SCH ×3 (05:28→23:05)
[2018-09-23] MEDS: HYDROmorphONE/DILAUDID 2 MG TAB PO PRN (05:28)
[2018-09-23] MEDS: ACETAMINOPHEN 500 MG TAB PO SCH ×3 (06:40→23:04)
--- NOTE | 2018-09-23 07:47 | SOAPPROG ---
SOAP Progress Note Assessment/Plan: Assesment: S/P wound I&D 09/15, 09/18 and 09/21. MRSA bacteremia. ID following and currently on Vanco. Pt is feeling oversedated this AM but complains of bilateral buttock/leg pain Sierra for urinary retention Reports MORA when flat No new leg weakness or tingling. Na 132 today. Blood CX from 09/20: NGTD Plan: HOB flat until Friday AM. Follow Na, encourage salty diet and juices etc instead of water. ROLF not to suction Continue Lovenox ABx per ID ROLF to dimple suction Discussed with Dr. Kuo Subjective: Lying flat. Groggy. Complains of MORA and feeling "out of it." Reports ongoing pain in post thighs Objective: Vital Signs Temp Pulse Resp BP Pulse Ox 36.8 C 74 16 136/82 H 96 09/23/18 07:22 09/23/18 07:22 09/23/18 07:22 09/23/18 07:22 09/23/18 07:22 Microbiology 09/16/18 06:50 Gram Stain - Final Other - Eswab 09/16/18 06:50 Gram Stain - Final Other - Eswab 09/16/18 06:50 Gram Stain - Final Other - Eswab Laboratory Results 09/19/18 06:00 09/23/18 05:30 09/22/18 09/23/18 09/24/18 05:59 05:59 05:59 Intake Total 3170 1500 Output Total 2950 3520 Balance 220 -2019 Incision: CDI, no drainage ROLF: 40ml Neuro: Groggy but able to answer questions appropriately FOllows commands x 4 5/5 bilateral DF/PF, 4/5 bilateral iliopsoas (effort dependant due to sedation) ICD10 Worksheet Patient Problems: Problems Problem Status Onset Arthrodesis status Acute Post op infection Acute Fusion of spine of thoracolumbar region Acute MRSA (methicillin resistant Staphylococcus aureus) Acute 08/02/16
--- NOTE | 2018-09-23 09:36 | PCMIDPN ---
Assessment/Plan: # MRSA deep postop infection complicated by MRSA bacteremia. Blood cx cleared. S/p washout x 3, overall incision looks ok today, ROLF with serosang fluid. Course also complicated by CSF leak --hold off on PICC line change today due to oversedation --continue IV vancomycin, check trough tomorrow AM --remove stuart when ok from Neuro surg standpoint (probably not before Friday based on note) # Systolic Murmur: Mild AR, MR, TR. Murmur much less prominent today on exam, prominence likely related to anemia # H/o MRSA prior to surgery # Confusion: seems related to narcotics, discussed w nursing. Will decrease narcotics Medications Vancomycin 1000 mg IV q.12, #8 Microbiology 09/15/18 Blood Cx 2/2: MRSA vancomycin VAISHNAVI= 1 09/16/18 Surgical specimens all positive: MRSA 09/18/18 blood cx 1/2 : MRSA 09/20/17 blood cx 2/2 : NGTD Subjective: very sedated, difficult to get c/o Objective: Vital Signs Temp Pulse Resp BP Pulse Ox 36.8 C 74 16 136/82 H 96 09/23/18 07:22 09/23/18 07:22 09/23/18 07:22 09/23/18 07:22 09/23/18 07:22 Microbiology 09/16/18 06:50 Gram Stain - Final Other - Eswab 09/16/18 06:50 Gram Stain - Final Other - Eswab 09/16/18 06:50 Gram Stain - Final Other - Eswab Laboratory Results 09/19/18 06:00 09/23/18 05:30 09/22/18 09/23/18 09/24/18 05:59 05:59 05:59 Intake Total 3170 1500 Output Total 2950 3520 40 Balance 220 -2020 -40 ESR 26 MM/HR (0-30) 09/15/18 22:10 C-Reactive Protein 220.9 mg/L (<10.0) H 09/15/18 22:10 - Physical Exam General Appearance: other (sleepy, opens eyes to verbal stimulation, nonsensical ) EENT: pale conjunctiva, No scleral icterus, No thrush Respiratory: lungs clear, No accessory muscle use Neck: supple Cardiac/Chest: regular rate, rhythm, systolic murmur (faint) Pelvic Exam: stuart Skin: pallor, No rash Neuro/Psych: no motor/sensory deficits, alert - Line/s RUE PICC Lines: No drainage, No erythema - Time Spent With Patient Time Spent with Patient: greater than 35 minutes Time Spent with Patient: Greater than 35 minutes spent on this patients care, greater than 50% of time spent counseling, educating, and coordinating care regarding the above mentioned plan. ICD10 Worksheet Patient Problems: Problems Problem Status Onset Arthrodesis status Acute Post op infection Acute Fusion of spine of thoracolumbar region Acute MRSA (methicillin resistant Staphylococcus aureus) Acute 08/02/16
[2018-09-23] MEDS: VANCOMYCIN HCL/NORMAL SALINE 250 ML IV SCH ×2 (10:04→20:53)
[2018-09-23] MEDS: ENOXAPARIN 40 MG/0.4 ML SYR SC SCH (10:04)
[2018-09-23] MEDS: FAMOTIDINE 20 MG TAB PO SCH ×2 (10:05→20:53)
[2018-09-23] MEDS: SENNOSIDES/DOCUSATE SODIUM TAB PO SCH ×2 (10:05→20:53)
[2018-09-23] MEDS: BACITRACIN/POLYMYXIN B SULFATE 28.3 GM TUBE TP SCH ×2 (10:13→20:53)
--- NOTE | 2018-09-23 15:17 | HOSPPROG ---
Hospitalist Progress Note Assessment/Plan: 63 yo F w postop SSI, MRSA bacteremia MRSA post-op infection with bacteremia s/p debridement x 2, operative cultures with MRSA Vanc, Cr stable. Cxs 09/20 NGTD echo with no vegetations (printed report in chart; not in [employer]) exchange PICC line once blood cxs clear Severe MORA: CSF leak not seen Metabolic encephalopathy: due to pain, opioids. Hope improvement after procedure , so can wean downs meds 09/22- more alert Urinary retention: stuart Pain: uncontrolled today. 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 Was doing well on Dilaudid. Increase Gabapentin when MS improves ABLA: 2 units RBCs 09/18 Hypotension -resolved hypoNa -resolved Diet: reg DVT ppx: Lovenox Disp: inpatient admission with ongoing bacteremia. IV abx and Dilaudid Subjective: case d/w dr kaur Objective: Vital Signs Temp Pulse Resp BP Pulse Ox 36.9 C 73 16 103/68 95 09/23/18 11:49 09/23/18 12:31 09/23/18 11:49 09/23/18 12:31 09/23/18 12:31 Microbiology 09/16/18 06:50 Gram Stain - Final Other - Eswab 09/16/18 06:50 Gram Stain - Final Other - Eswab 09/16/18 06:50 Gram Stain - Final Other - Eswab Laboratory Results 09/19/18 06:00 09/23/18 05:30 09/22/18 09/23/18 09/24/18 05:59 05:59 05:59 Intake Total 3170 1500 Output Total 2950 3520 1180 Balance - Physical Exam Constitutional: no apparent distress, appears nourished Eyes: PERRL, anicteric sclera Ears, Nose, Mouth, Throat: moist mucous membranes, hearing normal Cardiovascular: regular rate and rhythym, no murmur, rub, or gallop, No tachycardia Respiratory: no respiratory distress, no rales or rhonchi Gastrointestinal: normoactive bowel sounds, soft, non-tender abdomen Genitourinary: no bladder fullness, No stuart in urethra Skin: warm, normal color Musculoskeletal: No full muscle strength Neurologic: AAOx3 ICD10 Worksheet Patient Problems: Problems Problem Status Onset Arthrodesis status Acute Post op infection Acute Fusion of spine of thoracolumbar region Acute MRSA (methicillin resistant Staphylococcus aureus) Acute 08/02/16
[2018-09-23] MEDS ORDERED: NS 1,000 ML IV SCH (16:30)
[2018-09-23] MEDS: traMADol 50 MG TAB PO PRN (20:58)
[2018-09-23] MEDS: HYDROmorphONE/DILAUDID 6 MG/30 ML PCA IV PRN (22:30)
[2018-09-24] MEDS: GABAPENTIN 300 MG CAP PO SCH ×3 (06:09→22:30)
[2018-09-24] MEDS: traMADol 50 MG TAB PO PRN ×2 (06:09→20:28)
[2018-09-24] MEDS: ACETAMINOPHEN 500 MG TAB PO SCH ×3 (06:38→22:30)
--- NOTE | 2018-09-24 07:27 | SOAPPROG ---
SOAP Progress Note Assessment/Plan: Assessment: 63 yo F sp T11-L5 fusion and wound washout on 09/15/18, 09/18/18 for MRSA wound infection and re-exploration of lumbar wound for csf leak on . Plan: neuro: stable MRSA wound infection, on vanco per ID, no fevers csf leak, no evidence of leak on reexploration, hob flat until Friday09/25/18, advance activity in am bedrest until 09/25/18 hyponatremia: per IM scd/raj/lovenox for dvt prophylaxis please call with neuro changes discussed with DR Kuo 09/21/18 07:25 09/21/18 18:33 09/24/18 07:26 Subjective: headache when flat, back pain improving, no leg pain/weakness. Objective: Vital Signs Temp Pulse Resp BP Pulse Ox 36.8 C 70 16 127/77 H 94 09/24/18 04:00 09/24/18 04:00 09/24/18 04:00 09/24/18 04:00 09/24/18 04:00 Microbiology 09/18/18 09:05 Blood Culture - Final Blood 09/18/18 09:05 Blood Culture - Final Blood MRSA Blood Panel (PCR) - Final MRSA 09/16/18 06:50 Gram Stain - Final Other - Eswab 09/16/18 06:50 Gram Stain - Final Other - Eswab 09/16/18 06:50 Gram Stain - Final Other - Eswab Laboratory Results 09/19/18 06:00 09/23/18 05:30 09/23/18 09/24/18 09/25/18 05:59 05:59 05:59 Intake Total 1500 850 350 Output Total 0957 1335 865 Balance -2019 -485 -515 AAOX4, +FC PERRL, EOMI, no facial droop 5/5 + light touch C/D/I ICD10 Worksheet Patient Problems: Problems Problem Status Onset Arthrodesis status Acute Post op infection Acute Fusion of spine of thoracolumbar region Acute MRSA (methicillin resistant Staphylococcus aureus) Acute 08/02/16
[2018-09-24] MEDS: SENNOSIDES/DOCUSATE SODIUM TAB PO SCH ×2 (08:39→20:27)
[2018-09-24] MEDS: ENOXAPARIN 40 MG/0.4 ML SYR SC SCH (08:39)
[2018-09-24] MEDS: FAMOTIDINE 20 MG TAB PO SCH ×2 (08:39→20:27)
[2018-09-24] MEDS: VANCOMYCIN HCL/NORMAL SALINE 250 ML IV SCH ×2 (10:12→20:27)
[2018-09-24] MEDS: BACITRACIN/POLYMYXIN B SULFATE 28.3 GM TUBE TP SCH ×2 (11:06→22:30)
[2018-09-24] MEDS: ONDANSETRON DISINTEGRATING 4 MG TAB PO PRN ×2 (11:36→17:28)
--- NOTE | 2018-09-24 14:57 | HOSPPROG ---
Hospitalist Progress Note Assessment/Plan: 63 yo F w postop SSI, MRSA bacteremia MRSA post-op infection with bacteremia s/p debridement x 2, operative cultures with MRSA Vanc, Cr stable. Cxs 09/20 NGTD echo with no vegetations (printed report in chart; not in [employer]) exchange PICC line once blood cxs clear Severe MORA: CSF leak not seen Metabolic encephalopathy: due to pain, opioids. Hope improvement after procedure , so can wean downs meds 09/22- more alert Urinary retention: stuart Pain: uncontrolled today. 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 Was doing well on Dilaudid. Increase Gabapentin when MS improves ABLA: 2 units RBCs 09/18 Hypotension -resolved hypoNa -resolved Diet: reg DVT ppx: Lovenox Disp: inpatient admission with ongoing bacteremia. IV abx Subjective: case d/w ID . feels better today x headache Objective: Vital Signs Temp Pulse Resp BP Pulse Ox 37.1 C 72 16 121/77 H 95 09/24/18 11:29 09/24/18 11:29 09/24/18 11:29 09/24/18 11:29 09/24/18 11:29 Microbiology 09/16/18 06:50 Gram Stain - Final Other - Eswab 09/16/18 06:50 Gram Stain - Final Other - Eswab 09/16/18 06:50 Gram Stain - Final Other - Eswab 09/18/18 09:05 Blood Culture - Final Blood 09/18/18 09:05 Blood Culture - Final Blood MRSA Blood Panel (PCR) - Final MRSA Laboratory Results 09/19/18 06:00 09/23/18 05:30 09/23/18 09/24/18 09/25/18 05:59 05:59 05:59 Intake Total 1500 850 350 Output Total 3520 1335 865 Balance -2019 -842 -515 - Physical Exam Constitutional: no apparent distress, appears nourished Eyes: PERRL, anicteric sclera Ears, Nose, Mouth, Throat: moist mucous membranes, hearing normal Cardiovascular: regular rate and rhythym, no murmur, rub, or gallop Respiratory: no respiratory distress, no rales or rhonchi Gastrointestinal: normoactive bowel sounds, soft, non-tender abdomen Genitourinary: stuart in urethra Skin: warm, normal color Musculoskeletal: full muscle strength Neurologic: AAOx3 Psychiatric: interacting appropriately ICD10 Worksheet Patient Problems: Problems Problem Status Onset Arthrodesis status Acute Post op infection Acute Fusion of spine of thoracolumbar region Acute MRSA (methicillin resistant Staphylococcus aureus) Acute 08/02/16
[2018-09-24] MEDS: METHOCARBAMOL 750 MG TAB PO PRN (17:29)
--- NOTE | 2018-09-24 20:13 | PCMIDPN ---
Assessment/Plan: Assessment: 63-year-old woman with MRSA bloodstream infection complicating thoracolumbar spinal surgical site infection with the same organism. She has cleared her bloodstream although she has not obtained robust vancomycin trough levels. Her cervical neck pain and headache a concerning that she could have ongoing metastatic foci from her MRSA bloodstream infection. Will discuss MRI imaging of the cervical spine if the pain does not improve by tomorrow and/or if repeat fevers occur. 1. MRSA bloodstream infection secondary to deep surgical site infection of the thoracolumbar spine 2. Status post I&D and washout of thoracolumbar surgical site infection 2018 3. Status post T11-L5 posterior intermittent instrumentation and fusion 2018 Plan: 1. Continue vancomycin 2. Reviewed in detail potential side effects of vancomycin to include: allergy, rash, nausea, antibiotic-associated diarrhea, Clostridioides difficile colitis, acute kidney injury. 3. Re-evaluate tomorrow regarding headache in cervical neck pain to determine if imaging is warranted Tonny Bocanegra MD Infectious Diseases 09/24/18 20:17 Subjective: No objective fever but she is feeling flushed with peak temperatures of 99.1 degrees F. She notes new bifrontal headache today and cervical spinal pain which is also new. Overall she feels worse than her previous stays without clear signs or symptoms other than the headache and the neck pain. No rash or diarrhea. Objective: Vital Signs Temp Pulse Resp BP Pulse Ox 37.3 C 72 16 128/83 H 95 09/24/18 16:00 09/24/18 16:00 09/24/18 16:00 09/24/18 16:00 09/24/18 16:00 Microbiology 09/16/18 06:50 Gram Stain - Final Other - Eswab 09/16/18 06:50 Gram Stain - Final Other - Eswab 09/16/18 06:50 Gram Stain - Final Other - Eswab 09/18/18 09:05 Blood Culture - Final Blood 09/18/18 09:05 Blood Culture - Final Blood MRSA Blood Panel (PCR) - Final MRSA Laboratory Results 09/19/18 06:00 09/23/18 05:30 09/23/18 09/24/18 09/25/18 05:59 05:59 05:59 Intake Total 1500 850 350 Output Total 2439 6955 8962 Balance -1336 -356 -4613 ESR 26 MM/HR (0-30) 09/15/18 22:10 C-Reactive Protein 220.9 mg/L (<10.0) H 09/15/18 22:10 - Physical Exam General Appearance: no apparent distress, non-toxic EENT: No scleral icterus Respiratory: No respiratory distress, No accessory muscle use Neck: full range of motion, supple Neuro/Psych: alert, oriented x 3, depressed affect, No confused ICD10 Worksheet Patient Problems: Problems Problem Status Onset Arthrodesis status Acute Post op infection Acute Fusion of spine of thoracolumbar region Acute MRSA (methicillin resistant Staphylococcus aureus) Acute 08/02/16
[2018-09-25] MEDS: GABAPENTIN 300 MG CAP PO SCH ×3 (06:00→21:59)
[2018-09-25] MEDS: ACETAMINOPHEN 500 MG TAB PO SCH ×3 (06:00→22:39)
--- NOTE | 2018-09-25 08:20 | SOAPPROG ---
SOAP Progress Note Assessment/Plan: Assesment: S/P wound I&D 09/15, 09/18 and 09/21. MRSA bacteremia. ID following and currently on Vanco. Pt is feeling better today though still has MORA when flat Plan: HOB up slowly this AM. 30 degrees x 1 hr, then 45 degrees x 1 hr. then up with assist Continue ROLF to dimple suction PT/OT when OOB in brace Abx per ID 09/25/18 08:21 09/25/18 08:22 Subjective: Lying in bed, feeling "better." Has MORA when flat which is not consistent with spinal MORA. Denies numbness, tingling or weakness Objective: Vital Signs Temp Pulse Resp BP Pulse Ox 37.0 C 74 16 114/72 93 09/25/18 04:00 09/25/18 04:00 09/25/18 04:00 09/25/18 04:00 09/25/18 04:00 Microbiology 09/16/18 06:50 Gram Stain - Final Other - Eswab 09/16/18 06:50 Gram Stain - Final Other - Eswab 09/16/18 06:50 Gram Stain - Final Other - Eswab 09/18/18 09:05 Blood Culture - Final Blood 09/18/18 09:05 Blood Culture - Final Blood MRSA Blood Panel (PCR) - Final MRSA Laboratory Results 09/19/18 06:00 09/23/18 05:30 09/24/18 09/25/18 09/26/18 05:59 05:59 05:59 Intake Total 850 1400 Output Total 7705 2885 Balance -485 -1659 Neuro: RICE, sens +LT throughout Incision: CDI ROLF: 55ml ICD10 Worksheet Patient Problems: Problems Problem Status Onset Arthrodesis status Acute Post op infection Acute Fusion of spine of thoracolumbar region Acute MRSA (methicillin resistant Staphylococcus aureus) Acute 08/02/16
[2018-09-25] MEDS: BACITRACIN/POLYMYXIN B SULFATE 28.3 GM TUBE TP SCH ×2 (08:34→22:00)
[2018-09-25] MEDS: FAMOTIDINE 20 MG TAB PO SCH ×2 (08:55→21:59)
[2018-09-25] MEDS: METHOCARBAMOL 750 MG TAB PO PRN ×2 (08:55→16:55)
[2018-09-25] MEDS: SENNOSIDES/DOCUSATE SODIUM TAB PO SCH ×2 (08:55→22:15)
[2018-09-25] MEDS: ENOXAPARIN 40 MG/0.4 ML SYR SC SCH (08:56)
[2018-09-25] MEDS: VANCOMYCIN HCL/NORMAL SALINE 250 ML IV SCH ×2 (08:56→22:01)
--- NOTE | 2018-09-25 09:00 | PCMIDPN ---
Assessment/Plan: # MRSA deep postop infection complicated by MRSA bacteremia. Blood cx cleared. S/p washout x 3, overall incision looks ok today, ROLF with serosang fluid. Course also complicated by CSF leak. She is so much better today! No neck pain. AF. Minimal MORA --updated in her interagency for possible discharge late weekend --hold off on changing vancomycin dose, will dc on CI and suspect gradual accumulation # Systolic Murmur: Mild AR, MR, TR. Murmur much less prominent today on exam, prominence likely related to anemia # H/o MRSA prior to surgery Medications Vancomycin 1gm IV q.12, #10 Microbiology 09/15/18 Blood Cx 2/2: MRSA vancomycin VAISHNAVI= 1 09/16/18 Surgical specimens all positive: MRSA 09/18/18 blood cx 1/2 : MRSA 09/20/17 blood cx 2/2 : NGTD Subjective: Patient is cheerful, minimal headache. She states it is not near as severe as prior headache when she was raised immediately prior to last surgery. Neck pain has resolved. No low back pain. Minimal radiating pain down bilateral lower extremities. No lower extremity weakness Objective: Vital Signs Temp Pulse Resp BP Pulse Ox 36.9 C 69 16 121/82 H 94 09/25/18 08:00 09/25/18 08:00 09/25/18 08:00 09/25/18 08:00 09/25/18 08:00 Microbiology 09/16/18 06:50 Gram Stain - Final Other - Eswab 09/16/18 06:50 Gram Stain - Final Other - Eswab 09/16/18 06:50 Gram Stain - Final Other - Eswab 09/18/18 09:05 Blood Culture - Final Blood 09/18/18 09:05 Blood Culture - Final Blood MRSA Blood Panel (PCR) - Final MRSA Laboratory Results 09/19/18 06:00 09/23/18 05:30 09/24/18 09/25/18 09/26/18 05:59 05:59 05:59 Intake Total 850 1400 Output Total 1335 3055 Balance -485 -1655 ESR 26 MM/HR (0-30) 09/15/18 22:10 C-Reactive Protein 220.9 mg/L (<10.0) H 09/15/18 22:10 - Physical Exam General Appearance: alert, no apparent distress EENT: scleral icterus, No thrush Respiratory: lungs clear, No accessory muscle use Neck: supple Cardiac/Chest: regular rate, rhythm, systolic murmur Extremities: No pedal edema Abdomen: soft Back: other (Incision with continuous stitch, no purulence, no erythema, ROLF drain with a small amount of blood in the bulb) Skin: pallor, No jaundice, No rash Neuro/Psych: alert, normal mood/affect, oriented x 3 - Line/s RUE PICC Lines: No drainage, No erythema - Time Spent With Patient Time Spent with Patient: greater than 35 minutes Time Spent with Patient: Greater than 35 minutes spent on this patients care, greater than 50% of time spent counseling, educating, and coordinating care regarding the above mentioned plan. ICD10 Worksheet Patient Problems: Problems Problem Status Onset Arthrodesis status Acute Post op infection Acute Fusion of spine of thoracolumbar region Acute MRSA (methicillin resistant Staphylococcus aureus) Acute 08/02/16
--- NOTE | 2018-09-25 09:18 | PDIAF ---
- Diagnosis Diagnosis: MRSA bacteremia and post op infection T-L spine Code Status: Full Code - Medication Management Aspnet Developer Antibiotics: vancomycin 2gm IV continous infusion Fdc Antibiotic Stop Date: 11/13/18 Discharge Medications: electronically signed and located in the Home Medication List. PICC Care - Routine: Yes - Orders Isolation Type: Contact Isolation - Labs/Radiology BMP Date: 10/01/18 (Weekly ) CBC w/diff Date: 09/28/18 (Weekly Friday) CMP Date: 09/28/18 (Weekly Friday) CRP Date: 09/28/18 (Weekly Friday) Vanco Trough Date and Time: Weekly Friday and Call or Fax Lab and Imaging Results to: Arlette Adams MD [facility] for [facility] Diseases at fax [phone] - Follow Up Care Current Providers and Referrals: PATRIZIA WARD [Primary Care Provider] - Arlette Adams MD [Medical Doctor] - 10/06/18 9:30 am
[2018-09-25] MEDS ORDERED: ALTEPLASE 2 MG VIAL IVP PRN (09:39)
[2018-09-25] MEDS: traMADol 50 MG TAB PO PRN ×2 (11:40→17:51)
[2018-09-25] MEDS: POLYETHYLENE GLYCOL 3350 17 GM PKT PO PRN (11:41)
--- NOTE | 2018-09-25 14:42 | HOSPPROG ---
Hospitalist Progress Note Assessment/Plan: 63 yo F w postop SSI, MRSA bacteremia MRSA post-op infection with bacteremia s/p debridement x 2, operative cultures with MRSA Vanc, Cr stable. Cxs 09/20 NGTD echo with no vegetations (printed report in chart; not in [employer]) exchange PICC line once blood cxs clear Severe MORA: CSF leak not seen Metabolic encephalopathy: due to pain, opioids. Hope improvement after procedure , so can wean downs meds 09/22- more alert Urinary retention: stuart STUART OUT TODAY constipation: moved bowels Pain: uncontrolled today. 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 Was doing well on Dilaudid. Increase Gabapentin when MS improves ABLA: 2 units RBCs 09/18 Hypotension -resolved hypoNa -resolved Diet: reg DVT ppx: Lovenox Disp: inpatient admission with ongoing bacteremia. IV abx Subjective: 09/20 cx remain neg. case d/w dr kaur Objective: Vital Signs Temp Pulse Resp BP Pulse Ox 37.1 C 76 16 124/84 H 96 09/25/18 12:00 09/25/18 12:00 09/25/18 12:00 09/25/18 12:00 09/25/18 12:00 Microbiology 09/16/18 06:50 Gram Stain - Final Other - Eswab 09/16/18 06:50 Gram Stain - Final Other - Eswab 09/16/18 06:50 Gram Stain - Final Other - Eswab Laboratory Results 09/19/18 06:00 09/23/18 05:30 09/24/18 09/25/18 09/26/18 05:59 05:59 05:59 Intake Total 850 1400 Output Total 1335 3055 1320 Balance -485 -1655 -1320 - Physical Exam Constitutional: no apparent distress, appears nourished Eyes: PERRL, anicteric sclera Ears, Nose, Mouth, Throat: moist mucous membranes, hearing normal Cardiovascular: regular rate and rhythym, no murmur, rub, or gallop Respiratory: no respiratory distress, no rales or rhonchi Gastrointestinal: normoactive bowel sounds Genitourinary: No stuart in urethra Skin: warm, normal color Musculoskeletal: full muscle strength Neurologic: AAOx3 ICD10 Worksheet Patient Problems: Problems Problem Status Onset Arthrodesis status Acute Post op infection Acute Fusion of spine of thoracolumbar region Acute MRSA (methicillin resistant Staphylococcus aureus) Acute 08/02/16
--- NOTE | 2018-09-25 15:39 | ASMTCMCOM ---
CM Note CM Note Notes: Deaj from [facility] and Hayley from [facility] both on site today - update provided. Patient off bed rest and was able to work with therapy today. Continue to anticipate home with [facility] and [facility] for IV Abx. CM will follow. Plan: [facility] TOLEDO, RN/PT/OT and [facility] Date Signed: 09/25/2018 03:39 PM Electronically Signed By:Yennifer Sterling RN
[2018-09-26] MEDS: traMADol 50 MG TAB PO PRN ×4 (00:16→21:52)
[2018-09-26] MEDS: ACETAMINOPHEN 500 MG TAB PO SCH ×3 (06:15→21:51)
[2018-09-26] MEDS: GABAPENTIN 300 MG CAP PO SCH ×3 (06:15→21:51)
[2018-09-26] MEDS: ENOXAPARIN 40 MG/0.4 ML SYR SC SCH (09:42)
[2018-09-26] MEDS: FAMOTIDINE 20 MG TAB PO SCH ×2 (09:42→21:52)
[2018-09-26] MEDS: VANCOMYCIN HCL/NORMAL SALINE 250 ML IV SCH ×2 (09:43→21:53)
[2018-09-26] MEDS: METHOCARBAMOL 750 MG TAB PO PRN ×2 (09:57→18:17)
[2018-09-26] MEDS: BACITRACIN/POLYMYXIN B SULFATE 28.3 GM TUBE TP SCH ×2 (10:02→21:54)
[2018-09-26] MEDS: SENNOSIDES/DOCUSATE SODIUM TAB PO SCH ×2 (11:23→21:53)
--- NOTE | 2018-09-26 11:26 | NEUSURGPN ---
Date of Surgery: 09/21/18 Post Op Day: 5 Assessment/Plan: Assessment: 63 yo female that is s/p wound wash out x 2 of a T-L fusion from 3 weeks ago POD #5 Plan: -MRSA bacteremia. ID following and currently on Vanco -Pt is feeling better today though still has MORA that is mild in nature-not positional -Pt with lower back pain -Incision is clean and dry -continue ROLF to dimple suction -PT/OT when OOB in brace -ambulating in bradley -Abx per ID -dispo pending approval from ID/IM -warning signs reviewed -call with any questions or concerns -d/w Dr Kuo Subjective: Awake and alert. NAD. Eating/drinking and voiding. No f/c/n/v/d. Objective: Awake and alert. NAD CN 2-12 grossly intact +lt touch RICE, sens +LT throughout Incision: CDI ROLF in place CDI Neuro Check Frequency: per routine Urinary Catheter in Place: No Catheter Insertion Date: 09/18/18 - Physician Discussed Patient with : Gaurav Neurosurgery Physical Exam - Vitals, I&O, Labs I and O 09/25/18 09/26/18 09/27/18 05:59 05:59 05:59 Intake Total 1400 1600 Output Total 3055 1606 Balance -1655 -6 Intake: Oral (ml) 550 1350 IV Infused (ml) 850 250 Ns 1,000 ml @ 75 mls/hr 600 IV CONT [facility] Rx#: [id number] Vancomycin HCl/Normal 250 250 Saline 250 ml @ 250 mls/ hr IV Q12H [facility] Rx#: [id number] Output: Urine (ml) 3000 1451 Catheter 3000 1450 Toilet 1 ROLF Drain Output (ml) 55 155 #1 Back 55 155 Other: Intake Quantity Yes Sufficient Number of Voids Catheter 1 1 Toilet 1 Number of Stools Catheter 1 Toilet 1 Microbiology 09/20/18 12:10 Blood Culture - Final Blood 09/20/18 09:55 Blood Culture - Final Blood 09/16/18 06:50 Gram Stain - Final Other - Eswab 09/16/18 06:50 Gram Stain - Final Other - Eswab 09/16/18 06:50 Gram Stain - Final Other - Eswab Vital Signs Temp Pulse Resp BP Pulse Ox 36.8 C 77 16 125/84 H 90 L 09/26/18 08:00 09/26/18 08:00 09/26/18 08:00 09/26/18 08:00 09/26/18 08:00 Laboratory Results 09/19/18 06:00 09/23/18 05:30 ICD10 Worksheet Patient Problems: Problems Problem Status Onset Arthrodesis status Acute Post op infection Acute Fusion of spine of thoracolumbar region Acute MRSA (methicillin resistant Staphylococcus aureus) Acute 08/02/16 - ICD10 Problem Qualifiers (1) Post op infection Qualifiers: Encounter type: initial encounter Postoperative infection type: deep incisional surgical site Qualified Code(s): T81.42XA - Infection following a procedure, deep incisional surgical site, initial encounter (2) Arthrodesis status
--- NOTE | 2018-09-26 16:20 | HOSPPROG ---
Hospitalist Progress Note Assessment/Plan: Subjective Follow-up on MRSA bacteremia. Patient states she is doing progressively better but still having headache today. No subjective fevers or chills. Her was with her at the bedside and updated as well. Objective Vital signs as detailed below Physical exam General-awake alert conversant no acute distress, sitting in chair at the bedside Heart-regular rate and rhythm no murmurs Lungs-Clear to auscultation with normal respiratory effort Abdomen-soft nontender nondistended normal bowel sounds -no Sierra catheter in place Extremities-no significant pitting edema or calf pain with palpation Skin-no concerning skin rashes noted Labs as detailed below Assessment and plan Bacteremia-MRSA. Repeat blood cultures document clearance. Continue vancomycin per Infectious Disease. Headache-seems improved compared to documentation from prior days. 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 Continue as needed tramadol which patient has used prior to coming into the hospital. Encephalopathy-appears to be clearing up. I suspect patient is at her baseline. Urine retention-Sierra catheter has been removed. Monitor over the coming days. Constipation-continue Senokot. Acute blood loss anemia-hemoglobin of 10 on last check. Reassess in the morning. DVT prophylaxis-Lovenox. Disposition-I would anticipate patient will be able to return home once medically clear. Objective: Vital Signs Temp Pulse Resp BP Pulse Ox 36.8 C 76 18 117/73 95 09/26/18 15:28 09/26/18 15:28 09/26/18 15:28 09/26/18 15:28 09/26/18 15:28 Microbiology 09/20/18 12:10 Blood Culture - Final Blood 09/20/18 09:55 Blood Culture - Final Blood 09/16/18 06:50 Gram Stain - Final Other - Eswab 09/16/18 06:50 Gram Stain - Final Other - Eswab 09/16/18 06:50 Gram Stain - Final Other - Eswab Laboratory Results 09/19/18 06:00 09/23/18 05:30 09/25/18 09/26/18 09/27/18 05:59 05:59 05:59 Intake Total 1400 1600 Output Total 0102 1606 80 Balance -1655 -6 -80 ICD10 Worksheet Patient Problems: Problems Problem Status Onset Arthrodesis status Acute Post op infection Acute Fusion of spine of thoracolumbar region Acute MRSA (methicillin resistant Staphylococcus aureus) Acute 08/02/16
[2018-09-27] MEDS: ACETAMINOPHEN 500 MG TAB PO SCH ×3 (05:31→22:00)
[2018-09-27] MEDS: traMADol 50 MG TAB PO PRN ×3 (05:32→19:38)
[2018-09-27] MEDS: GABAPENTIN 300 MG CAP PO SCH ×3 (05:32→22:00)
[2018-09-27 06:41] LABS: PLATELET COUNT 280 10^3/uL (150-400)
[2018-09-27] MEDS: VANCOMYCIN HCL/NORMAL SALINE 250 ML IV SCH ×2 (09:21→22:01)
[2018-09-27] MEDS: ENOXAPARIN 40 MG/0.4 ML SYR SC SCH (09:21)
[2018-09-27] MEDS: METHOCARBAMOL 750 MG TAB PO PRN ×2 (09:22→15:50)
[2018-09-27] MEDS: FAMOTIDINE 20 MG TAB PO SCH ×2 (09:22→22:01)
--- NOTE | 2018-09-27 09:25 | NEUSURGPN ---
Date of Surgery: 09/21/18 Post Op Day: 6 Assessment/Plan: Assessment: 63 yo female that is s/p wound wash out x 2 of a T-L fusion from 3 weeks ago POD #6 Plan: -MRSA bacteremia. ID following and currently on Vanco -Pt states that the lower back and sacral pain is "horrible and getting worse". -I ordered xrays as well as a L spine MRI with and wo -Pt with lower back pain that is painful with movement and getting up and down -Incision is clean and dry/dressing changed -continue ROLF to dimple suction -PT/OT when OOB in brace -ambulating in bradley and lower back/sacrum feels good but any movement causes pain to L spine/sacrum -Abx per ID -warning signs reviewed -call with any questions or concerns -d/w Dr Kuo Subjective: Awake and alert. NAD. Eating/drinking and voiding. Pt with worsening and "horrible" L spine and upper sacrum pain. No LE complaints below sacrum Objective: Awake and alert. NAD CN 2-12 grossly intact +lt touch RICE, sens +LT throughout Incision: CDI-dressing changed ROLF in place CDI Neuro Check Frequency: per routine Urinary Catheter in Place: No Catheter Insertion Date: 09/18/18 - Physician Discussed Patient with : Gaurav Neurosurgery Physical Exam - Vitals, I&O, Labs I and O 09/26/18 09/27/18 09/28/18 05:59 05:59 05:59 Intake Total 1600 250 500 Output Total 1606 200 Balance -6 50 500 Intake: Oral (ml) 1350 500 IV Infused (ml) 250 250 Vancomycin HCl/Normal 250 250 Saline 250 ml @ 250 mls/ hr IV Q12H [facility] Rx#: [id number] Output: Urine (ml) 1451 Catheter 1450 Toilet 1 ROLF Drain Output (ml) 155 200 #1 Back 155 200 Other: Intake Quantity Yes Sufficient Number of Voids Catheter 1 Toilet 1 1 1 Number of Stools Catheter 1 Toilet 1 1 Microbiology 09/20/18 12:10 Blood Culture - Final Blood 09/20/18 09:55 Blood Culture - Final Blood Vital Signs Temp Pulse Resp BP Pulse Ox 36.8 C 79 17 124/77 H 90 L 09/27/18 08:00 09/27/18 08:00 09/27/18 08:00 09/27/18 08:00 09/27/18 08:00 Laboratory Results 09/27/18 06:15 09/26/18 22:00 ICD10 Worksheet Patient Problems: Problems Problem Status Onset Arthrodesis status Acute Post op infection Acute Fusion of spine of thoracolumbar region Acute MRSA (methicillin resistant Staphylococcus aureus) Acute 08/02/16 - ICD10 Problem Qualifiers (1) Post op infection Qualifiers: Encounter type: initial encounter Postoperative infection type: deep incisional surgical site Qualified Code(s): T81.42XA - Infection following a procedure, deep incisional surgical site, initial encounter (2) Arthrodesis status
[2018-09-27] MEDS: SENNOSIDES/DOCUSATE SODIUM TAB PO SCH ×3 (09:27→22:04)
[2018-09-27] MEDS: BACITRACIN/POLYMYXIN B SULFATE 28.3 GM TUBE TP SCH ×2 (09:53→22:02)
[2018-09-27] MEDS ORDERED: GADOBUTROL 10 ML VIAL IVP ONE (12:46)
--- NOTE | 2018-09-27 16:15 | HOSPPROG ---
Hospitalist Progress Note Assessment/Plan: Subjective Follow-up on MRSA bacteremia. No subjective fevers or chills but she has noted worsening pain in her lower spine. She notes the pain most when she twists her torso. She is able to walk with physical therapy and I observed her walk with physical therapy today and she did quite well. She did have a bowel movement and states she is urinating without difficulty. Objective Vital signs as detailed below Physical exam General-awake alert conversant no acute distress, Heart-regular rate and rhythm no murmurs Lungs-Clear to auscultation with normal respiratory effort Abdomen-soft nontender nondistended normal bowel sounds -no Sierra catheter in place Extremities-no significant pitting edema or calf pain with palpation Skin-no concerning skin rashes noted Labs as detailed below Assessment and plan Bacteremia-MRSA. Repeat blood cultures document clearance. Continue vancomycin per Infectious Disease. Headache-seems improved. 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 Continue as needed tramadol which patient has used prior to coming into the hospital. Low back pain-MRI ordered for reassessment today. Acute blood loss anemia-hemoglobin of 10 on last check. Reassess in the morning. DVT prophylaxis-Lovenox. Disposition-I would anticipate patient will be able to return home once medically clear. Objective: Vital Signs Temp Pulse Resp BP Pulse Ox 36.6 C 76 17 125/80 H 96 09/27/18 15:00 09/27/18 15:00 09/27/18 15:00 09/27/18 15:00 09/27/18 15:00 Laboratory Results 09/27/18 06:15 09/26/18 22:00 09/26/18 09/27/18 09/28/18 05:59 05:59 05:59 Intake Total 9738 916 4703 Output Total 1606 200 Balance -6 50 1050 ICD10 Worksheet Patient Problems: Problems Problem Status Onset Arthrodesis status Acute Post op infection Acute Fusion of spine of thoracolumbar region Acute MRSA (methicillin resistant Staphylococcus aureus) Acute 08/02/16
[2018-09-28] MEDS: ACETAMINOPHEN 500 MG TAB PO SCH ×3 (05:46→23:00)
[2018-09-28] MEDS: traMADol 50 MG TAB PO PRN ×3 (05:47→18:14)
[2018-09-28] MEDS: GABAPENTIN 300 MG CAP PO SCH ×3 (05:47→21:12)
--- NOTE | 2018-09-28 08:04 | NEUSURGPN ---
Date of Surgery: 09/21/18 Post Op Day: 7 Assessment/Plan: Assessment: 63 yo female that is s/p wound wash out x 2/durotomy repair as well of a T-L fusion from 3 weeks prior to admission- POD #7 Plan: -MRSA bacteremia. ID following and currently on Vanco -Pt states that the lower back and sacral pain was "horrible and getting worse"- this prompted the MRI and xrays. Xrays show well placed hardware with no noted complications. MRI of the L spine show a post op fluid collection that is likely seroma or ?CSF leak -ROLF more productive with clear (slightly blood tinged) fluid. Pt with more positional headaches this am -Pt with lower back pain that is painful with movement and getting up and down -Incision is clean and dry -continue ROLF to dimple suction -PT/OT when OOB in brace -ambulating in br[place]ley and lower back/sacrum feels good but any movement causes pain to L spine/sacrum -Abx per ID -warning signs reviewed -call with any questions or concerns -d/w Dr Kuo/Timur Subjective: Awake and alert. NAD. Eating/drinking and voiding. No f/c/n/v/d. +MORA with ambulation. No neck/chest/abd or gu complaints. Objective: Awake and alert. NAD CN 2-12 grossly intact +lt touch RICE, sens +LT throughout Incision: CDI ROLF in place CDI Neuro Check Frequency: per routine Urinary Catheter in Place: No Catheter Insertion Date: 09/18/18 - Physician Discussed Patient with : Gaurav Neurosurgery Physical Exam - Vitals, I&O, Labs I and O 09/27/18 09/28/18 09/29/18 05:59 05:59 05:59 Intake Total 250 1900 Output Total 200 150 Balance 50 1750 Intake: Oral (ml) 1900 IV Infused (ml) 250 Vancomycin HCl/Normal 250 Saline 250 ml @ 250 mls/ hr IV Q12H [facility] Rx#: [id number] Output: ROLF Drain Output (ml) 200 150 #1 Back 200 150 Other: Number of Voids Toilet 1 3 Number of Stools Toilet 1 1 Vital Signs Temp Pulse Resp BP Pulse Ox 36.7 C 68 16 111/81 H 94 09/28/18 07:45 09/28/18 07:45 09/28/18 07:45 09/28/18 07:45 09/28/18 07:45 Laboratory Results 09/27/18 06:15 09/28/18 04:15 ICD10 Worksheet Patient Problems: Problems Problem Status Onset Arthrodesis status Acute Post op infection Acute Fusion of spine of thoracolumbar region Acute MRSA (methicillin resistant Staphylococcus aureus) Acute 08/02/16 - ICD10 Problem Qualifiers (1) Post op infection Qualifiers: Encounter type: initial encounter Postoperative infection type: deep incisional surgical site Qualified Code(s): T81.42XA - Infection following a procedure, deep incisional surgical site, initial encounter (2) Arthrodesis status
[2018-09-28] MEDS: VANCOMYCIN HCL/NORMAL SALINE 250 ML IV SCH ×2 (09:57→21:13)
[2018-09-28] MEDS: SENNOSIDES/DOCUSATE SODIUM TAB PO SCH ×2 (10:03→21:12)
[2018-09-28] MEDS: BACITRACIN/POLYMYXIN B SULFATE 28.3 GM TUBE TP SCH ×2 (10:03→21:31)
[2018-09-28] MEDS: FAMOTIDINE 20 MG TAB PO SCH ×2 (10:03→21:12)
[2018-09-28] MEDS: ENOXAPARIN 40 MG/0.4 ML SYR SC SCH ×2 (10:08→11:31)
[2018-09-28] MEDS: METHOCARBAMOL 750 MG TAB PO PRN ×2 (12:00→21:12)
--- NOTE | 2018-09-28 16:02 | ASMTCMCOM ---
CM Note CM Note Notes: Pt to have another surgery tomorrow for CSF leak. D/c plan remains home with [facility]. Date Signed: 09/28/2018 04:01 PM Electronically Signed By:BRANDY Phillip
--- NOTE | 2018-09-28 16:40 | HOSPPROG ---
Hospitalist Progress Note Assessment/Plan: Subjective Follow-up on MRSA bacteremia. No subjective fevers or chills but she has noted worsening pain in her lower spine. She does also state she has been having worsening headaches over the prior days. Case reviewed with neuro surgery this morning and concern of CSF leak based on MRI findings. I am told the tentative plan is for surgery tomorrow. Objective Vital signs as detailed below Physical exam General-awake alert conversant no acute distress, Heart-regular rate and rhythm no murmurs Lungs-Clear to auscultation with normal respiratory effort Abdomen-soft nontender nondistended normal bowel sounds -no Sierra catheter in place Extremities-no significant pitting edema or calf pain with palpation Skin-no concerning skin rashes noted Labs as detailed below Assessment and plan Bacteremia-MRSA. Repeat blood cultures document clearance. Continue vancomycin per Infectious Disease. Headache-suspect secondary to CSF leak. Patient states current pain medications in place are controlling symptoms adequately. Low back pain-MRI report reviewed with neuro surgery. Suspect secondary to CSF leak. Plan for surgery tentatively planned for tomorrow. 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 Acute blood loss anemia-will check daily over the next few days. DVT prophylaxis-I stop Lovenox order today in anticipation of surgery tomorrow. Disposition-we will need to see how she does postoperatively to determine the safest place for discharge. Objective: Vital Signs Temp Pulse Resp BP Pulse Ox 36.7 C 68 16 111/81 H 94 09/28/18 07:45 09/28/18 07:45 09/28/18 07:45 09/28/18 07:45 09/28/18 07:45 Microbiology 09/16/18 06:50 Gram Stain - Final Other - Eswab 09/16/18 06:50 Gram Stain - Final Other - Eswab 09/16/18 06:50 Gram Stain - Final Other - Eswab Laboratory Results 09/27/18 06:15 09/28/18 04:15 09/27/18 09/28/18 09/29/18 05:59 05:59 05:59 Intake Total 250 1900 Output Total 200 150 140 Balance 50 1750 -140 ICD10 Worksheet Patient Problems: Problems Problem Status Onset Arthrodesis status Acute Post op infection Acute Fusion of spine of thoracolumbar region Acute MRSA (methicillin resistant Staphylococcus aureus) Acute 08/02/16
[2018-09-29] MEDS: traMADol 50 MG TAB PO PRN (00:24)
[2018-09-29] MEDS: METHOCARBAMOL 750 MG TAB PO PRN (04:30)
[2018-09-29] MEDS: GABAPENTIN 300 MG CAP PO SCH ×3 (05:22→23:25)
[2018-09-29] MEDS: ACETAMINOPHEN 500 MG TAB PO SCH ×3 (05:22→23:26)
[2018-09-29] MEDS ORDERED: LR 1,000 ML IV ONE (06:26)
[2018-09-29] MEDS ORDERED: CHLORHEXIDINE GLUC HIBICLENS 118 ML BTL TP ONE (06:48)
[2018-09-29] MEDS ORDERED: BUPIVACAINE 0.25% 30 ML SDV ONE ×2 (06:48→06:50)
[2018-09-29] MEDS ORDERED: SURGIFLO MATRIX KIT WITH THROMBIN 8 ML TP ONE (06:48)
[2018-09-29] MEDS ORDERED: EPINEPHrine 1 MG/ML INJ ONE (06:49)
[2018-09-29] MEDS ORDERED: THROMBIN (BOVINE) 5,000 UNIT VIAL TP ONE (06:49)
[2018-09-29] MEDS ORDERED: BACITRACIN 50,000 UNITS/10 ML SYR IRR ONE ×2 (06:51→09:31)
[2018-09-29] MEDS ORDERED: MIDAZOLAM 2 MG/2 ML VIAL IVP ONE (06:56)
--- NOTE | 2018-09-29 06:56 | PDANEPAE ---
ANE History of Present Illness here for spine I and D ANE Past Medical History - Cardiovascular History Hx Hypertension: No Hx Arrhythmias: No Hx Chest Pain: No Hx Coronary Artery / Peripheral Vascular Disease: No Hx CHF / Valvular Disease: No Hx Palpitations: No Cardiovascular History Comment: RUNS LOW BP - Pulmonary History Hx COPD: No Hx Asthma/Reactive Airway Disease: No Hx Recent Upper Respiratory Infection: No Hx Oxygen in Use at Home: No Hx Sleep Apnea: No Sleep Apnea Screening Result - Last Documented: Negative - Neurologic History Hx Cerebrovascular Accident: No Hx Seizures: No Hx Dementia: No - Endocrine History Hx Diabetes: No Hypothyroid: Yes Hyperthyroid: No Obesity: no Endocrine History Comment: HYPOTHYROID - Renal History Hx Renal Disorders: Yes Renal History Comment: URINARY RETENTION - Liver History Hx Hepatic Disorders: No - Neurological & Psychiatric Hx Hx Neurological and Psychiatric Disorders: No - Cancer History Hx Cancer: No Cancer History Comment: BASAL CELLS REMOVED - Congenital Disorder History Hx Congenital Disorders: No - GI History Hx Gastrointestinal Disorders: No Gastrointestinal History Comment: GERD - Other Health History Other Health History: MICH OVARIAN CYSTS. DDD. SCOLOSIS. CHRONIC BACK PAIN - Chronic Pain History Chronic Pain: Yes (BACK) - Surgical History Prior Surgeries: NONE ANE Review of Systems Review of systems is: negative Review of Systems: - Exercise capacity Exercise capacity: <4 METS ANE Patient History - Allergies Allergies/Adverse Reactions: Penicillins Allergy (Verified 09/03/18 06:36) Rash - Home Medications Home medications: home medication list seen and reviewed Home Medications: Levothyroxine [Synthroid 88 mcg (*)] 88 mcg PO HS 01/04/16 [Last Taken 09/02/18 21:00] Multivitamins [Multivitamin (*)] 1 each PO DAILY 01/04/16 [Last Taken 08/24/18] Estring 1 each VG Q90D 08/17/18 [Last Taken 08/24/18] [place]-3 Fatty Acids [Fish Oil 1000 mg (*)] 1,000 mg PO DAILY 08/17/18 [Last Taken 08/24/18] Herbals/Supplements -Info Only 1 ea PO DAILY 09/15/18 [Last Taken Unknown] Hydrocodone/Acetaminophen [Hydrocodon-Acetaminophen 5-325] 1 - 2 each PO Q4- 6PRN PRN 09/15/18 [Last Taken Unknown] Ibuprofen [Ibu-200] 200 - 600 mg PO Q8HRS PRN 09/15/18 [Last Taken Unknown] - NPO status NPO Status: no food or drink >8 hours NPO Since - Liquids (Date): 09/29/18 NPO Since - Liquids (Time): 00:00 NPO Since - Solids (Date): 09/29/18 NPO Since - Solids (Time): 00:00 - Smoking Hx Smoking Status: Former smoker - Family Anes Hx Family Hx Anesthesia Complications: NONE ANE Labs/Vital Signs - Labs Result Diagrams: 09/28/18 23:17 09/28/18 04:15 - Vital Signs Vital Signs: reviewed preoperatively; see RN documention for details Blood Pressure: 123/80 Heart Rate: 76 Respiratory Rate: 15 O2 Sat (%): 90 Height: 162.56 cm Weight: 54.25 kg ANE Physical Exam - Airway Neck exam: FROM Mallampati Score: Class 1 Mouth exam: normal dental/mouth exam - Pulmonary Pulmonary: no respiratory distress - Cardiovascular Cardiovascular: regular rate and rhythym - ASA Status ASA Status: III ANE Anesthesia Plan Anesthesia Plan: general endotracheal anesthesia
[2018-09-29] MEDS ORDERED: LR 500 ML IV PRN (07:07)
[2018-09-29] MEDS ORDERED: HYDROmorphONE/DILAUDID 2 MG/ML INJ IVP PRN (07:07)
[2018-09-29] MEDS ORDERED: DEXAMETHASONE 4 MG/ML VIAL IVP PRN (07:07)
[2018-09-29] MEDS ORDERED: NALOXONE HCL 0.4 MG/ML INJ IVP PRN (07:07)
[2018-09-29] MEDS ORDERED: ALBUTEROL 3 ML DEYVIAL IH PRN (07:07)
[2018-09-29] MEDS ORDERED: ONDANSETRON 4 MG/2 ML VIAL IVP PRN (07:07)
[2018-09-29] MEDS ORDERED: PROPOFOL/EMULSION 500 MG/50 ML BOTTLE IV ONE (07:11)
[2018-09-29] MEDS ORDERED: ROCURONIUM 50 MG/5 ML VIAL ONE (07:11)
[2018-09-29] MEDS ORDERED: fentaNYL 100 MCG/2 ML INJ ONE ×3 (07:20→11:15)
[2018-09-29] MEDS ORDERED: ONDANSETRON 4 MG/2 ML VIAL ONE (07:49)
[2018-09-29] MEDS ORDERED: KETAMINE 200 MG/20 ML VIAL ONE (07:50)
[2018-09-29] MEDS ORDERED: ePHEDrine SULFATE 25 MG/5 ML SYR ONE (09:03)
[2018-09-29] MEDS ORDERED: PHENYLEPHRINE HCL 100 MCG/ML SYR ONE ×2 (09:31→10:40)
[2018-09-29] MEDS ORDERED: PROPOFOL 200 MG/20 ML VIAL ONE (10:34)
[2018-09-29] MEDS: fentaNYL 100 MCG/2 ML INJ IVP PRN ×3 (11:16→11:28)
[2018-09-29] MEDS: VANCOMYCIN HCL/NORMAL SALINE 250 ML IV SCH (11:36)
[2018-09-29] MEDS: SENNOSIDES/DOCUSATE SODIUM TAB PO SCH ×2 (11:36→20:24)
[2018-09-29] MEDS: FAMOTIDINE 20 MG TAB PO SCH ×2 (11:36→20:24)
[2018-09-29] MEDS: BACITRACIN/POLYMYXIN B SULFATE 28.3 GM TUBE TP SCH (11:36)
--- NOTE | 2018-09-29 11:53 | PCMIDPN ---
Assessment/Plan: # MRSA deep postop infection complicated by MRSA bacteremia. Blood cx cleared, CRP significantly trending down. S/p washout x 3. 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 --vanco T still 12, Cr 0.5 will increase dose to vancomycin 1.25gm IV q12 --recheck trough before 4th dose --patient to lie flat x 1 week --PICC Line exchanged last week # Systolic Murmur: Mild AR, MR, TR. Murmur much less prominent today on exam, prominence likely related to anemia # H/o MRSA prior to surgery Medications Vancomycin 1gm IV q.12, #14 Microbiology 09/15/18 Blood Cx 2/2: MRSA vancomycin VAISHNAVI= 1 09/16/18 Surgical specimens all positive: MRSA 09/18/18 blood cx 1/2 : MRSA 09/20/17 blood cx 2/2 : Neg Subjective: mild MORA, improved Mild L shooting L leg pain stuart placed in OR Objective: Vital Signs Temp Pulse Resp BP Pulse Ox 36.8 C 72 9 L 115/72 96 09/29/18 10:56 09/29/18 11:29 09/29/18 11:31 09/29/18 11:31 09/29/18 11:31 Microbiology 09/16/18 06:50 Gram Stain - Final Other - Eswab 09/16/18 06:50 Gram Stain - Final Other - Eswab 09/16/18 06:50 Gram Stain - Final Other - Eswab Laboratory Results 09/28/18 23:17 09/28/18 04:15 09/28/18 09/29/18 09/30/18 05:59 05:59 05:59 Intake Total 2246 417 9301 Output Total 150 260 955 Balance 1750 40 545 09/15/18 09/26/18 22:10 22:00 C-Reactive Protein 220.9 H 64.7 H - Physical Exam General Appearance: alert, no apparent distress EENT: pale conjunctiva, dry mucous membranes Respiratory: No accessory muscle use Neck: supple Cardiac/Chest: regular rate, rhythm, systolic murmur Pelvic Exam: stuart Back: other (surgical dressing in place, ROLF drain w serosang fluid) Neuro/Psych: alert, normal mood/affect, oriented x 3 - Line/s RUE PICC Lines: No drainage, No erythema - Time Spent With Patient Time Spent with Patient: greater than 35 minutes (care coordinated w neurosurg, nursing, hospitalist) Time Spent with Patient: Greater than 35 minutes spent on this patients care, greater than 50% of time spent counseling, educating, and coordinating care regarding the above mentioned plan. ICD10 Worksheet Patient Problems: Problems Problem Status Onset Arthrodesis status Acute Post op infection Acute Fusion of spine of thoracolumbar region Acute MRSA (methicillin resistant Staphylococcus aureus) Acute 08/02/16
--- NOTE | 2018-09-29 12:00 | POSTOPPROG ---
Post Op Note Date of Operation: 09/29/18 Surgeon: Johnnie Orr Leaflet Distributor: None Anesthesiologist: Shar Carlson Anesthesia: GET(General Endotracheal), Local (Specify) Pre-op Diagnosis: Dural tear; pseudomeningocele Post-op Diagnosis: Same Indication: Positional headaches Procedure: Wound exploration, dural repair, washout Findings: CSF leaking from prior dural repair; no other source of CSF leak observed Inf/Abcess present in the surg proc area at time of surgery?: Yes Depth: Organ Space EBL: Minimal Complications: None Bowel Protocol: N/A Clean Closure Performed: N/A Drains: Baldo Lord Specimen(s): None SOAP Progress Note Assessment/Plan: Assessment: Plan: 09/29/18 12:03 She is s/p wound exploration with redo repair of dural tear. She is stable. - readmit to med surg mcneal - ADAT - Lie flat - pain management Subjective: Low back pain 7/10. No leg pain at the moment. Objective: Vital Signs Temp Pulse Resp BP Pulse Ox 36.8 C 72 9 L 115/72 96 09/29/18 10:56 09/29/18 11:29 09/29/18 11:31 09/29/18 11:31 09/29/18 11:31 Microbiology 09/16/18 06:50 Gram Stain - Final Other - Eswab 09/16/18 06:50 Gram Stain - Final Other - Eswab 09/16/18 06:50 Gram Stain - Final Other - Eswab Laboratory Results 09/28/18 23:17 09/28/18 04:15 09/28/18 09/29/18 09/30/18 05:59 05:59 05:59 Intake Total 1139 404 1969 Output Total 150 260 955 Balance 1750 40 545 I saw Naomi in the PACU. Awake and alert, NAD Moves BLE with 5/5 strength in PF, EHL, DF, KE, HF SILT BLE ROLF drain with serosanguinous output - Pending Discharge Pending Discharge Within 24 Hours: No Pending Discharge Within 48 Hours: No
[2018-09-29] MEDS ORDERED: METHOCARBAMOL 750 MG TAB PO SCH (13:15)
[2018-09-29] MEDS: HYDROmorphONE/DILAUDID 2 MG TAB PO PRN ×4 (13:18→23:26)
[2018-09-29] MEDS: METHOCARBAMOL 750 MG TAB PO SCH ×3 (13:18→20:24)
--- NOTE | 2018-09-29 17:11 | HOSPPROG ---
Hospitalist Progress Note Assessment/Plan: Subjective Follow-up on MRSA bacteremia. Patient went to the operating room today to correct CSF leak discovered on MRI imaging over the weekend. Patient was seen on the floor after she had come back from surgery. Pain control discussed with her nurse today and we will try oral pain medications for now but we discussed that she may need to return on the Dilaudid QUALITATIVE RESEARCHER which she had prior. She apparently became obtunded previously when on the QUALITATIVE RESEARCHER so will need to do cautiously if initiated. Objective Vital signs as detailed below Physical exam General-awake alert conversant no acute distress, she did not appear confused or fatigue Heart-regular rate and rhythm no murmurs Lungs-Clear to auscultation with normal respiratory effort Abdomen-soft nontender nondistended normal bowel sounds -Sierra catheter in place with clear yellow urine Extremities-no significant pitting edema or calf pain with palpation, compression devices in place Skin-no concerning skin rashes noted Labs as detailed below Assessment and plan Bacteremia-MRSA. Repeat blood cultures document clearance. Continue vancomycin per Infectious Disease. CSF leak-patient is return from the operating room today. This accounts for headaches and low back pain she had complained about over prior days. Acute blood loss anemia-trend hemoglobin. DVT prophylaxis-Lovenox was stopped in anticipation of surgery this morning. If stable hemoglobin tomorrow then could resume. It is recommended that she remain flat for 7 days. Disposition-we will need to see how she does postoperatively to determine the safest place for discharge. Objective: Vital Signs Temp Pulse Resp BP Pulse Ox 37.1 C 81 18 106/66 91 L 09/29/18 15:06 09/29/18 15:06 09/29/18 15:06 09/29/18 15:06 09/29/18 15:06 Microbiology 09/16/18 06:50 Gram Stain - Final Other - Eswab 09/16/18 06:50 Gram Stain - Final Other - Eswab 09/16/18 06:50 Gram Stain - Final Other - Eswab Laboratory Results 09/28/18 23:17 09/28/18 04:15 09/28/18 09/29/18 09/30/18 05:59 05:59 05:59 Intake Total 3893 440 7269 Output Total 637 498 6852 Balance 1750 40 -255 ICD10 Worksheet Patient Problems: Problems Problem Status Onset Arthrodesis status Acute Post op infection Acute Fusion of spine of thoracolumbar region Acute MRSA (methicillin resistant Staphylococcus aureus) Acute 08/02/16
[2018-09-29] MEDS: VANCOMYCIN 1.25 GM in D5W 250 ML IV SCH (20:25)
[2018-09-30] MEDS: HYDROmorphONE/DILAUDID 2 MG TAB PO PRN ×5 (02:40→21:05)
[2018-09-30] MEDS: ACETAMINOPHEN 500 MG TAB PO SCH ×3 (05:44→21:34)
[2018-09-30] MEDS: METHOCARBAMOL 750 MG TAB PO SCH ×4 (05:45→21:05)
[2018-09-30] MEDS: GABAPENTIN 300 MG CAP PO SCH ×3 (05:45→21:05)
[2018-09-30] MEDS: SENNOSIDES/DOCUSATE SODIUM TAB PO SCH ×2 (08:38→21:05)
[2018-09-30] MEDS: VANCOMYCIN 1.25 GM in D5W 250 ML IV SCH ×2 (08:39→21:07)
[2018-09-30] MEDS: FAMOTIDINE 20 MG TAB PO SCH ×2 (08:39→21:05)
--- NOTE | 2018-09-30 08:48 | NEUSURGPN ---
Date of Surgery: 09/29/18 Post Op Day: 1 Assessment/Plan: 63 yo female that is s/p wound wash out/durotomy repair x 4 (09/16, 09/18, 09/21, ) as well of a T-L fusion from 3 weeks prior to admission Plan: -MRSA bacteremia. ID following and currently on Vanco -Continue ROLF drain (not to suction) -HOB flat for 7 days (till approximately 10/06/18) -pain control Discussed with Dr. Orr. Subjective: Headache improved compared to yesterday. Surgical pain currently controlled. Objective: Awake. Alert. PERRL. EOMI Muscle strength full at 5/5 Sensation intact Catheter Insertion Date: 09/18/18 - Physician Discussed Patient with Dr.: Other (Kirby) Neurosurgery Physical Exam - Vitals, I&O, Labs I and O 09/29/18 09/30/18 10/01/18 05:59 05:59 05:59 Intake Total 300 2000 Output Total 260 4745 745 Balance 40 -1335 -745 Weight 54.25 kg Intake: Oral (ml) 300 250 IV Intake (ml) 1000 IV Infused (ml) 750 Vancomycin 1.25 gm In D5w 250 250 ml @ 166.67 mls/hr IV Q12H [facility] Rx#: [id number] Vancomycin HCl/Normal 500 Saline 250 ml @ 250 mls/ hr IV Q12H [facility] Rx#: [id number] Output: Urine (ml) 3100 700 Catheter 3100 700 Estimated Blood Loss (ml) 50 ROLF Drain Output (ml) 260 185 45 #1 Back 260 #1 Back Baldo Lord 185 45 Other: Intake Quantity Yes Sufficient Number of Voids Toilet 1 Microbiology 09/16/18 06:50 Gram Stain - Final Other - Eswab 09/16/18 06:50 Gram Stain - Final Other - Eswab 09/16/18 06:50 Gram Stain - Final Other - Eswab Vital Signs Temp Pulse Resp BP Pulse Ox 36.7 C 70 16 96/65 L 90 L 09/30/18 08:00 09/30/18 08:00 09/30/18 08:00 09/30/18 08:00 09/30/18 08:00 Laboratory Results 09/28/18 23:17 09/28/18 04:15 ICD10 Worksheet Patient Problems: Problems Problem Status Onset Arthrodesis status Acute Post op infection Acute Fusion of spine of thoracolumbar region Acute MRSA (methicillin resistant Staphylococcus aureus) Acute 08/02/16
[2018-09-30] MEDS: traMADol 50 MG TAB PO PRN ×2 (10:44→22:24)
--- NOTE | 2018-09-30 13:48 | HOSPPROG ---
Hospitalist Progress Note Assessment/Plan: Bacteremia-MRSA. most recent blood culture is negative. ID following. Continue vancomycin per their recommendation. CSF leak-taken back to the OR yesterday for durotomy repair and washout. ROLF drain still in place. management per neurosurgery. Needs to remain flat until 10/06/18. Acute blood loss anemia-trend hemoglobin. DVT prophylaxis-Lovenox held for surgery. restart today. Disposition-we will need to see how she does postoperatively to determine the safest place for discharge. Subjective: still some headache although not as bad as previously. pain adequately controlled. Objective: Vital Signs Temp Pulse Resp BP Pulse Ox 36.5 C 70 16 96/65 L 92 09/30/18 11:29 09/30/18 11:29 09/30/18 11:29 09/30/18 11:29 09/30/18 11:29 Microbiology 09/16/18 06:50 Gram Stain - Final Other - Eswab Anaerobic Culture - Final MRSA Finegoldia Magna 09/16/18 06:50 Gram Stain - Final Other - Eswab Anaerobic Culture - Final MRSA 09/16/18 06:50 Gram Stain - Final Other - Eswab Anaerobic Culture - Final MRSA Laboratory Results 09/28/18 23:17 09/28/18 04:15 09/29/18 09/30/18 10/01/18 05:59 05:59 05:59 Intake Total 300 2000 Output Total 260 0983 085 Balance 76 -0003 -142 - Physical Exam Constitutional: no apparent distress, appears nourished, not in pain Eyes: PERRL, anicteric sclera, EOMI Ears, Nose, Mouth, Throat: moist mucous membranes, hearing normal, ears appear normal, no oral mucosal ulcers Cardiovascular: regular rate and rhythym, no murmur, rub, or gallop Respiratory: no respiratory distress, no rales or rhonchi, clear to auscultation Gastrointestinal: normoactive bowel sounds, soft, non-tender abdomen, no palpable masses Genitourinary: no bladder fullness, no bladder tenderness, no renal bruits Skin: no rashes or abrasions, no fluctuance, no induration Musculoskeletal: full muscle strength, no muscle tenderness, normal joint ROM Neurologic: AAOx3, sensation intact bilaterally Psychiatric: interacting appropriately, not anxious, not encephalopathic, thought process linear Lymph, Heme, Immunologic: no cervical LAD, no supraclavicular LAD ICD10 Worksheet Patient Problems: Problems Problem Status Onset Arthrodesis status Acute Post op infection Acute Fusion of spine of thoracolumbar region Acute MRSA (methicillin resistant Staphylococcus aureus) Acute 08/02/16
--- NOTE | 2018-09-30 15:42 | GOP ---
[f rep st] OPERATIVE REPORT DATE OF OPERATION: 09/29/2018 PREOPERATIVE DIAGNOSIS: 1. Durotomy with spinal fluid leak. 2. Positional headaches. 3. Methicillin-resistant Staphylococcus aureus surgical site infection. POSTOPERATIVE DIAGNOSIS: 1. Durotomy with spinal fluid leak. 2. Positional headaches. 3. Methicillin-resistant Staphylococcus aureus surgical site infection. PROCEDURES PERFORMED: 1. Extension of right L3 laminectomy to repair durotomy (CPT code 22251). 2. Debridement and pulse lavage of wound (CPT code 13316). 3. Microsurgical techniques with intraoperative microscope (CPT code 93904). NEUROSURGEON: Johnnie Orr M.D. GRAPHIC PRE PRESS TRADES WORKER: None. ANESTHESIA: General endotracheal and local. INDICATIONS: The patient is a 63-year-old woman who underwent extensive fusion from T11 through L5 over a month ago for degenerative spine disease. Unfortunately, she developed an MRSA surgical site infection which has been debrided twice in the past. During the last debridement, apparently a durotomy was caused by a piece of bone graft. This was repaired and the patient was lying flat for 5 days. However, when she began to mobilize again, she started to have positional headaches, worse when she was upright and better when lying down. An MRI scan was done and did show fluid collection within the surgical site, consistent with spinal fluid. She also had thin blood-tinged fluid coming through her previously placed subfascial ROLF drain. She had no neurological deficits on exam. Given her symptoms of positional headaches, known durotomy, imaging findings, and quality of fluid coming from ROLF drain, it was recommended that she have a re-exploration and repair of durotomy, as well as a repeat washout of infection. DESCRIPTION OF PROCEDURE: Prior to surgery, all the indications, risks, benefits, alternatives, and expected recovery were discussed with the patient and her . Appropriate consent forms were signed. The operative site was marked by the surgeon. She was brought to the operating room where general anesthesia was induced and she was intubated without any complications. Appropriate lines were maintained. A Sierra catheter was placed. She was then turned into prone position on the Baldo table. All pressure points were appropriately padded. A time-out was done per protocol. Previously placed skin sutures were removed and the anchoring stitch in the previously placed ROLF drain was cut. The ROLF drain was removed. She was then prepped and draped in the usual sterile fashion. Approximately 20 mL of 0.25% Marcaine with epinephrine were instilled around the edges of the incision for local anesthesia and vasoconstriction. The prior wound bed was then opened by bluntly the edges and cutting the previously placed subcutaneous and fascial sutures. This provided exposure of the dorsal spine and pedicle screws and rods. There was no sign of active infection, including no purulent fluid. At this point the operative microscope was brought to the field. There was a layer of Gelfoam covering the previously repaired durotomy at the L3 level. This Gelfoam was removed and there was clear fluid emanating from the thecal sac around the prior repair. There were no obvious tears. The cephalad and caudal spine were also inspected under the microscope and no other areas of spinal fluid leak were observed. At this point, the right L3 laminectomy was extended cephalad and laterally to better expose the thecal sac. The lateral thecal sac was inspected and again no other source of spinal fluid leak was observed. The area of prior repair was oversewn with a running 4-0 Nurolon suture. A Valsalva maneuver was performed and no further spinal fluid leak was observed. Again, the caudal and cephalad spine were also inspected with Valsalva maneuvers being applied and no other sign of spinal fluid leak was observed. A piece of Duragen onlay was placed over the new closure. The microscope was moved away. The Duragen was then covered with cottonoids and a 4 x 4 gauze sponge. At this point, a washout was performed using the Aniboom pulse lavage device with 3 L of saline containing bacitracin. Once it was irrigated, the gauze and cottonoids were removed and attention was turned to closure. A new 10 Setswana round Baldo-Lord drain was placed in the subfascial space and brought out through a separate stab incision at the left inferior aspect of the wound. The paraspinal muscles were reapproximated with interrupted 0 Vicryl sutures, the fascia was closed tightly with interrupted overlapping [id number] 0 Vicryl sutures, the subcutaneous layer was then closed with interrupted inverted 2-0 Vicryl sutures, and finally 3-0 nylon was used to close the skin. A 2-0 Vicryl was used to anchor the drain to the skin. Sterile dressings, including Xeroform, 4 x 4 gauze, and Medipore tape were then placed over the incision and the drain exit site. The drapes were then removed and the patient was returned to supine position on the bed. Care was returned to Anesthesia to evaluate for extubation. Notably all counts were correct x2 at the end of the case. ESTIMATED BLOOD LOSS: 25 mL. SPECIMENS: None. DRAINS: Subfascial 10-Setswana round Baldo-Lord drain. COMPLICATIONS: None apparent. DISPOSITION: It is expected the patient will be extubated in the operating room and then taken to the Post-Anesthesia Care Unit for further recovery. /[id number]/MODL MTDD
[2018-10-01] MEDS: HYDROmorphONE/DILAUDID 2 MG TAB PO PRN ×4 (01:07→21:34)
[2018-10-01] MEDS: GABAPENTIN 300 MG CAP PO SCH ×3 (05:29→21:34)
[2018-10-01] MEDS: METHOCARBAMOL 750 MG TAB PO SCH ×4 (05:29→21:34)
[2018-10-01] MEDS: ACETAMINOPHEN 500 MG TAB PO SCH ×3 (05:29→21:34)
--- NOTE | 2018-10-01 07:08 | NEUSURGPN ---
Date of Surgery: 09/29/18 Post Op Day: 2 Assessment/Plan: 63 yo female that is s/p wound wash out/durotomy repair x 4 (09/16, 09/18, 09/21, ) as well of a T-L fusion from 3 weeks prior to admission Plan: -MRSA bacteremia. ID following and currently on Vanco -Continue ROLF drain (not to suction) -HOB flat for 7 days (till approximately 10/06/18) -pain control Discussed with Dr. Orr. Subjective: Pain currently controlled. No LE symptoms. Headache improved compared to prior to surgery Objective: Awake. Alert. PERRL. Muscle strength full at 5/5 Incision with dressing c/d/i ROLF drain x 1 Catheter Insertion Date: 09/18/18 - Physician Discussed Patient with Dr.: Other (Dr. Orr) Neurosurgery Physical Exam - Vitals, I&O, Labs I and O 09/30/18 10/01/18 10/02/18 05:59 05:59 05:59 Intake Total 2000 250 Output Total 3335 1560 Balance -1335 -1310 Weight 54.25 kg Intake: Oral (ml) 250 IV Intake (ml) 1000 IV Infused (ml) 750 250 Vancomycin 1.25 gm In D5w 250 250 250 ml @ 166.67 mls/hr IV Q12H [facility] Rx#: [id number] Vancomycin HCl/Normal 500 Saline 250 ml @ 250 mls/ hr IV Q12H [facility] Rx#: [id number] Output: Urine (ml) 3100 1475 Catheter 3100 1475 Estimated Blood Loss (ml) 50 ROLF Drain Output (ml) 185 85 #1 Back Baldo Lord 185 85 Other: Intake Quantity Yes Sufficient Number of Voids Catheter 1 Microbiology 09/16/18 06:50 Gram Stain - Final Other - Eswab Anaerobic Culture - Final MRSA Finegoldia Magna 09/16/18 06:50 Gram Stain - Final Other - Eswab Anaerobic Culture - Final MRSA 09/16/18 06:50 Gram Stain - Final Other - Eswab Anaerobic Culture - Final MRSA Vital Signs Temp Pulse Resp BP Pulse Ox 37.2 C 84 16 114/76 92 09/30/18 23:23 09/30/18 23:23 09/30/18 23:23 09/30/18 23:23 09/30/18 23:23 Laboratory Results 09/28/18 23:17 ICD10 Worksheet Patient Problems: Problems Problem Status Onset Arthrodesis status Acute Post op infection Acute Fusion of spine of thoracolumbar region Acute MRSA (methicillin resistant Staphylococcus aureus) Acute 08/02/16
[2018-10-01] MEDS: FAMOTIDINE 20 MG TAB PO SCH ×2 (08:29→21:34)
[2018-10-01] MEDS ORDERED: NS 1,000 ML IV SCH (08:30)
[2018-10-01] MEDS: SENNOSIDES/DOCUSATE SODIUM TAB PO SCH ×2 (08:30→21:34)
[2018-10-01] MEDS: VANCOMYCIN 1.25 GM in D5W 250 ML IV SCH ×2 (09:15→21:41)
--- NOTE | 2018-10-01 10:21 | ASMTCMCOM ---
CM Note CM Note Notes: Pt on bed rest until approx 10/06/18. D/c plan remains home with and services with Kimberlyn Pruitt RN Date Signed: 10/01/2018 10:20 AM Electronically Signed By:BRANDY Phillip
[2018-10-01] MEDS: traMADol 50 MG TAB PO PRN (10:35)
--- NOTE | 2018-10-01 12:45 | HOSPPROG ---
Hospitalist Progress Note Assessment/Plan: 63 year old female admitted with mrsa bacteremia, and CSF leak. Bacteremia-MRSA. most recent blood culture is negative. ID following. Continue vancomycin per their recommendation. CSF leak-taken back to the OR 09/29 for durotomy repair and washout. ROLF drain still in place. management per neurosurgery. Needs to remain flat until 10/06/18. hyponatremia- sodium of 128 today. patient likely not taking adequate po given that she cannot sit up. Will give low dose intravenous saline and recheck in am. if fails to correct with obtain urine studies. Acute blood loss anemia-trend hemoglobin. DVT prophylaxis-back on lovenox Fluids- intravenous saline Lytes- Low Na Nutrition- regular Cor- Full Dispo- inpatient Subjective: headache has resolved today. Objective: Vital Signs Temp Pulse Resp BP Pulse Ox 36.8 C 76 17 102/68 90 L 10/01/18 07:14 10/01/18 07:14 10/01/18 07:14 10/01/18 07:14 10/01/18 07:14 Microbiology 09/16/18 06:50 Gram Stain - Final Other - Eswab Anaerobic Culture - Final MRSA Finegoldia Magna 09/16/18 06:50 Gram Stain - Final Other - Eswab Anaerobic Culture - Final MRSA 09/16/18 06:50 Gram Stain - Final Other - Eswab Anaerobic Culture - Final MRSA Laboratory Results 09/28/18 23:17 10/01/18 07:00 09/30/18 10/01/18 10/02/18 05:59 05:59 05:59 Intake Total 1999 250 Output Total 3330 1560 Balance -1335 -1310 - Physical Exam Constitutional: no apparent distress, appears nourished, not in pain Eyes: PERRL, anicteric sclera, EOMI Ears, Nose, Mouth, Throat: moist mucous membranes, hearing normal, ears appear normal, no oral mucosal ulcers Cardiovascular: regular rate and rhythym, no murmur, rub, or gallop Respiratory: no respiratory distress, no rales or rhonchi, clear to auscultation Gastrointestinal: normoactive bowel sounds, soft, non-tender abdomen, no palpable masses Genitourinary: no bladder fullness, no bladder tenderness, no renal bruits Skin: no rashes or abrasions, no fluctuance, no induration Musculoskeletal: full muscle strength, no muscle tenderness, normal joint ROM Neurologic: AAOx3, sensation intact bilaterally Psychiatric: interacting appropriately, not anxious, not encephalopathic, thought process linear Lymph, Heme, Immunologic: no cervical LAD, no supraclavicular LAD ICD10 Worksheet Patient Problems: Problems Problem Status Onset Arthrodesis status Acute Post op infection Acute Fusion of spine of thoracolumbar region Acute MRSA (methicillin resistant Staphylococcus aureus) Acute 08/02/16
[2018-10-01] MEDS: POLYETHYLENE GLYCOL 3350 17 GM PKT PO PRN (13:50)
[2018-10-02] MEDS: HYDROmorphONE/DILAUDID 2 MG TAB PO PRN ×2 (06:17→21:03)
[2018-10-02] MEDS: METHOCARBAMOL 750 MG TAB PO SCH ×4 (06:17→21:04)
[2018-10-02] MEDS: ACETAMINOPHEN 500 MG TAB PO SCH ×3 (06:17→22:35)
[2018-10-02] MEDS: GABAPENTIN 300 MG CAP PO SCH ×3 (06:17→22:36)
--- NOTE | 2018-10-02 08:44 | PCMIDPN ---
Assessment/Plan: # MRSA deep postop infection complicated by MRSA bacteremia. Blood cx cleared, CRP significantly trending down. S/p washout x 3. Course also complicated by CSF leak and went back to OR 09/29/18 where Dural tear and pseudomeningocele identified and repaired. --vanco T okay, no change in antibiotic dose --Cr stable --clinically stable, please let ID know for any urgent clinically concerns --did not eval incision, dressing in place since OR Medications Vancomycin 1.25gm IV q.12, #16 Microbiology 09/15/18 Blood Cx 2/2: MRSA vancomycin VAISHNAVI= 1 09/16/18 Surgical specimens all positive: MRSA 09/18/18 blood cx 1/2 : MRSA 09/20/17 blood cx 2/2 : Neg Subjective: pain well controlled, is going to start tapering pain meds no diarrhea sleeping well Objective: Vital Signs Temp Pulse Resp BP Pulse Ox 37.0 C 69 18 113/75 95 10/01/18 22:34 10/01/18 22:34 10/01/18 22:34 10/01/18 22:34 10/01/18 22:34 Laboratory Results 09/28/18 23:17 10/02/18 03:45 10/01/18 10/02/18 10/03/18 05:59 05:59 05:59 Intake Total 250 1070 Output Total 1560 2755 105 Balance -1310 -1685 -105 ESR 26 MM/HR (0-30) 09/15/18 22:10 C-Reactive Protein 64.7 mg/L (<10.0) H 09/26/18 22:00 - Physical Exam General Appearance: alert, no apparent distress Respiratory: lungs clear, No accessory muscle use Neck: supple Cardiac/Chest: regular rate, rhythm, systolic murmur (minimal) Extremities: No pedal edema Pelvic Exam: stuart Neuro/Psych: alert, normal mood/affect, oriented x 3, No motor weakness - Line/s RUE PICC Lines: No drainage, No erythema - Time Spent With Patient Time Spent with Patient: greater than 25 minutes Time Spent with Patient: Greater than 25 minutes spent on this patients care, greater than 50% of time spent counseling, educating, and coordinating care regarding the above mentioned plan. ICD10 Worksheet Patient Problems: Problems Problem Status Onset Arthrodesis status Acute Post op infection Acute Fusion of spine of thoracolumbar region Acute MRSA (methicillin resistant Staphylococcus aureus) Acute 08/02/16
[2018-10-02] MEDS: FAMOTIDINE 20 MG TAB PO SCH ×2 (08:49→21:04)
[2018-10-02] MEDS: POLYETHYLENE GLYCOL 3350 17 GM PKT PO PRN (08:49)
[2018-10-02] MEDS: SENNOSIDES/DOCUSATE SODIUM TAB PO SCH ×2 (08:49→21:04)
[2018-10-02] MEDS: VANCOMYCIN 1.25 GM in D5W 250 ML IV SCH ×2 (08:50→21:04)
[2018-10-02] MEDS ORDERED: HYDROCORTISONE ACETATE 25 MG SUPP PR PRN (09:41)
--- NOTE | 2018-10-02 11:14 | NEUSURGPN ---
Assessment/Plan: 63 yo female that is s/p wound wash out/durotomy repair x 4 (09/16, 09/18, 09/21, ) as well of a T-L fusion from 3 weeks prior to admission Plan: -MRSA bacteremia. ID following and currently on Vanco -Continue ROLF drain (not to suction) -HOB flat for 7 days (till approximately 10/06/18) -pain control -Pulmonary toilet, including IS -Increase bowel protocol as patient has not had a BM in 4 days. Denies any discomfort Discussed with Dr. Orr. Subjective: Pain tolerable. Had a mild headache yesterday that has resolved Objective: Awake. Alert. PERRL. Muscle strength full at 5/5 Incision flat ROLF drain x 1 (sanguinous, not CSF colored) Catheter Insertion Date: 09/18/18 - Physician Discussed Patient with Dr.: Other (Kirby) Neurosurgery Physical Exam - Vitals, I&O, Labs I and O 10/01/18 10/02/18 10/03/18 05:59 05:59 05:59 Intake Total 250 1070 Output Total 1560 2755 105 Balance -1310 -1685 -105 Intake: Oral (ml) 1070 IV Infused (ml) 250 Vancomycin 1.25 gm In D5w 250 250 ml @ 166.67 mls/hr IV Q12H [facility] Rx#: [id number] Output: Urine (ml) 1475 2700 Catheter 1475 2700 ROLF Drain Output (ml) 85 55 105 #1 Back Baldo Lord 85 55 105 Other: Intake Quantity Yes Sufficient Number of Voids Catheter 1 Vital Signs Temp Pulse Resp BP Pulse Ox 37.1 C 77 18 104/68 92 10/02/18 08:00 10/02/18 08:00 10/01/18 22:34 10/02/18 08:00 10/02/18 08:00 Laboratory Results 09/28/18 23:17 10/02/18 03:45 ICD10 Worksheet Patient Problems: Problems Problem Status Onset Arthrodesis status Acute Post op infection Acute Fusion of spine of thoracolumbar region Acute MRSA (methicillin resistant Staphylococcus aureus) Acute 08/02/16
[2018-10-02] MEDS: traMADol 50 MG TAB PO PRN ×2 (13:02→19:03)
--- NOTE | 2018-10-02 15:45 | HOSPPROG ---
Hospitalist Progress Note Assessment/Plan: 63 year old female admitted with mrsa bacteremia, and CSF leak. Bacteremia-MRSA. most recent blood culture is negative. ID following. Continue vancomycin per their recommendation. CSF leak-taken back to the OR 09/29 for durotomy repair and washout. ROLF drain still in place. management per neurosurgery. Needs to remain flat until 10/06/18. hyponatremia- Responded to IV fluids. I stressed to her she needs to take more salt in not just free water. will continue to monitor. Acute blood loss anemia-trend hemoglobin. hemorrhoid- patient complaining of hemorrhoid bleeding, which seems to have stopped today. Added PRN preparation H DVT prophylaxis-back on lovenox Fluids- intravenous saline Lytes- Low Na Nutrition- regular Cor- Full Dispo- inpatient Subjective: having discomfort from hemorrhoid. Objective: Vital Signs Temp Pulse Resp BP Pulse Ox 37.1 C 77 18 104/68 92 10/02/18 08:00 10/02/18 08:00 10/01/18 22:34 10/02/18 08:00 10/02/18 08:00 Laboratory Results 09/28/18 23:17 10/02/18 03:45 10/01/18 10/02/18 10/03/18 05:59 05:59 05:59 Intake Total 250 1070 Output Total 1560 0756 2156 Balance -1310 -1685 -2155 - Physical Exam Constitutional: no apparent distress, appears nourished, not in pain Eyes: PERRL, anicteric sclera, EOMI Ears, Nose, Mouth, Throat: moist mucous membranes, hearing normal, ears appear normal, no oral mucosal ulcers Cardiovascular: regular rate and rhythym, no murmur, rub, or gallop Respiratory: no respiratory distress, no rales or rhonchi, clear to auscultation Gastrointestinal: normoactive bowel sounds, soft, non-tender abdomen, no palpable masses Genitourinary: no bladder fullness, no bladder tenderness, no renal bruits Skin: no rashes or abrasions, no fluctuance, no induration Musculoskeletal: full muscle strength, no muscle tenderness, normal joint ROM Neurologic: AAOx3, sensation intact bilaterally Psychiatric: interacting appropriately, not anxious, not encephalopathic, thought process linear Lymph, Heme, Immunologic: no cervical LAD, no supraclavicular LAD ICD10 Worksheet Patient Problems: Problems Problem Status Onset Arthrodesis status Acute Post op infection Acute Fusion of spine of thoracolumbar region Acute MRSA (methicillin resistant Staphylococcus aureus) Acute 08/02/16
[2018-10-02] MEDS: PREPARATION H 51 GM CRTUBE PR PRN (16:30)
[2018-10-03] MEDS: HYDROmorphONE/DILAUDID 2 MG TAB PO PRN (02:08)
[2018-10-03] MEDS: ACETAMINOPHEN 500 MG TAB PO SCH ×3 (06:34→22:00)
[2018-10-03] MEDS: GABAPENTIN 300 MG CAP PO SCH ×3 (06:34→21:50)
[2018-10-03] MEDS: METHOCARBAMOL 750 MG TAB PO SCH ×4 (06:34→21:50)
[2018-10-03] MEDS: SENNOSIDES/DOCUSATE SODIUM TAB PO SCH ×2 (09:31→21:50)
[2018-10-03] MEDS: FAMOTIDINE 20 MG TAB PO SCH ×2 (09:31→21:51)
[2018-10-03] MEDS: VANCOMYCIN 1.25 GM in D5W 250 ML IV SCH ×2 (09:39→21:52)
--- NOTE | 2018-10-03 10:40 | NEUSURGPN ---
Assessment/Plan: Assessment/Plan: 63 yo female that is s/p wound wash out/durotomy repair x 4 (09/16, 09/18, 09/21, ) as well of a T-L fusion from 3 weeks prior to admission Plan: -MRSA bacteremia. ID following and currently on Vanco -Continue ROLF drain (not to suction) output 165 in last 12- keep today -HOB flat for 7 days (till approximately 10/06/18) -Please change dressing -pain control- doing well on current regimen -Pulmonary toilet, including IS- encouraged this today with patient -Increase bowel protocol as patient has not had a BM in 5 days. Denies any discomfort Discussed with Dr. Orr. Subjective: Pain tolerable. No Headache. Denies fever, chills. Objective: Awake. Alert. PERRL. Muscle strength full at 5/5 Incision c/d/i ROLF drain x 1 (sanguinous, not CSF colored) Catheter Insertion Date: 09/18/18 - Physician Discussed Patient with Dr.: Other (Kirby) Neurosurgery Physical Exam - Vitals, I&O, Labs I and O 10/02/18 10/03/18 10/04/18 05:59 05:59 05:59 Intake Total 1070 950 Output Total 2755 2965 500 Balance -1684 Intake: Oral (ml) 1070 700 IV Infused (ml) 250 Vancomycin 1.25 gm In D5w 250 250 ml @ 166.67 mls/hr IV Q12H [facility] Rx#: [id number] Output: Urine (ml) 2700 2800 500 Catheter 2700 2800 500 ROLF Drain Output (ml) 55 165 #1 Back Baldo Lord 55 165 Other: Intake Quantity Yes Sufficient Number of Voids Catheter 1 Vital Signs Temp Pulse Resp BP Pulse Ox 36.6 C 75 16 106/72 94 10/03/18 08:00 10/03/18 08:00 10/03/18 08:00 10/03/18 08:00 10/03/18 08:00 Laboratory Results 09/28/18 23:17 10/02/18 03:45 ICD10 Worksheet Patient Problems: Problems Problem Status Onset Arthrodesis status Acute Post op infection Acute Fusion of spine of thoracolumbar region Acute MRSA (methicillin resistant Staphylococcus aureus) Acute 08/02/16
[2018-10-03] MEDS: POLYETHYLENE GLYCOL 3350 17 GM PKT PO PRN (13:25)
[2018-10-03] MEDS: traMADol 50 MG TAB PO PRN ×2 (13:31→21:50)
--- NOTE | 2018-10-03 15:42 | HOSPPROG ---
Hospitalist Progress Note Assessment/Plan: 63-year-old status post L1 through L5 fusion complicated by MRSA bacteremia and wound infection. She has had washout x3 on 09/16-09/18 and 09/21. She then had a complication of a positional headache and had a dural leak repair on 09/29. Currently she is bed-bound and must lie flat on her back for total of 7 days. Today's day 4. # MRSA wound infection and bacteremia. Most recent blood cultures are negative and patient followed by ID * Continue vancomycin, length of therapy per ID recommendations # CSF leak status post a katarzyna a me repair and washout currently on bed rest for 7 days total. Needs to remain flat until October 06 # hyponatremia, stable after IV fluids # expected post op blood loss, continue to monitor # mild hemorrhoidal bleeding, resolved Cor- Full Dispo- inpatient Subjective: Patient new to [place] and chart reviewed extensively. Currently pain is well controlled Objective: Vital Signs Temp Pulse Resp BP Pulse Ox 36.8 C 77 16 108/73 94 10/03/18 11:11 10/03/18 11:11 10/03/18 08:00 10/03/18 11:11 10/03/18 11:11 Laboratory Results 09/28/18 23:17 10/02/18 03:45 10/02/18 10/03/18 10/04/18 05:59 05:59 05:59 Intake Total 1070 950 Output Total 2755 2965 875 [facility] -1685 -2014 -875 - Physical Exam Constitutional: not in pain Eyes: PERRL, EOMI Ears, Nose, Mouth, Throat: moist mucous membranes Cardiovascular: regular rate and rhythym Respiratory: no respiratory distress, clear to auscultation Gastrointestinal: soft, non-tender abdomen Genitourinary: no bladder fullness Skin: normal color Neurologic: AAOx3 Psychiatric: interacting appropriately ICD10 Worksheet Patient Problems: Problems Problem Status Onset Arthrodesis status Acute Post op infection Acute Fusion of spine of thoracolumbar region Acute MRSA (methicillin resistant Staphylococcus aureus) Acute 08/02/16
[2018-10-04] MEDS: GABAPENTIN 300 MG CAP PO SCH ×3 (05:36→20:38)
[2018-10-04] MEDS: METHOCARBAMOL 750 MG TAB PO SCH ×4 (05:36→20:38)
[2018-10-04] MEDS: ACETAMINOPHEN 500 MG TAB PO SCH ×3 (05:36→22:48)
[2018-10-04] MEDS: SENNOSIDES/DOCUSATE SODIUM TAB PO SCH ×2 (08:34→20:38)
[2018-10-04] MEDS: FAMOTIDINE 20 MG TAB PO SCH ×2 (08:34→20:38)
[2018-10-04] MEDS: VANCOMYCIN 1.25 GM in D5W 250 ML IV SCH ×2 (08:35→20:38)
--- NOTE | 2018-10-04 12:16 | NEUSURGPN ---
Assessment/Plan: Assessment/Plan: 63 yo female that is s/p wound wash out/durotomy repair x 4 (09/16, 09/18, 09/21, ) as well of a T-L fusion from 3 weeks prior to admission Plan: -MRSA bacteremia. ID following and currently on Vanco -Continue ROLF drain (not to suction) output 30 in last 12. Likely keep due to infection but will check with Dr. Orr. No suction please -HOB flat for 7 days (till approximately 10/06/18) -pain control- doing well on current regimen -Pulmonary toilet, including IS- encouraged this today with patient -Increase bowel protocol as patient has not had a BM in 5 days. Denies any discomfort and finds it very difficult to try and have BM while laying flat Discussed with Dr. Orr. Subjective: Pain tolerable. No Headache. Denies any abdominal discomfort. Does not want to try and have BM while laying flat if possible. Denies fever, chills. Objective: Awake. Alert. PERRL. Muscle strength full at 5/5 Incision c/d/i ROLF drain x 1 (sanguinous, not CSF colored) Catheter Insertion Date: 09/29/18 - Physician Discussed Patient with Dr.: Other (Kirby) Neurosurgery Physical Exam - Vitals, I&O, Labs I and O 10/03/18 10/04/18 10/05/18 05:59 05:59 05:59 Intake Total 950 675 Output Total 2965 2945 Balance -2014 Intake: Oral (ml) 700 200 IV Infused (ml) 250 475 Vancomycin 1.25 gm In D5w 250 475 250 ml @ 166.67 mls/hr IV Q12H [facility] Rx#: [id number] Output: Urine (ml) 2800 2925 Catheter 2800 2925 ROLF Drain Output (ml) 165 20 #1 Back Baldo Lord 165 20 Other: Intake Quantity Yes Sufficient Number of Voids Catheter 1 Vital Signs Temp Pulse Resp BP Pulse Ox 36.9 C 70 17 85/58 L 92 10/04/18 08:00 10/04/18 08:00 10/04/18 08:00 10/04/18 08:00 10/04/18 08:00 Laboratory Results 09/28/18 23:17 10/02/18 03:45 ICD10 Worksheet Patient Problems: Problems Problem Status Onset Arthrodesis status Acute Post op infection Acute Fusion of spine of thoracolumbar region Acute MRSA (methicillin resistant Staphylococcus aureus) Acute 08/02/16
[2018-10-04] MEDS: traMADol 50 MG TAB PO PRN (12:50)
[2018-10-04] MEDS: POLYETHYLENE GLYCOL 3350 17 GM PKT PO PRN (14:02)
--- NOTE | 2018-10-04 15:20 | HOSPPROG ---
Hospitalist Progress Note Assessment/Plan: 63-year-old status post L1 through L5 fusion complicated by MRSA bacteremia and wound infection. She has had washout x3 on 09/16-09/18 and 09/21. She then had a complication of a positional headache and had a dural leak repair on 09/29. Currently she is bed-bound and must lie flat on her back for total of 7 days. Today's day 5. # MRSA wound infection and bacteremia. Most recent blood cultures are negative and patient followed by ID * Continue vancomycin, length of therapy per ID recommendations # CSF leak status post a katarzyna a me repair and washout currently on bed rest for 7 days total. Needs to remain flat until October 06 # Constipation: no BM for a few days. Started bowel protocol yesterday, minimal distention. # hyponatremia, stable after IV fluids # expected post op blood loss, continue to monitor # mild hemorrhoidal bleeding, resolved Cor- Full Dispo- inpatient Subjective: no new complaints, hasn't had a BM in several days. Objective: Vital Signs Temp Pulse Resp BP Pulse Ox 36.9 C 70 17 85/58 L 92 10/04/18 08:00 10/04/18 08:00 10/04/18 08:00 10/04/18 08:00 10/04/18 08:00 Laboratory Results 09/28/18 23:17 10/02/18 03:45 10/03/18 10/04/18 10/05/18 05:59 05:59 05:59 Intake Total 950 675 Output Total 2965 2945 Balance -2014 - Physical Exam Constitutional: uncomfortable Cardiovascular: regular rate and rhythym Respiratory: no respiratory distress, clear to auscultation Gastrointestinal: tenderness (very mild on lower abdomen.), No distension Skin: No normal color (slightly pale) Psychiatric: interacting appropriately ICD10 Worksheet Patient Problems: Problems Problem Status Onset MRSA (methicillin resistant Staphylococcus aureus) Acute 08/02/16 Fusion of spine of thoracolumbar region Acute Post op infection Acute Arthrodesis status Acute
--- NOTE | 2018-10-04 17:35 | ASMTCMCOM ---
CM Note CM Note Notes: CM spoke with pt's RN. Pt on bedrest until Oct 06, no therapies until that time. Pt to discharge home with [facility] and [facility] RN. Referrals have been sent CM to follow. D/C Plan: [facility], [facility] Date Signed: 10/04/2018 05:34 PM Electronically Signed By:Ethel Arnold
[2018-10-04] MEDS: HYDROmorphONE/DILAUDID 2 MG TAB PO PRN (22:46)
[2018-10-05] MEDS: GABAPENTIN 300 MG CAP PO SCH ×3 (06:20→21:23)
[2018-10-05] MEDS: METHOCARBAMOL 750 MG TAB PO SCH ×4 (06:20→21:22)
[2018-10-05] MEDS: ACETAMINOPHEN 500 MG TAB PO SCH ×3 (06:34→21:22)
--- NOTE | 2018-10-05 07:32 | SOAPPROG ---
SOAP Progress Note Assessment/Plan: Assessment: 63 yo F sp T11-L5 fusion and wound washout on 09/15/18, 09/18/18 for MRSA wound infection and re-exploration of lumbar wound for csf leak on 09/21/18 and 09/29. Plan: neuro: stable MRSA wound infection, on vanco per ID, no fevers csf leak, no evidence of leak on reexploration, hob flat until Friday 10/06, advance activity in am constipation, on bowel protocol ROLF x 1, will keep until output is minimal scd/raj/lovenox for dvt prophylaxis please call with neuro changes discussed with DR Kuo 09/21/18 07:25 09/21/18 18:33 09/24/18 07:26 10/05/18 07:30 Subjective: mild headache, no back pain, no leg pain or weakness. Objective: Vital Signs Temp Pulse Resp BP Pulse Ox 37.4 C 76 16 121/71 H 94 10/04/18 23:54 10/04/18 23:54 10/04/18 23:54 10/04/18 23:54 10/04/18 23:54 Laboratory Results 09/28/18 23:17 10/02/18 03:45 10/04/18 10/05/18 10/06/18 05:59 05:59 05:59 Intake Total 675 1900 Output Total 2945 2310 Balance -2270 -410 AAOx4, +FC PERRL, EOMI 5/5 + light touch C/D/I ICD10 Worksheet Patient Problems: Problems Problem Status Onset Arthrodesis status Acute Post op infection Acute Fusion of spine of thoracolumbar region Acute MRSA (methicillin resistant Staphylococcus aureus) Acute 08/02/16
[2018-10-05] MEDS: FAMOTIDINE 20 MG TAB PO SCH ×2 (08:14→21:53)
[2018-10-05] MEDS: SENNOSIDES/DOCUSATE SODIUM TAB PO SCH ×2 (08:15→21:22)
[2018-10-05 08:36] LABS: PLATELET COUNT 349 10^3/uL (150-400)
[2018-10-05] MEDS: VANCOMYCIN 1.25 GM in D5W 250 ML IV SCH ×2 (09:56→21:16)
[2018-10-05] MEDS ORDERED: SKIN ADHESIVE (DERMABOND) 1 EACH TP ONE (13:30)
--- NOTE | 2018-10-05 14:14 | HOSPPROG ---
Hospitalist Progress Note Assessment/Plan: # MRSA post-op infection (T11-L5 fusion) with bacteremia - s/p multiple debridements - cont vanc per ID # durotomy, pseudomeningocele, s/p repair - lying flat D#6/7 # R leg neuropathic pain - cont gabapentin # hypoNa - stable # constipation - resolved # ABLA post-op - stable Subjective: very impatient from lying flat for 5 days; we discussed the importance of this Objective: Vital Signs Temp Pulse Resp BP Pulse Ox 37.4 C 79 16 106/71 94 10/05/18 07:53 10/05/18 07:53 10/05/18 07:53 10/05/18 07:53 10/05/18 07:53 Laboratory Results 10/05/18 08:20 10/05/18 08:20 10/04/18 10/05/18 10/06/18 05:59 05:59 05:59 Intake Total 675 1900 650 Output Total 2945 2310 Balance -2270 -410 650 chart reviewed op note from dr rehman reviewed - Physical Exam Constitutional: no apparent distress, appears nourished Eyes: anicteric sclera Ears, Nose, Mouth, Throat: hearing normal Cardiovascular: No edema Respiratory: no respiratory distress Gastrointestinal: No distension Genitourinary: No stuart in urethra Skin: warm Musculoskeletal: full muscle strength Neurologic: AAOx3 ICD10 Worksheet Patient Problems: Problems Problem Status Onset MRSA (methicillin resistant Staphylococcus aureus) Acute 08/02/16 Fusion of spine of thoracolumbar region Acute Post op infection Acute Arthrodesis status Acute
[2018-10-05] MEDS: HYDROmorphONE/DILAUDID 2 MG TAB PO PRN (21:21)
[2018-10-06] MEDS: METHOCARBAMOL 750 MG TAB PO SCH ×4 (05:46→21:10)
[2018-10-06] MEDS: ACETAMINOPHEN 500 MG TAB PO SCH ×3 (05:47→21:11)
[2018-10-06] MEDS: GABAPENTIN 300 MG CAP PO SCH ×3 (05:47→21:10)
--- NOTE | 2018-10-06 09:11 | NEUSURGPN ---
Assessment/Plan: 63 yo female that is s/p wound wash out/durotomy repair x 4 (09/16, 09/18, 09/21, ) as well of a T-L fusion from 3 weeks prior to admission Plan: -MRSA bacteremia. ID following -Will slowly raise HOB 10 degrees an hour today starting at 0830 -pain control -Pulmonary toilet, including IS -Continue bowel protocol Discussed with Dr. Kuo Subjective: Denies any new leg pain, headaches Objective: Awake. Alert. PERRL. Muscle strength full at 5/5 Incision flat c/d/i Catheter Insertion Date: 09/29/18 - Physician Discussed Patient with DrSmiley: Gaurav Neurosurgery Physical Exam - Vitals, I&O, Labs I and O 10/05/18 10/06/18 10/07/18 05:59 05:59 05:59 Intake Total 1900 1630 550 Output Total 2310 650 1400 Balance -410 980 -850 Intake: Oral (ml) 1550 1630 300 IV Intake (ml) 100 IV Infused (ml) 250 250 Vancomycin 1.25 gm In D5w 250 250 250 ml @ 166.67 mls/hr IV Q12H [facility] Rx#: [id number] Output: Urine (ml) 2300 650 1400 Catheter 2300 650 1400 ROLF Drain Output (ml) 10 #1 Back Baldo Lord 10 Other: Intake Quantity Yes Yes Sufficient Output Comment Catheter Pt Has xlg bm 10/05/18 9:56 am Number of Voids Catheter 1 Number of Stools Catheter 1 Vital Signs Temp Pulse Resp BP Pulse Ox 37.3 C 75 16 95/65 L 94 10/06/18 08:00 10/06/18 08:00 10/06/18 08:00 10/06/18 08:00 10/06/18 08:00 Laboratory Results 10/05/18 08:20 10/05/18 08:20 ICD10 Worksheet Patient Problems: Problems Problem Status Onset Arthrodesis status Acute Post op infection Acute Fusion of spine of thoracolumbar region Acute MRSA (methicillin resistant Staphylococcus aureus) Acute 08/02/16
[2018-10-06] MEDS: FAMOTIDINE 20 MG TAB PO SCH ×2 (09:20→21:10)
[2018-10-06] MEDS: VANCOMYCIN 1.25 GM in D5W 250 ML IV SCH ×2 (09:20→21:09)
[2018-10-06] MEDS: SENNOSIDES/DOCUSATE SODIUM TAB PO SCH ×2 (09:20→21:10)
--- NOTE | 2018-10-06 13:35 | HOSPPROG ---
Hospitalist Progress Note Assessment/Plan: # MRSA post-op infection (T11-L5 fusion) with bacteremia - s/p multiple debridements - cont vanc per ID # durotomy, pseudomeningocele, s/p repair - slowly moving upright today per nsg # R leg neuropathic pain - cont gabapentin # hypoNa - stable # constipation - resolved # ABLA post-op - stable Subjective: happy to be sitting more upright today Objective: Vital Signs Temp Pulse Resp BP Pulse Ox 37.3 C 75 16 95/65 L 94 10/06/18 08:00 10/06/18 08:00 10/06/18 08:00 10/06/18 08:00 10/06/18 08:00 Laboratory Results 10/05/18 08:20 10/05/18 08:20 10/05/18 10/06/18 10/07/18 05:59 05:59 05:59 Intake Total 1900 1630 550 Output Total 2310 650 1400 Balance -410 980 -850 - Physical Exam Constitutional: other (sitting with bed at 50 degrees) ICD10 Worksheet Patient Problems: Problems Problem Status Onset MRSA (methicillin resistant Staphylococcus aureus) Acute 08/02/16 Fusion of spine of thoracolumbar region Acute Post op infection Acute Arthrodesis status Acute
[2018-10-06] MEDS: traMADol 50 MG TAB PO PRN (16:25)
[2018-10-06] MEDS: HYDROmorphONE/DILAUDID 2 MG TAB PO PRN (23:08)
[2018-10-07] MEDS: ACETAMINOPHEN 500 MG TAB PO SCH ×3 (05:32→23:45)
[2018-10-07] MEDS: GABAPENTIN 300 MG CAP PO SCH ×3 (05:33→21:30)
[2018-10-07] MEDS: METHOCARBAMOL 750 MG TAB PO SCH ×4 (05:33→21:29)
--- NOTE | 2018-10-07 07:53 | SOAPPROG ---
SOAP Progress Note Assessment/Plan: Assesment: 63 yo female that is s/p wound wash out/durotomy repair x 4 (09/16, 09/18, 09/21, ) as well of a T-L fusion from 3 weeks prior to admission Plan: -MRSA bacteremia. ID following -bladder scan this AM. -pain control -Pulmonary toilet, including IS -Continue bowel protocol Discussed with Dr. Kuo Subjective: Denies any new leg pain, headaches. States she was able to get up and Urinated 250 ml this AM. Objective: Awake. Alert. PERRL. Muscle strength full at 5/5 Incision no clear drainage. c/d/i NO ROLF 10/07/18 07:52 Objective: Vital Signs Temp Pulse Resp BP Pulse Ox 37.1 C 85 16 109/62 96 10/06/18 16:00 10/06/18 16:00 10/06/18 16:00 10/06/18 16:00 10/06/18 16:00 Laboratory Results 10/05/18 08:20 10/05/18 08:20 10/06/18 10/07/18 10/08/18 05:59 05:59 05:59 Intake Total 1630 1150 200 Output Total 650 1600 250 Balance 980 -450 -50 ICD10 Worksheet Patient Problems: Problems Problem Status Onset Arthrodesis status Acute Post op infection Acute Fusion of spine of thoracolumbar region Acute MRSA (methicillin resistant Staphylococcus aureus) Acute 08/02/16
[2018-10-07] MEDS: traMADol 50 MG TAB PO PRN ×2 (08:23→14:35)
[2018-10-07] MEDS: FAMOTIDINE 20 MG TAB PO SCH ×2 (08:23→21:29)
[2018-10-07] MEDS: VANCOMYCIN 1.25 GM in D5W 250 ML IV SCH ×2 (08:28→21:30)
[2018-10-07] MEDS: SENNOSIDES/DOCUSATE SODIUM TAB PO SCH ×2 (09:26→21:30)
--- NOTE | 2018-10-07 14:48 | HOSPPROG ---
Hospitalist Progress Note Assessment/Plan: # MRSA post-op infection (T11-L5 fusion) with bacteremia - s/p multiple debridements - cont vanc per ID # durotomy, pseudomeningocele, s/p repair - plans to ambulate today # R leg neuropathic pain - cont gabapentin # hypoNa - stable # constipation - resolved # ABLA post-op - stable Subjective: concerned about ambulating today but planning on it Objective: Vital Signs Temp Pulse Resp BP Pulse Ox 36.8 C 91 18 108/80 91 L 10/07/18 11:59 10/07/18 11:59 10/07/18 11:59 10/07/18 11:59 10/07/18 11:59 Laboratory Results 10/05/18 08:20 10/05/18 08:20 10/06/18 10/07/18 10/08/18 05:59 05:59 05:59 Intake Total 1630 1150 900 Output Total 650 1600 250 Balance 980 -450 650 - Physical Exam Constitutional: no apparent distress, appears nourished Eyes: anicteric sclera Ears, Nose, Mouth, Throat: hearing normal Cardiovascular: No edema Respiratory: no respiratory distress Gastrointestinal: No distension Genitourinary: No stuart in urethra Skin: normal color Neurologic: AAOx3 Psychiatric: not anxious ICD10 Worksheet Patient Problems: Problems Problem Status Onset MRSA (methicillin resistant Staphylococcus aureus) Acute 08/02/16 Fusion of spine of thoracolumbar region Acute Post op infection Acute Arthrodesis status Acute
--- NOTE | 2018-10-07 14:50 | ASMTCMCOM ---
CM Note CM Note Notes: Yesterday pt's HOB was elevated. Pt worked with OT yesterday and the rec is still home/HHC. No PT note on how pt has done since off BR. D/c plan of care remains home with and services of [facility] and [facility]. Date Signed: 10/07/2018 02:50 PM Electronically Signed By:BRANDY Phillip
[2018-10-07] MEDS: ONDANSETRON 4 MG/2 ML VIAL IVP PRN (18:03)
[2018-10-07] MEDS: HYDROmorphONE/DILAUDID 2 MG TAB PO PRN (21:32)
[2018-10-07] MEDS: PREPARATION H 51 GM CRTUBE PR PRN (21:46)
[2018-10-08] MEDS: ACETAMINOPHEN 500 MG TAB PO SCH ×3 (05:18→22:41)
[2018-10-08] MEDS: METHOCARBAMOL 750 MG TAB PO SCH ×4 (06:03→20:28)
[2018-10-08] MEDS: GABAPENTIN 300 MG CAP PO SCH ×3 (06:03→22:41)
--- NOTE | 2018-10-08 08:47 | NEUSURGPN ---
Assessment/Plan: 63 yo female that is s/p wound wash out/durotomy repair x 4 (09/16, 09/18, 09/21, ) as well of a T-L fusion from 3 weeks prior to admission Plan: -patient with episode of dizziness/word spinning around her, resolved with laying flat. No headaches this morning. Will continue to monitor -patient may be ambulatory today but only light activity, walk halls once. May work with PT/OT -MRSA bacteremia. ID following. On vanco -pain controlled Discussed with Dr. Kuo Subjective: Had an episode earlier this morning of the world spinning around her. Now resolved. Admits to intermittent pain at the right posterior thigh. Objective: Awake. Alert. PERRL. EOMI Facial expression symmetrical Muscle strength full at 5/5 Incision c/d/i Sensation intact Catheter Insertion Date: 09/29/18 - Physician Discussed Patient with DrSmiley: Guarav Neurosurgery Physical Exam - Vitals, I&O, Labs I and O 10/07/18 10/08/18 10/09/18 05:59 05:59 05:59 Intake Total 1150 1400 250 Output Total 1600 1650 300 Balance -450 -250 -50 Intake: Oral (ml) 600 1400 IV Intake (ml) 50 IV Infused (ml) 500 250 Vancomycin 1.25 gm In D5w 500 250 250 ml @ 166.67 mls/hr IV Q12H [facility] Rx#: [id number] Output: Urine (ml) 1600 1650 300 Catheter 1600 Toilet 1650 300 Other: Intake Quantity Yes Sufficient Output Comment Toilet pt encouraged to drink fluids and pt will attempt to void again after brfst Number of Voids Toilet 1 1 Bladder Scan Volume (ml) Catheter 257 Post Void Residual Scan Volume (ml) Toilet 350 Vital Signs Temp Pulse Resp BP Pulse Ox 36.9 C 72 16 89/62 L 94 10/08/18 07:24 10/08/18 07:24 10/08/18 07:24 10/08/18 07:24 10/08/18 07:24 Laboratory Results 10/05/18 08:20 10/08/18 06:10 ICD10 Worksheet Patient Problems: Problems Problem Status Onset Arthrodesis status Acute Post op infection Acute Fusion of spine of thoracolumbar region Acute MRSA (methicillin resistant Staphylococcus aureus) Acute 08/02/16
[2018-10-08] MEDS ORDERED: VANCOMYCIN 1 GM in D5W 250 ML IV SCH (09:18)
--- NOTE | 2018-10-08 09:19 | PCMIDPN ---
Assessment/Plan: # MRSA deep postop infection complicated by MRSA bacteremia. Blood cx cleared, CRP significantly trending down. S/p washout x 3. Course also complicated by CSF leak and went back to OR 09/29/18 where Dural tear and pseudomeningocele identified and repaired. s/p 1 week of laying flat --vanco T continuing to creep up, decrease dose to 1gm IV q12h --Cr, LFTs, ANC stable --clinically stable, please let ID know for any urgent clinically concerns # Dizziness, hypoNa, low BP: encouraged liquid and salt intake Medications Vancomycin 1.25gm IV q.12, Stop Date: 11/13/18 Microbiology 09/15/18 Blood Cx 2/2: MRSA vancomycin VAISHNAVI= 1 09/16/18 Surgical specimens all positive: MRSA 09/18/18 blood cx 1/2 : MRSA 09/20/17 blood cx 2/2 : Neg Subjective: very worried about recurrent CSF leak, episode of dizziness yesterday. Feels still a little lightness in her head today Not ready to go home today Minimal back and L leg pain Objective: Vital Signs Temp Pulse Resp BP Pulse Ox 36.9 C 72 16 89/62 L 94 10/08/18 07:24 10/08/18 07:24 10/08/18 07:24 10/08/18 07:24 10/08/18 07:24 Laboratory Results 10/05/18 08:20 10/08/18 06:10 10/07/18 10/08/18 10/09/18 05:59 05:59 05:59 Intake Total 1150 1400 250 Output Total 1600 1650 300 Balance -450 -250 -50 ESR 26 MM/HR (0-30) 09/15/18 22:10 C-Reactive Protein 58.5 mg/L (<10.0) H 10/05/18 08:20 - Physical Exam General Appearance: alert, no apparent distress, thin, non-toxic EENT: No thrush Respiratory: lungs clear, No accessory muscle use, No crackles Neck: supple Cardiac/Chest: regular rate, rhythm Extremities: No pedal edema Skin: pallor, No rash Neuro/Psych: alert, normal mood/affect, oriented x 3, No motor weakness - Line/s RUE PICC Lines: No drainage, No erythema - Time Spent With Patient Time Spent with Patient: greater than 35 minutes Time Spent with Patient: Greater than 35 minutes spent on this patients care, greater than 50% of time spent counseling, educating, and coordinating care regarding the above mentioned plan. ICD10 Worksheet Patient Problems: Problems Problem Status Onset Arthrodesis status Acute Post op infection Acute Fusion of spine of thoracolumbar region Acute MRSA (methicillin resistant Staphylococcus aureus) Acute 08/02/16
--- NOTE | 2018-10-08 09:24 | PDIAF ---
- Diagnosis Diagnosis: MRSA bacteremia and post op infection T-L spine Code Status: Full Code - Medication Management [employer] Antibiotics: vancomycin 1.75gm IV continous infusion Mcfp Antibiotic Stop Date: 11/13/18 Discharge Medications: electronically signed and located in the Home Medication List. PICC Care - Routine: Yes - Orders Isolation Type: Contact Isolation - Labs/Radiology BMP Date: 10/15/18 (Weekly ) CBC w/diff Date: 10/12/18 (Weekly Friday) CMP Date: 10/12/18 (Weekly Friday) CRP Date: 10/12/18 (Weekly Friday) Vanco Trough Date and Time: Weekly Friday and Call or Fax Lab and Imaging Results to: Arlette Adams MD [facility] at fax [phone] - Follow Up Care Current Providers and Referrals: Arlette Adams MD [Medical Doctor] - 10/16/18 11:00 am PATRIZIA WARD [Primary Care Provider] -
[2018-10-08] MEDS: FAMOTIDINE 20 MG TAB PO SCH ×2 (09:40→20:28)
[2018-10-08] MEDS: VANCOMYCIN HCL/NORMAL SALINE 250 ML IV SCH ×2 (09:43→20:31)
[2018-10-08] MEDS: VANCOMYCIN 1.25 GM in D5W 250 ML IV SCH (10:03)
[2018-10-08] MEDS: SENNOSIDES/DOCUSATE SODIUM TAB PO SCH ×2 (10:03→20:28)
--- NOTE | 2018-10-08 14:09 | HOSPPROG ---
Hospitalist Progress Note Assessment/Plan: DIAGNOSES: # MRSA post-op infection (T11-L5 fusion) with bacteremia - s/p multiple debridements # durotomy, pseudomeningocele, s/p repair - slowly progressing with ambulation, status post 1 week supine # episode of vertigo yesterday without other neurologic symptoms and without here/hearing symptoms, currently completely resolved - uncertain etiology, no prior episodes of vertigo # R leg neuropathic pain - cont gabapentin # hypoNa - stable # constipation - resolved # expected acute blood-loss anemia stable PLANS: * Continue PT and OT * Continue vancomycin * Wound management per Neurosurgery SUBJECTIVE: Feels somewhat better today, still weak and tired Eating well No feverish symptoms No respiratory symptoms OBJECTIVE Vitals reviewed: Blemish Remover, my review: Exam: alert oriented skin warm dry color ok resps not labored lungs clear BSs heart regular abd soft nondistended nontender, bowel sounds present limbs warm, no edema iv site ok Lab data: Sodium good on 30/4 rest of metabolic panel stable Objective: Vital Signs Temp Pulse Resp BP Pulse Ox 36.9 C 72 16 89/62 L 94 10/08/18 07:24 10/08/18 07:24 10/08/18 07:24 10/08/18 07:24 10/08/18 07:24 Laboratory Results 10/05/18 08:20 10/08/18 06:10 10/07/18 10/08/18 10/09/18 06:59 06:59 06:59 Intake Total 1350 1450 314 Output Total 1850 1400 300 Balance -500 50 14 ICD10 Worksheet Patient Problems: Problems Problem Status Onset Arthrodesis status Acute Post op infection Acute Fusion of spine of thoracolumbar region Acute MRSA (methicillin resistant Staphylococcus aureus) Acute 08/02/16
[2018-10-08] MEDS: PREPARATION H 51 GM CRTUBE PR PRN ×2 (15:45→20:34)
--- NOTE | 2018-10-08 16:13 | ASMTCMCOM ---
CM Note CM Note Notes: The ID transfer of care and picc replacement report were sent to [facility] today, pt to have IV Vanco continuous infusion until 11/13/18. Pt not medically stable for d/c today, [facility] and [facility] updated. D/c plan remains home with and services of [facility] Date Signed: 10/08/2018 04:12 PM Electronically Signed By:BRANDY Phillip
[2018-10-08] MEDS: HYDROmorphONE/DILAUDID 2 MG TAB PO PRN (22:42)
[2018-10-09] MEDS: ACETAMINOPHEN 500 MG TAB PO SCH ×3 (06:40→22:54)
[2018-10-09] MEDS: METHOCARBAMOL 750 MG TAB PO SCH ×4 (06:40→21:32)
[2018-10-09] MEDS: GABAPENTIN 300 MG CAP PO SCH ×3 (06:40→21:32)
--- NOTE | 2018-10-09 08:25 | SOAPPROG ---
SOAP Progress Note Assessment/Plan: Assesment: 63 yo female that is s/p wound wash out/durotomy repair x 4 (09/16, 09/18, 09/21, ) as well of a T-L fusion from 3 weeks prior to admission Plan: - DC Dilaudid -PT/OT as tolerated -MRSA bacteremia. ID following. On vanco -LSO when OOB -if lightheaded feeling resolves today, she may be able to DC home. Subjective: Out of bed in chair. States she still feels "woozy" Denies new leg pain, tingling or weakness. No MORA Objective: Awake. Alert. PERRL. EOMI Facial expression symmetrical Muscle strength full at 5/5 Incision c/d/i Sensation intact 10/09/18 08:23 Objective: Vital Signs Temp Pulse Resp BP Pulse Ox 36.6 C 79 16 91/65 L 94 10/09/18 07:35 10/09/18 07:35 10/09/18 07:35 10/09/18 07:35 10/09/18 07:35 Laboratory Results 10/05/18 08:20 10/08/18 06:10 10/08/18 10/09/18 10/10/18 05:59 05:59 05:59 Intake Total 1400 1164 Output Total 1650 1000 1000 Balance -250 164 -1000 ICD10 Worksheet Patient Problems: Problems Problem Status Onset Arthrodesis status Acute Post op infection Acute Fusion of spine of thoracolumbar region Acute MRSA (methicillin resistant Staphylococcus aureus) Acute 08/02/16
[2018-10-09] MEDS: SENNOSIDES/DOCUSATE SODIUM TAB PO SCH ×2 (09:11→21:32)
[2018-10-09] MEDS: FAMOTIDINE 20 MG TAB PO SCH ×2 (09:11→21:32)
[2018-10-09] MEDS: VANCOMYCIN HCL/NORMAL SALINE 250 ML IV SCH ×2 (09:11→21:32)
--- NOTE | 2018-10-09 13:47 | ASMTCMCOM ---
CM Note CM Note Notes: MARIZOL met with Leonor with [facility], patient likely to discharge in 1-2 days to home with [facility] and [facility]. CM sent updated notes via [employer]. CM to follow. D/C Plan: Home with [facility] and [facility]. Date Signed: 10/09/2018 01:47 PM Electronically Signed By:Pilar Wild
[2018-10-09] MEDS: ENOXAPARIN 40 MG/0.4 ML SYR SC SCH (14:09)
--- NOTE | 2018-10-09 15:43 | HOSPPROG ---
Hospitalist Progress Note Assessment/Plan: DIAGNOSES: # MRSA post-op infection (T11-L5 fusion) with bacteremia - s/p multiple debridements # durotomy, pseudomeningocele, s/p repair - slowly progressing with ambulation, status post 1 week supine # episode of vertigo yesterday without other neurologic symptoms and without here/hearing symptoms, currently completely resolved - uncertain etiology, no prior episodes of vertigo # R leg neuropathic pain - cont gabapentin # hypoNa - stable # constipation - resolved # expected acute blood-loss anemia stable PLANS: * Continue PT and OT * Continue vancomycin * Wound management per Neurosurgery SUBJECTIVE: walking well poor appetite but eating no definite fever sxs OBJECTIVE Vitals reviewed: stable Exam: alert oriented relaxed skin warm dry color ok resps not labored lungs clear BSs heart regular limbs warm, no edema iv site ok Objective: Vital Signs Temp Pulse Resp BP Pulse Ox 36.6 C 84 16 105/66 98 10/09/18 07:35 10/09/18 08:00 10/09/18 07:35 10/09/18 08:00 10/09/18 08:00 Laboratory Results 10/05/18 08:20 10/08/18 06:10 10/08/18 10/09/18 10/10/18 06:59 06:59 06:59 Intake Total 1450 916 790 Output Total 1400 1999 Balance 50 -1086 790 ICD10 Worksheet Patient Problems: Problems Problem Status Onset Arthrodesis status Acute Post op infection Acute Fusion of spine of thoracolumbar region Acute MRSA (methicillin resistant Staphylococcus aureus) Acute 08/02/16
[2018-10-10] MEDS: METHOCARBAMOL 750 MG TAB PO SCH ×2 (06:42→12:58)
[2018-10-10] MEDS: GABAPENTIN 300 MG CAP PO SCH (06:42)
[2018-10-10] MEDS: ACETAMINOPHEN 500 MG TAB PO SCH (06:42)
[2018-10-10 07:56] VITALS: BP 94/65
--- NOTE | 2018-10-10 08:10 | NEUSURGPN ---
Assessment/Plan: 63 yo female that is s/p wound wash out/durotomy repair x 4 (09/16, 09/18, 09/21, ) as well of a T-L fusion from 3 weeks prior to admission Plan: -patient with episode of dizziness/word spinning around her, resolved with laying flat. No headaches this morning. Will continue to monitor -patient may be ambulatory today but only light activity, walk halls once. May work with PT/OT -MRSA bacteremia. ID following. On vanco -pain controlled -DVT prophx: Lovenox, confirmed on medication today -Dispo planning once services set up with case management and cleared by medicine and ID Discussed with Dr. Kuo Subjective: low back pain , tolerable Objective: Awake. Alert. PERRL. EOMI Facial expression symmetrical Muscle strength full at 5/5 Incision c/d/i Sensation intact Catheter Insertion Date: 09/29/18 - Physician Discussed Patient with DrSmiley: Gaurav Neurosurgery Physical Exam - Vitals, I&O, Labs I and O 10/09/18 10/10/18 10/11/18 05:59 05:59 05:59 Intake Total 1164 2340 Output Total 1000 1900 Balance 164 440 Weight 50.1 kg Intake: Oral (ml) 350 1800 IV Intake (ml) 40 20 IV Infused (ml) 774 520 Vancomycin 1.25 gm In D5w 524 250 ml @ 166.67 mls/hr IV Q12H [facility] Rx#: [id number] Vancomycin HCl/Normal 250 520 Saline 250 ml @ 250 mls/ hr IV Q12H [facility] Rx#: [id number] Output: Urine (ml) 1000 1900 Toilet 1000 1900 Other: Number of Voids Toilet 1 1 Number of Stools Toilet 1 Vital Signs Temp Pulse Resp BP Pulse Ox 36.8 C 81 14 94/65 L 95 10/10/18 07:53 10/10/18 07:53 10/10/18 07:53 10/10/18 07:53 10/10/18 07:53 Laboratory Results 10/05/18 08:20 10/08/18 06:10 ICD10 Worksheet Patient Problems: Problems Problem Status Onset Arthrodesis status Acute Post op infection Acute Fusion of spine of thoracolumbar region Acute MRSA (methicillin resistant Staphylococcus aureus) Acute 08/02/16
[2018-10-10] MEDS: FAMOTIDINE 20 MG TAB PO SCH (08:32)
[2018-10-10] MEDS: SENNOSIDES/DOCUSATE SODIUM TAB PO SCH (08:33)
[2018-10-10] MEDS: ENOXAPARIN 40 MG/0.4 ML SYR SC SCH (08:33)
[2018-10-10] MEDS: VANCOMYCIN HCL/NORMAL SALINE 250 ML IV SCH (09:52)
--- NOTE | 2018-10-10 10:21 | ASMTLACE ---
LACE Length of stay for Answers: 14 days or more current admission Acuity / Level of Answers: Yes Care: Did the patient have an inpatient admission? Comorbidities - select Answers: Opioid dependence all that apply / Chronic pain Other Notes: Hypothyroid # of Emergency department Answers: 0 visits in the last 6 months Score: 15 Date Signed: 10/10/2018 10:20 AM Electronically Signed By:Karol Pitts
--- NOTE | 2018-10-10 10:22 | ASMTDCNOTE ---
Case Management Discharge Discharge Order Complete? Answers: Yes Patient to Obtain Answers: via Family Medications Transportation Arranged Answers: Family/Friends Faxed Final Orders Answers: Yes Agency/Facility Transfer Answers: Yes Report Printed & Faxed to Receiving Agency Family Notified Answers: Yes Discharge Comments Notes: [facility] have been notified that pt is discharging home today. Date Signed: 10/10/2018 10:22 AM Electronically Signed By:Karol Pitts
--- NOTE | 2018-10-21 06:34 | GDS ---
[f rep st] DISCHARGE SUMMARY /[id number]/MODL MTDD
--- NOTE | 2018-10-28 13:07 | GDS ---
[f rep st] DISCHARGE SUMMARY ADMISSION DIAGNOSIS: Postoperative wound infection. DISCHARGE DIAGNOSES: 1. Methicillin-resistant Staphylococcus aureus wound infection. 2. Cerebrospinal fluid leak requiring surgical repair. HISTORY AND PHYSICAL: Please see admission history and physical. HOSPITAL COURSE: The patient is a 63-year-old female who previously underwent a T12 through L5 instr umentation and fusion. She was admitted to [facility] on 09/15/2018, with worsening b ack pain concerning for wound infection. She was taken to the operating room on 09/16/2018, where she underwent washout of her wound with a drain placement. Cultures were positive for MRSA and she was p laced on IV antibiotics. She was followed by Infectious Disease, as well as Internal Medicine. She re quired a second washout on 09/18/2018. During this lumbar wound washout, there was a small pinhole du rotomy at the L3-4 level. She was kept on bedrest for 10 hours, but then as her activity was advanced , she had persistent postoperative headaches. She was taken back to the operating room on 09/21/2018, for exploration and washout of her lumbar wound, but there was no leaking of spinal fluid that was i dentified. The patient was placed back on bedrest and once again had persistent headaches when she wa s upright. She was returned to the operating room on 09/29/2018, with Dr. Johnnie Orr for exploratio n and repair of her cervical spinal fluid leak. Postoperatively, she was kept on bedrest, and once he r activity was advanced, she did well. She was ambulating on her own and tolerating a regular diet. S he remained on IV antibiotics under the care of Dr. Adams and the rest of the Infectious Disease tea m. She was discharged home with home health care on 10/10/2018. Patient was discharged with postopera tive lumbar wound instructions and recommended she return for neurosurgical followup appointment in a pproximately 10 to 14 days. She was also advised to follow up with infectious disease in 1 to 2 weeks after discharge. /[id number]/MODL
== END 2018-10-10 13:26 | disposition home health service (06) | DRG 856 ==
LOC: F3N 16:46
PROVIDERS: ADMIT Neurological Surgery; ATTEND Neurological Surgery
PROC: 02HV33Z Insertion of Infusion Device into Superior Vena Cava, Percutaneous Approach (ICD-10-PCS; 2018-09-15)
PROC: 30233N1 Transfusion of Nonautologous Red Blood Cells into Peripheral Vein, Percutaneous Approach (ICD-10-PCS; 2018-09-15)
PROC: 009U00Z Drainage of Spinal Canal with Drainage Device, Open Approach (ICD-10-PCS; 2018-09-16)
PROC: 00Q20ZZ Repair Dura Mater, Open Approach (ICD-10-PCS; 2018-09-18)
PROC: 009U00Z Drainage of Spinal Canal with Drainage Device, Open Approach (ICD-10-PCS; 2018-09-18)
PROC: 009U00Z Drainage of Spinal Canal with Drainage Device, Open Approach (ICD-10-PCS; 2018-09-21)
PROC: 02HV33Z Insertion of Infusion Device into Superior Vena Cava, Percutaneous Approach (ICD-10-PCS; 2018-09-25)
PROC: 00Q20ZZ Repair Dura Mater, Open Approach (ICD-10-PCS; principal; 2018-09-29 07:15)
PROC: 009U00Z Drainage of Spinal Canal with Drainage Device, Open Approach (ICD-10-PCS; principal; 2018-09-29 07:15)
DX: T81.42XA Infection following a procedure, deep incisional surgical site, initial encounter (principal); Y84.8 Other medical procedures as the cause of abnormal reaction of the patient, or of later complication, without mention of misadventure at the time of the procedure; G96.11 Dural tear; R78.81 Bacteremia; B95.61 Methicillin susceptible Staphylococcus aureus infection as the cause of diseases classified elsewhere; G92 Toxic encephalopathy; T40.605A Adverse effect of unspecified narcotics, initial encounter; E87.1 Hypo-osmolality and hyponatremia; D62 Acute posthemorrhagic anemia; R33.9 Retention of urine, unspecified; K64.9 Unspecified hemorrhoids; H53.9 Unspecified visual disturbance; I08.3 Combined rheumatic disorders of mitral, aortic and tricuspid valves; M79.2 Neuralgia and neuritis, unspecified; Z86.14 Personal history of Methicillin resistant Staphylococcus aureus infection; Z98.1 Arthrodesis status
CPT/HCPCS: 97116-GP; 97161-GP; 97165-GO; 97168-GO; 97530-GP; 97535-GO; A9585; C1751; G0378; G0379; J0171; J0697; J1100; J1170; J1650; J1885; J2250; J2370; J2405; J2704; J2997; J3010; J3370; P9016